=== PATIENT | male | born 1940 | race Caucasian/White ===

== ENCOUNTER 2020-05-04 14:40 | Outpatient (CLI) | payer MEDICARE, OTHER, SELFPAY ==
--- NOTE | ~2020-05-04 | US_ITS ---
EXAMINATION: US venous doppler [facility] DATE: 05/04/2020 15:26 INDICATION: Left lower limb pain. TECHNIQUE: Grayscale ultrasound images without and with compression and Doppler ultrasound images of the left lower extremity veins were obtained. COMPARISON: Ultrasound 08/11/2014 FINDINGS: The visualized portions of left common femoral vein, profunda (deep) femoral vein, femoral vein, popl iteal vein, peroneal veins, posterior tibial veins, and greater saphenous vein outflow are patent. Th ere is a moderate-sized Hickey's cyst. IMPRESSION: 1. No deep venous thrombosis. 2. Moderate-sized left Hickey's cyst. Reviewed, dictated and finalized at location A.
== END 2020-05-04 14:41 | disposition home or self-care (01) ==
PROVIDERS: PCP Family Medicine; Visit Provider Family Medicine
DX: M79.89 Other specified soft tissue disorders (principal); M71.22 Synovial cyst of popliteal space [Baker], left knee
CPT/HCPCS: 93971

== ENCOUNTER → 2020-05-10 10:50 | Outpatient (CLI) | payer MEDICARE, OTHER, SELFPAY ==
--- NOTE | ~2020-05-10 | XR_ITS ---
XR chest 2V 05/10/2020 11:23 Indication: Shortness of breath Procedure: 2 view chest Comparison: Comparison to multiple prior studies sequentially, with oldest reviewed study dated 12/10. Findings: There is left basilar airspace consolidation which has progressed since 11/02/2018. Right elmo ng clear. No pleural effusion, edema or pneumothorax. Status post median sternotomy. There are spinal fusion hardware overlying the lower thoracic spine incompletely visualized. Impression: 1: Progression of left basilar airspace consolidation which may represent atelectasis/scarring and/or developing pneumonia. Reviewed, dictated and finalized at location A. Impression: 1: Progression of left basilar airspace consolidation which may represent atele ctasis/scarring and/or developing pneumonia.
== END ==
PROVIDERS: PCP Family Medicine; Visit Provider Family Medicine
DX: R06.02 Shortness of breath (principal); R91.8 Other nonspecific abnormal finding of lung field
CPT/HCPCS: 71046

== ENCOUNTER → 2020-12-27 10:42 | Outpatient (CLI) | payer MEDICARE, OTHER, SELFPAY ==
--- NOTE | ~2020-12-27 | XR_ITS ---
EXAMINATION: XR chest 2V DATE: 12/27/2020 11:03 INDICATION: Shortness of breath. TECHNIQUE: Frontal and lateral views of the chest were obtained. COMPARISON: Chest 2 views 05/10/2020 FINDINGS: The lung volumes are normal. There is a diffuse interstitial pattern in the lungs with a lo wer lung predominance. No pleural effusion or pneumothorax. Cardiomegaly is noted. Median sternotomy wires are noted. There are changes of posterior fusion procedure in thoracic and lumbar spine. IMPRESSION: 1. Interstitial pattern in the lungs with a lower lung predominance, consistent with mild pulmonary e saqib versus chronic interstitial lung disease. 2. Cardiomegaly. Reviewed, dictated and finalized at location B. IMPRESSION: 1. Interstitial pattern in the lungs with a lower lung predominance, consistent with mild pulmonary edema versus chronic interstitial lung disease. 2. Cardiomegaly.
== END ==
PROVIDERS: Visit Provider Internal Medicine Cardiovascular Disease
DX: R06.00 Dyspnea, unspecified (principal); I25.708 Atherosclerosis of coronary artery bypass graft(s), unspecified, with other forms of angina pectoris; I51.7 Cardiomegaly; R91.8 Other nonspecific abnormal finding of lung field
CPT/HCPCS: 71046

== ENCOUNTER → 2021-01-04 10:25 | Outpatient (CLI) | payer MEDICARE, OTHER, SELFPAY ==
--- NOTE | ~2021-01-04 | XR_ITS ---
XR chest 2V DATE: 01/04/2021 10:36 INDICATION: Shortness of breath TECHNIQUE: PA and lateral views COMPARISON: 12/27/2020 2 view chest FINDINGS: Status post median sternotomy. Thoracolumbar spinal rods and pedicle screws. Cardiomegaly. Aortic calcification. There are diminished infiltrates and/atelectasis in the bilateral lung bases and diminished small rig ht pleural effusion since 12/27/2020. IMPRESSION: Mild improvement of infiltrates and/atelectasis at the lung bases, diminished small right pleural effusion since 12/27/2020 2 Reviewed, dictated and finalized at location B.
== END ==
PROVIDERS: PCP Physician Assistant; Visit Provider Internal Medicine Cardiovascular Disease
DX: R06.02 Shortness of breath (principal); R06.00 Dyspnea, unspecified; I25.10 Atherosclerotic heart disease of native coronary artery without angina pectoris; R91.8 Other nonspecific abnormal finding of lung field
CPT/HCPCS: 71046

== ENCOUNTER → 2024-09-03 13:39 | Outpatient (CLI) | payer MEDICARE, OTHER, SELFPAY ==
--- NOTE | ~2024-09-03 | XR_ITS ---
EXAMINATION: XR chest 2V Exam Date/Time: 09/03/2024 13:50 SODA WORKER HISTORY: Acute cough, SOB Comparison: 01/04/2021. RESULT: Lines, tubes, and devices: Intact sternotomy wires. Partially visualized thoracolumbar fusion hardwa re. An electronic device projects over the midline chest. Lungs and pleura: Diffuse patchy groundglass opacities, worse in the left mid and lower lung, overly ing diffuse coarse reticular opacities. Minimal bilateral costophrenic angle blunting. Low volume wit h crowding in the lateral view. Cardiomediastinal silhouette: Stable. Other: No acute osseous or upper abdominal finding. IMPRESSION: Left mid and lower lung airspace disease possibly representing pneumonia, overlying moderate chronic emphysematous/interstitial change. Reviewed, dictated and finalized at location K. WORKER IMPRESSION: Left mid and lower lung airspace disease possibly representing pneumonia, overl jarrod moderate chronic emphysematous/interstitial change.
== END ==
LOC: EXPCRAD 13:44
PROVIDERS: PCP Physician Assistant; Visit Provider Physician Assistant
DX: R05.1 Acute cough (principal); R06.02 Shortness of breath; R91.8 Other nonspecific abnormal finding of lung field
CPT/HCPCS: 71046

== ENCOUNTER 2024-09-27 00:15 | Emergency (ER) | payer MEDICARE, OTHER, SELFPAY ==
--- NOTE | 2024-09-27 00:47 | ED.CPR ---
HPI - CPR General Chief Complaint: Cardiac Arrest/CPR Stated Complaint: CARDIAC ARREST Time Seen by Provider: 09/27/24 00:47 Source: family and EMS Mode of arrival: EMS History of Present Illness HPI narrative: Patient presents in cardiac arrest with CPR in progress. Found down in bed at home with last known well 30 minutes prior. had stated he had been weak lately. Found on the floor. Pulseless for EMS and CPR immediately initiated. Patient found to have asystole and PEA. 18 minutes CPR performed after which ROSC achieved for 3-4 minutes and lost again, chest compressions re-initiated for 6-7 minutes. Glucose 306 for EMS. IO in right tibia and intubated with 7.5 ETT after which there has been return of bloody sputum requiring suction, approximately 150ml bright red secretions out. History CHF. Related Data Home Medications ?Medication ?Instructions ?Recorded ?Confirmed ?Last Taken ?Type amlodipine 5 mg tablet 5 mg PO DAILY 08/02/19 05/10/24 Unknown History finasteride 1 mg tablet 1 mg PO DAILY 08/02/19 05/10/24 Unknown History folic acid 400 mcg tablet 0.4 mg PO DAILY 08/02/19 05/10/24 Unknown History losartan 100 1 tablet PO DAILY 08/02/19 05/10/24 Unknown History mg-hydrochlorothiazide 12.5 mg tablet (Hyzaar) metoprolol tartrate 50 mg tablet 50 mg PO Q12H 08/02/19 05/10/24 Unknown History pantoprazole 40 mg tablet,delayed 40 mg PO QAM 08/02/19 05/10/24 Unknown History release atorvastatin 20 mg tablet 20 mg PO QPM 01/02/20 05/10/24 Unknown History isosorbide dinitrate 30 mg tablet 30 mg PO BID 01/15/23 05/10/24 Unknown History gpfvlnxx-rsk-mviai 120 mcg-lutein tablet PO 01/15/23 05/10/24 Unknown History 150 mcg-herb 50 mg chewable tablet (Alive Men's 50 Plus Multivitamin) furosemide 40 mg tablet 120 mg PO QAM 04/27/23 05/10/24 Unknown History Allergies Allergy/AdvReac Type Severity Reaction Status Date / Time No Known Allergies Allergy Verified 05/10/24 13:08 [facility] Past Medical History Medical History CHF (congestive heart failure) Vitamin D deficiency Type 2 diabetes mellitus with hyperglycemia, with long-term current use of insulin Hypertension Hyperlipidemia Surgical History Surgical History History of quadruple bypass History of open heart surgery 2 stents History of back surgery x2 Family History Family History Other Cerebrovascular accident Social History Social History Smoking packs per day: 1 Smoking cigarettes per day: 20.0 Years smoked: 16 Smoking pack-years: 16.00 Smoking status: Former smoker Tobacco type: cigarettes Alcohol intake: current Alcohol use details: very little Substance use: never Lack of Transportation: No Lack of Food: Never True Current Housing: I Have Housing Concerned About Future Housing: No Difficulty Paying Gas/Electric Bills: No Difficulty Paying for Meds: No Currently Unemployed: No Education: Master's Degree or Higher Difficulty w/ Childcare or Family Care: No Living arrangements: with family Additional living arrangements comments: Exam Narrative: Vitals: Patient does not have vital signs General: Patient is unresponsive and pale Head: Normocephalic, atraumatic. Eyes: Pupils are fixed and dilated. ENT: External ears WNL. Nares patent. ETT in place with jorge bloody secretions. Neck: Supple no masses. Trachea is midline. Lungs: No spontaneous respirations, coarse but bilateral breath sounds with BVM. Cardiovascular: Marcus device performing compressions which does result in palpable femoral pulses during compressions. Abdomen. Soft MSK: No deformity. Neurological: Patient does not display any spontaneous activity, is unresponsive, does not withdraw to pain. Skin: Cold and pale. MDM - Cardiac Arrest/CPR MDM Narrative Medical decision making narrative: This is a 84 year old male who presents to the emergency department as a resuscitation with EMS with chief complaint of cardiac arrest. EMS was called to the scene, and found the patient to be pulseless, and thus started resuscitative efforts. Last known well had been 30 minutes prior to calling 911. Asystole and PEA with Total down time on scene before obtaining ROSC 18 minutes. Other than the initiation of compressions, they have initiated epinephrine via IO and intubated patient with 7.5 ETT. had reported to them that patient had history CHF and had been weak recently. Patient briefly had pulse en route before becoming pulseless again and compressions resumed. 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 Immediately upon entering, resuscitation compressions are continued, the patient is disrobed, and placed on continuous cardiac monitoring with defibrillation pads. At first pulse check, no pulses are palpated but there is cardiac activity on ultrasound, poor squeeze but not fibrillatory. ACLS continued. See RN notes for log of timing of events and medications administered. Patient predominantly has PEA but there is an episode of ROSC after which patient quickly becomes bradycardic and then vtach on the monitor for which defibrillation performed. Went to family room and patient's notes they saw his channel rebuilder Dr Bagley today given he has gained 15 points since yesterday but no changes made to meds. brought to bedside where resuscitation efforts are being continued as per ACLS protocols. We discussed that on several pulse checks he does not have a pulse and at other times he does but then quickly loses it again. Given the patient's downtime and the efforts thus far, patient's does agree with terminating further efforts. After compressions held, he does have a palpable pulse (technically ROSC) with an organized rhythm briefly, likely secondary to some lingering effects of epinephrine but quickly becomes bradycardic and loses pulses. Patient is pronounced . Time of is 00:44. Family reports PCP is Neema Garay. Differential Diagnosis Differential diagnosis: Likely acute massive pulmonary embolism, acute respiratory failure, acute myocardial infarction, cardiac arrest and sudden cardiac Lab Data Attestation: I reviewed the patient's lab results. Labs: Lab Results 09/27/24 Range/Units 00:18 POC Capillary Glucose 177 H (65-105) mg/dl Discharge Plan Discharge Clinical Impression: Cardiopulmonary arrest Patient Disposition: Condition: Patient Language: Azeri Prescriptions: No Action metoprolol tartrate 50 mg tablet 50 mg PO Q12H losartan-hydrochlorothiazide [Hyzaar] 100-12.5 mg tablet 1 tablet PO DAILY pantoprazole 40 mg tablet,delayed release (DR/EC) 40 mg PO QAM folic acid 400 mcg tablet 0.4 mg PO DAILY amlodipine 5 mg tablet 5 mg PO DAILY finasteride 1 mg tablet 1 mg PO DAILY furosemide 40 mg tablet 120 mg PO QAM (DME) pen needle, diabetic [BD Ultra-Fine Mini Pen Needle] 31 gauge x 3/16 needle See Rx Instructions .ROUTE .MEDSUPPLY Qty: 100 1RF Rx Instructions: use once daily metformin 500 mg tablet extended release 24 hr 1,000 mg PO BID 90 Days Qty: 360 1RF docusate sodium [Colace] 100 mg capsule 100 mg PO DAILY Qty: 90 1RF atorvastatin 20 mg tablet 20 mg PO QPM isosorbide dinitrate 30 mg tablet 30 mg PO BID Rx Instructions: allow nitrate-free interval of 12-14 hrs per 24-hr period Alive Men's 50 Plus Multivit 120 mcg-150 mcg -50 mg tablet,chewable PO (DME) FreeStyle Precision Kevin Strips Strip See Rx Instructions .Route Qty: 50 0RF Rx Instructions: As directed (DME) FreeStyle Dutch 2 Sensor Kit See Rx Instructions .Route Qty: 6 2RF Rx Instructions: As directed, check 4 times daily Baqsimi 3 mg/actuation spray,non-aerosol 3 mg intranasal ONCE PRN (Reason: hypoglycemia) Qty: 1 0RF Rx Instructions: as a single dose glucose [Dex4 Glucose] 4 gram tablet,chewable 16 g PO Q15M PRN (Reason: hypoglycemia) Qty: 60 1RF Rx Instructions: until symptoms of low blood sugar are controlled (DME) FreeStyle Dutch 2 [place] Misc See Rx Instructions .Route Qty: 1 0RF Rx Instructions: As directed, check 4 times daily insulin glargine [Lantus Solostar U-100 Insulin] 100 unit/mL (3 mL) insulin pen 30 unit subcut DAILY 90 Days Qty: 27 1RF dulaglutide 4.5 mg/0.5 mL pen injector 4.5 mg subcut WEEKLY Qty: 6 1RF Follow-up/Referrals: Tanisha,DEIDRE Bethea [Primary Care Provider] - Time of Disposition: 00:44
--- NOTE | 2024-09-27 00:58 | PC.NURSE ---
0017: Patient arrives via EMS to room 7 in ED. 0019: A pulse check is performed, PEA. An Epi is given followed by a flush. CPR resumed. 0020: EDP Dr. Carvalho uses US at bedside; patient not in full arrest 0021: Calcium IVP is given. 0023: Pulse check; PEA. EDP Dr. Carvalho state no pulses in the femoral arteries. 0024: EDP Dr. Carvalho states that she feels patient has a carotid pulse. Sinus adalberto is the rhythm. 0025: Patient continues to have carotid pulses, but weak, patient still in Sinus adalberto (35bpm). 0026: Patient's rhythm changes to ventricular tachycardia. No pulse present. [place] charged and patient shocked at 200 Joules. 0027: Another round of Epi is given 0028: EMS Marcus device is switched out with the EDs Marcus device. 0030. A castellano catheter is placed. [place] urine flowed out. 0031: Pulse check. PEA. Epi pushed followed by a flush. 0033: An amp of Bicarb is given followed by a flush. 0035: Pulse check; PEA 0041: EDP Dr. Carvalho palpates a carotid artery and feels pulse. Per EDP Dr. Carvalho ROSC has been obtained, but she feels this is due to lingering effects of Epi. 0042: A blood pressure is obtained 37/27 0043: Pulse check; PEA. 0044: EDP Dr. Carvalho states TOD 0044.
--- NOTE | 2024-09-27 02:23 | PC.NURSE ---
Throughout whole cardiac arrest and efforts approximately 300mL of red/pink frothy fluid was suctioned out of the patient from both the ETT inline and an Yankauer.
--- OUTSIDE RECORDS SUMMARY | 2024-09-27 06:37 | XMS_ITS | Encounter Summary ---
Author Organization [facility] Address [address] [place] [address] Care Team Providers Care Shop Repairer Name Role Phone Unavailable Primary Care Provider Unavailabl e Encounter Details Date Type Department Care Team (Late st Contact Info) Description 09/06/2018 Lab Requisition [facility] Care DermPath Lab [address] [facility], [facility] [place] [address] Meenakshi Chan MD [address] [facility] [address] [place] [address] Social History Tobacco Use Types Packs/Day Years Used Date Smoking Tobacco: Never Assessed Sex and Gender Information Value Date Recorded Sex Assigned at Not on file Gender Identity Not on file Sexual Orientation Not on file documented as of this encounter Plan of Treatment Not on file documented as of this encounter Procedures Procedure Name Priority Date/Time Associated Diagnosis Comments DERMATOPATH TECHNICAL REPORT Routine 09/03/2018 12:00 AM MANAGER SPANISH documented in this encounter Results * DERMATOPATH TECHNICAL REPORT (09/03/2018 12:00 AM MANAGER SPANISH) Case Report Dermatopathology Report Case: [id number] Authorizing Provider: Meenakshi Chan MD Collected: 09/03/2018 12:00 AM Pathologist: Julienne Dawn MD Received: 09/06/2018 08:08 AM Specimen: Skin, left thigh 9 12:16 PM MANAGER SPANISH DERMATOPATHOLOGY LABORATORY Clinical History Bx proven BCC. Check margins. Previous Bx: [id number]. 9 12:16 PM MANAGER SP[facility]ISH DERMATOPATHOLOGY LABORAT[facility] Gross Description Specimen A: Received is one formalin filled container labeled with the patient's name and designated left thigh.The specimen consists of an ellipse measuring [id number] and is oriented with the notch at the 3 o'clock position labeled on the requisition as superior. The 12 to 6 o'clock margin is inked green. The 6 o'clock to 12 o'clock margin is inked black. The 12 o'clock tip is submitted in cassette 1. The 6 o'clock tip is submitted in cassette 2. The remainder of the ellipse is serially sectioned and submitted in cassettes 3-6. Jar 0. [facility] Dermat[facility] performed the technical component only. 9 12:16 PM [facility] DERMATOPATHOLOGY [facility]ORATORY Embedded Images 12:16 PM [facility] DERMATOPATHOLOGY [facility]ORAT[facility] DISCLAIMER An external and internal positive and negative controls are appropriate for the histochemical, immunohistochemical and immunofluorescence stain(s) in this case (if any), except where stated explicitly. The performance characteristics of the stain(s) cited in this report were developed and its performance characteristic determined by the Dermatopathology Laboratory at [facility], directed by Dr. Dede Ku. These tests need not be, and therefore are not, approved by the [place] Food and Drug Administration. The tests are used for clinical purposes. 9 12:16 PM [facility] DERMATOPATHOLOGY LABORATORY Pathology/Cytolog y TISSUE SPECIMEN FROM SKIN / Unknown 09/03/2018 09/06/2018 8:08 AM MANAGER SPANISH Meenakshi Chan MD LAB - PATHOLOGY/CYTO LOGY ORDERABLES DERMATOPATHOLOGY LABORATORY [facility] - Department of Dermatology [address] [place] [address] 5th [place] [address], [facility] [phone] documented in this encounter Visit Diagnoses Not on filedocumented in this encounter
--- OUTSIDE RECORDS SUMMARY | 2024-09-27 06:37 | XMS_ITS | Encounter Summary ---
Author Organization [facility] Address [address] [place] [address] Care Team Providers Care Piece Marker Small Arms Name Role Phone Unavailable Primary Care Provider Unavailabl e Encounter Details Date Type Department Care Team (Late st Contact Info) Description 07/07/2018 Lab Requisition [facility] Care DermPath Lab [address] [facility], [facility] [place] [address] Meenakshi Chna MD [address] [facility] [address] [place] [address] Social History Tobacco Use Types Packs/Day Years [...] Associated Diagnosis Comments DERMATOPATH TECHNICAL REPORT Routine 07/05/2018 12:00 AM MATERIALS ASSISTANT documented in this encounter Results * DERMATOPATH TECHNICAL REPORT (07/05/2018 12:00 AM MATERIALS ASSISTANT) Case Report Dermatopathology Report Case: [id number] Authorizing Provider: Meenakshi Chan MD Collected: 07/05/2018 12:00 AM Pathologist: Katie Aceevs MD Received: 07/07/2018 07:07 AM Specimen: Skin, left thigh 8 12:59 PM MATERIALS ASSISTANT DERMATOPATHOLOGY LABORATORY Clinical History R/O BCC, pink scaly plaque 8 12:59 PM MATERIALS ASSISTANT DERMATOPATHOLOGY LABORATORY Gross Description Specimen A: Received is one formalin filled container labeled with the patient's name and designated left thigh. The specimen consists of a shave biopsy measuring [id number] mm. Jar 0. [facility] Dermatopathology Laboratory performed the technical component only. 8 12:59 PM [facility] Embedded Images 8 12:59 PM [facility] DISCLAIMER An external and internal positive and negative controls are appropriate for the histochemical, immunohistochemical and immunofluorescence stain(s) in this case (if any), except where stated explicitly. The performance characteristics of the stain(s) cited in this report were developed and its performance characteristic determined by the Dermatopathology Laboratory at [facility]. These tests need not be, and therefore are not, approved by the [place] Food and Drug Administration. The tests are used for clinical purposes. 8 12:59 PM [facility] Pathology/Cytolog y TISSUE SPECIMEN FROM SKIN / Unknown 07/05/2018 07/07/2018 7:07 AM MATERIALS ASSISTANT Meenakshi Chan MD LAB - PATHOLOGY/CYTO LOGY ORDERABLES DERMATOPATHOLOGY LABORATORY [facility] - Department of Dermatology [address] [facility], 5th Floor Lab B [address] [phone] documented in this encounter Visit Diagnoses Not on filedocumented in this encounter
--- OUTSIDE RECORDS SUMMARY | 2024-09-27 06:37 | XMS_ITS | Encounter Summary ---
Author Organization [facility] Address [address] [place] [address] Care Team Providers Care Emr Analyst Name Role Phone Unavailable Primary Care Provider Unavailabl e Encounter Details Date Type Department Care Team (Late st Contact Info) Description 12/23/2019 Lab Requisition [facility] DermPath Lab [address] [facility], [facility] [place] [address] Meenakshi Chan MD [address] [facility] 3 [place] [address] Social History Tobacco Use Types Packs/Day Years [...] Associated Diagnosis Comments DERMATOPATH TECHNICAL REPORT Routine 12/22/2019 12:00 AM CDT documented in this encounter Results * DERMATOPATH TECHNICAL REPORT (12/22/2019 12:00 AM CDT) Case Report Dermatopathology Report Case: [id number] Authorizing Provider: Meenakshi Chan MD Collected: 12/22/2019 12:00 AM Ordering Location: [facility] DermPath Lab Received: 12/23/2019 11:20 AM Pathologist: Deena Ku MD Specimen: Skin, left inner lower leg 0 2:33 PM CDT DERMATOPATHOLOGY LABORATORY Clinical History R/O BCC, SCC; eroded pink papule. 0 2:33 PM CDT DERMATOPATHOLOGY LABORATORY Gross Description Specimen A: Received is one formalin filled container labeled with the patient's name and designated left inner lower leg. The specimen consists of a shave measuring [id number]. Jar 0. [facility] Dermatopathology Laboratory performed the technical component only. 0 2:33 PM CDT DERMATOPATHOLOGY LABORATORY Embedded Images 0 2:33 PM CDT DERMATOPATHOLOGY LABORATORY DISCLAIMER An external and internal positive and negative controls are appropriate for the histochemical, immunohistochemical and immunofluorescence stain(s) in this case (if any), except where stated explicitly. The performance characteristics of the stain(s) cited in this report were developed and its performance characteristic determined by the Dermatopathology Laboratory at [facility], directed by Dr. Dede Ku. These tests need not be, and therefore are not, approved by the [place] Food and Drug Administration. The tests are used for clinical purposes. 0 2:33 PM CDT DERMATOPATHOLOGY LABORATORY Pathology/Cytolog y TISSUE SPECIMEN FROM SKIN / Unknown 12/22/2019 12/23/2019 11:20 AM CDT Meenakshi Chan MD LAB - PATHOLOGY/CYTO LOGY ORDERABLES DERMATOPATHOLOGY LABORATORY [facility] - Department of Dermatology [address] [facility] 5th [place] [address], [facility] [phone] documented in this encounter Visit Diagnoses Not on filedocumented in this encounter
--- OUTSIDE RECORDS SUMMARY | 2024-09-27 06:38 | XMS_ITS | Encounter Summary ---
Author Organization [facility] Address [address] [place] [address] Care Team Providers Care Mental Telepathist Name Role Phone Unavailable Primary Care Provider Unavailabl e Encounter Details Date Type Department Care Team (Late st Contact Info) Description 06/05/2023 Lab Requisition [facility] - DermPath Lab [address] [place] [address] Bismark Daniel MD [address] [place] [address] Social History Tobacco Use Types Packs/Day Years Used Date Smoking Tobacco: Never Assessed Sex and Gender Information Value Date Recorded Sex Assigned at Not on file Gender Identity Not on file Sexual Orientation Not on file documented as of this encounter Plan of Treatment Not on file documented as of this encounter Procedures Procedure Name Priority Date/Time Associated Diagnosis Comments DERMATOPATHOLOGY Routine 06/04/2023 12:0 0 AM CDT documented in this encounter Results * DERMATOPATHOLOGY (06/04/2023 12:00 AM CDT) Case Report Dermatopathology Report Case: [id number] Authorizing Provider: Bismark Daniel MD Collected: 06/04/2023 12:00 AM Ordering Location: [facility] Received: 06/05/2023 09:10 AM Pathologist: Katie Aceves MD Specimen: Skin, right stricklnad 12:56 PM CDT DERMATOPATHOLOGY LABORATORY Final Diagnosis Specimen A. SKIN, right strickland: BASAL CELL CARCINOMA, SUPERFICIAL MULTIFOCAL (C44.712) STASIS CHANGES (L30.8) 12:56 PM CDT DERMATOPATHOLOGY LABORATORY Clinical History AK vs. BCC. Path# [id number] 12:56 PM T DERMATOPATHOLOGY LABORATORY Gross Description Specimen A: Received is one formalin filled container labeled with the patient's name and designated right strickland. The specimen consists of a shave biopsy measuring 7x5x1 mm. Jar 0. 12:56 PM T DERMATOPATHOLOGY LABORATORY Microscopic Description Specimen A. SKIN, right strickland: Attached to the undersurface of the epidermis, there are small aggregates of basaloid cells with a high nuclear to cytoplasmic ratio and peripheral palisading. The dermis shows a sparse, perivascular lymphocytic infiltrate surrounding dilated, thick-walled vessels, which are increased in number. 12:56 PM T DERMATOPATHOLOGY LABORATORY Disclaimer An external and internal positive and negative controls are appropriate for the histochemical, immunohistochemical and immunofluorescence stain(s) in this case (if any), except where stated explicitly. The performance characteristics of the stain(s) cited in this report were developed and its performance characteristic determined by the Dermatopathology Laboratory at [facility], directed by Dr. Dede Ku. These tests need not be, and therefore are not, approved by the [place] Food and Drug Administration. The tests are used for clinical purposes. Billing Codes Specimen Charges Stain Charges 86367 1 12:56 PM CDT DERMATOPATHOLOGY LABORATORY Embedded Images 12:56 PM CDT DERMATOPATHOLOGY LABORATORY Pathology/Cytolog y TISSUE SPECIMEN FROM SKIN / Unknown 06/04/2023 06/05/2023 9:10 AM CDT Bismark Daniel MD LAB - PATHOLOGY/CYTO LOGY ORDERABLES DERMATOPATHOLOGY LABORATORY [facility] - Department of Dermatology [address], [address] [phone] documented in this encounter Visit Diagnoses Not on filedocumented in this encounter
--- OUTSIDE RECORDS SUMMARY | 2024-09-27 06:38 | XMS_ITS | Encounter Summary ---
Author Organization [facility] Address [address] [place] [address] Phone Care Team Providers Care Bump Grader Operator Name Role Phone Neema Garay Primary Care Provider [phone] Malachi Braden MD Unavailable Ag Redding MD Unavailable Rosalinda Bingham MD Unavailable [phone] Yissel Lenoard MD Unavailable [phone] Kostas Martinez MD Unavailable [phone] Bradley Griffin MD Unavailable [phone] Encounter Details Date Type Department Care Team (Late st Contact Info) Description 09/27/2024 Telephone [facility] Scheduling [address] [place] [address] Chery Quijano Social History Tobacco Use Types Packs/Day Years Used Date Smoking Tobacco: Former Cigarettes 1.1 26.7 0 03/30/1966 - 03/30/1986 Smokeless Tobacco: Never Alcohol Use Standard Drinks/Week Comments Yes 1 (1 standard drink = 0.6 oz pur e alcohol) rare [facility] Utilities Answer Date Recorded In the past 12 months has th e electric, gas, oil, or water company threatened to shut off services in your home? No 04/04/2024 Social Connection and Isolat ion Panel [NHANES] Answer Date Recorded In a typical week, how many times do you talk on the phone with family, friends, or neighbors? More than three times a week 04/04/2024 How often do you get togethe r with friends or relatives? More than three times a week 04/04/2024 How often do you attend chur ch or sabianist services? Never 04/04/2024 Do you belong to any clubs o r organizations such as caodaism groups, unions, fraternal or athletic groups, or school groups? No 04/04/2024 How often do you attend meet ings of the clubs or organizations you belong to? Never 04/04/2024 Are you , , di vorced, , never , or living with a partner? 04/04/2024 AUDIT-C Answer Date Recorded Q1: How often do you have a drink containing alcohol? Never 08/29/2024 Q2: How many drinks containi ng alcohol do you have on a typical day when you are drinking? Patient does not drink Q3: How often do you have si x or more drinks on one occasion? Never 08/29/2024 Overall Financial Resource Strain (CARDIA) Answe r Date Recorded How hard is it for you to pa y for the very basics like food, housing, medical care, and heating? Not very hard 04/04/2024 PHQ-2 Answer Date Recorded PHQ-2 Total Score (If total score is 3 or more points, staff should administer the PHQ-9) 0 08/29/2024 Hunger Vital Sign Answer Date Recorded Within the past 12 months, y ou worried that your food would run out before you got the money to buy more. Never true 04/04/20 24 Within the past 12 months, t he food you bought just didn't last and you didn't have money to get more. Never true 04/04/2024 PRAPARE - Transportation Answer Date Re corded In the past 12 months, has l ack of transportation kept you from medical appointments or from getting medications? No 03/17 In the past 12 months, has l ack of transportation kept you from meetings, work, or from getting things needed for daily living? No 04/04/2024 Housing Stability Vital Sign Answer Sae e Recorded In the last 12 months, was t here a time when you were not able to pay the mortgage or rent on time? No 04/04/2024 In the past 12 months, how m any times have you moved where you were living? 0 04/04/2024 At any time in the past 12 m [facility], were you homeless or living in a nursing home (including now)? No 04/04/2024 Personal Safety Answer Date Recorded Have you ever been in or are you currently in a harmful physical or emotional relationship or is someone making you feel afraid or unsafe? Denies 06/08/2024 Sex and Gender Information Value Date Recorded Sex Assigned at Not on file Legal Sex Male 8:56 PM BARBER OR BEAUTY SHOP MANAGER Gender Identity Male 07/06/2024 6:10 PM BARBER OR BEAUTY SHOP MANAGER Sexual Orientation Not on file documented as of this encounter Miscellaneous Notes * Telephone Encounter - Meenakshi Maldonado - 09/27/2024 3:16 AM CST PT POC scanned into chart, no signature required. Received by [facility] dept in error. Thank you. ER OR BEAUTY SHOP MANAGER documented in this encounter Plan of Treatment Not on file documented as of this encounter Visit Diagnoses Not on filedocumented in this encounter Additional Health Concerns Infection Onset Date Last Indicated Resolved Time COVID: Recovered Comment:Added based on recent COVID infection. 09/08/2024 09/08/2024 documented as of this encounter Care Teams Bump Grader Operator Relationship Specialty Start Date End Date Neema Garay PA [address] [place] [address] PCP - General Internal Medicine 12/24/20 Malachi Braden MD [address] [place] [address] [address] [place] [address] Consulting Physician Cardiology 01/07/21 Ag Redding MD [address] [place] [address] [address] [place] [address] Consulting Physician Family Medicine 07/08/23 Rosalinda Bingham MD [address] [address] Consulting Physician Pulmonary Disease 04/08/24 Yissel Leonard MD [address] [facility] [address] [place] [address] Referring Physician Internal Medicine 04/26/24 Kostas Martinez MD [address] [facility] [address] [place] [address] Consulting Physician Cardiology 04/26/24 Bradley Griffin MD [address] [facility] [address] [place] [address] Consulting Physician Physical Medicine and Rehabilitation 08/29/24 documented as of this encounter
--- OUTSIDE RECORDS SUMMARY | 2024-09-27 06:38 | XMS_ITS | Encounter Summary ---
Author Organization [facility] Care Team Providers Care Treating Engineer Helper Name Role Phone Justice Ortega MD Primary Care Provider [phone] Neema Garay Primary Care Provider [phone] Malachi Braden MD Unavailable [phone] Ag Redding MD Unavailable [phone] Kadi De La Garza MA Unavailable Rosalinda Bingham MD Unavailable [phone] Yissel Leonard MD Unavailable [phone] Kostas Martinez MD Unavailable [phone] Trinity Maciel MA Unavailable Unavailable Bradley Griffin MD Unavailable [phone] Encounter Details Date Type Department Care Team (Latest Contact Info) Description 02/12/2016 Orders Only [facility] Provider, MD Ella [address] [place] [address] Social History Tobacco Use Types Packs/Day Years Used Date Smoking Tobacco: Never Assessed Sex and Gender Information Value Date Recorded Sex Assigned at Not on file Legal Sex Male 8:56 PM COMPOUNDING ASSISTANT Gender Identity Male 07/06/2024 6:10 PM COMPOUNDING ASSISTANT Sexual Orientation Not on file documented as of this encounter Plan of Treatment Not on file documented as of this encounter Procedures Procedure Name Priority Date/Time Associated Diagnosis Comments SCAN - LABS 02/13/2016 12:00 AM CDT documented in this encounter Results * SCAN - LABS (02/13/2016 12:00 AM CDT) Narrative 02/13/2016 12:00 AM CDT Ordered by an unspecified provider. us Historical Provider Final Res ult documented in this encounter Visit Diagnoses Not on filedocumented in this encounter Additional Health Concerns Infection Onset Date Last Indicated Resolved Time COVID19 09/21/2021 09/21/2021 10/01/2021 3:05 AM COMPOUNDING ASSISTANT COVID: Recovered Comment:Added based on recent COVID infection. 10/01/2021 10/01/2021 01/29/2022 3:05 AM C DT COVID: Suspected 08/29/2024 08/29/2024 08/29/2024 5:16 PM COMPOUNDING ASSISTANT COVID19 08/29/2024 08/29/2024 09/08/2024 3:05 AM COMPOUNDING ASSISTANT COVID: Recovered Comment:Added based on recent COVID infection. 09/08/2024 09/08/2024 documented as of this encounter Care Teams Treating Engineer Helper Relationship Specialty Start Date End Date Justice Ortega MD [address] [place] [address] PCP - General 02/05/17 12/23/20 Neema Garay PA [address] [facility] [address] [place] [address] PCP - General Internal Medicine 12/24/20 Malachi Braden MD [address] [facility] [address] [address] Consulting Physician Cardiology 01/07/21 Ag Redding MD [address] [facility] [address] [place] [address] Consulting Physician Family Medicine 07/08/23 Kadi De La Garza MA [address] [facility] [address] [place] [address] ACO Care Resaw Machine Operator 02/02/24 02/03/24 Rosalinda Bingham MD [address] [facility] [address] [place] [address] Consulting Physician Pulmonary Disease 04/08/24 Yissel Leonard MD [address] [facility] [address] [place] [address] Referring Physician Internal Medicine 04/26/24 Kostas Martinez MD [address] [facility] [address] [place] [address] Consulting Physician Cardiology 04/26/24 Trinity Maciel MA [address] [facility] [address] [place] [address] ACO Care Resaw Machine Operator 05/16/24 05/16/24 Bradley Griffin MD [address] [facility] [address] [place] [address] Consulting Physician Physical Medicine and Rehabilitation 08/29/24 documented as of this encounter
--- OUTSIDE RECORDS SUMMARY | 2024-09-27 06:38 | XMS_ITS | Encounter Summary ---
Author Organization [facility] Address [address] [facility] [place] [address] Care Team Providers Care Foam Fabricator Name Role Phone Unavailable Primary Care Provider Unavailabl e Encounter Details Date Type Department Care Team (Late st Contact Info) Description 01/18/2020 Lab Requisition [facility] DermPath Lab [address] [place] [address] Lucinda Lima MD [address] [place] [address] Social History Tobacco Use Types Packs/Day Years Used Date Smoking Tobacco: Never Assessed Sex and Gender Information Value Date Recorded Sex Assigned at Not on file Gender Identity Not on file Sexual Orientation Not on file documented as of this encounter Plan of Treatment Not on file documented as of this encounter Procedures Procedure Name Priority Date/Time Associated Diagnosis Comments DERMATOPATHOLOGY Routine 01/17/2020 12:0 0 AM CDT documented in this encounter Results * DERMATOPATHOLOGY (01/17/2020 12:00 AM CDT) Case Report Dermatopathology Report Case: [id number] Authorizing Provider: Lucinda Lima MD Collected: 01/17/2020 12:00 AM Ordering Location: [facility] DermPath Lab Received: 01/18/2020 07:36 AM Pathologist: Deena Ku MD Specimen: Skin, left cheek 0 5:10 PM CDT DERMATOPATHOLOGY LABORATORY Final Diagnosis Specimen A. 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 0 5:10 PM CDT DERMATOPATHOLOGY LABORATORY Gross Description Specimen A: Received is one formalin filled container labeled with the patient's name and designated left cheek. The specimen consists of a shave measuring 15o9g1to. Jar 0. 0 5:10 PM CDT DERMATOPATHOLOGY LABORATORY Microscopic Description Specimen A. SKIN, left cheek: The epidermis is acanthotic and shows full thickness disorderly maturation of keratinocytes, mitoses at different levels, and dyskeratotic cells. There is overlying parakeratosis and hyperkeratosis. 0 5:10 PM CDT DERMATOPATHOLOGY LABORATORY Disclaimer An external and internal positive and negative controls are appropriate for the histochemical, immunohistochemical and immunofluorescence stain(s) in this case (if any), except where stated explicitly. The performance characteristics of the stain(s) cited in this report were developed and its performance characteristic determined by the Dermatopathology Laboratory at [facility], directed by Dr. Dede Ku. These tests need not be, and therefore are not, approved by the [place] Food and Drug Administration. The tests are used for clinical purposes. Billing Codes Specimen Charges Stain Charges 45618 1 0 5:10 PM CDT DERMATOPATHOLOGY LABORATORY Embedded Images 0 5:10 PM CDT DERMATOPATHOLOGY LABORATORY Pathology/Cytolog y TISSUE SPECIMEN FROM SKIN / Unknown 01/17/2020 01/18/2020 7:36 AM CDT Lucinda Lima MD LAB - PATHOLOGY/CYTO LOGY ORDERABLES DERMATOPATHOLOGY LABORATORY [facility] - Department of Dermatology Communications [place] [address], [facility] [phone] documented in this encounter Visit Diagnoses Not on filedocumented in this encounter
--- OUTSIDE RECORDS SUMMARY | 2024-09-27 06:38 | XMS_ITS | Patient Health Summary ---
Author Organization [facility] Address [address] [place] [address] Care Team Providers Care Patient Access Coordinator Name Role Phone Unavailable Primary Care Provider Unavailabl e Note from [facility],non-owned Affiliates and Associated Physician Practices is amultiple site organization consisting of ambulatory clinics and hospital sitesin [place], [place], [place] and [place]. This disclosure is being madepursuant to the Care Everywhere program and may not contain all information available regarding this patient. Last updated 18.[facility] Social History Tobacco Use Types Packs/Day Years Used Date Smoking Tobacco: Never Assessed Sex and Gender Information Value Date Recorded Sex Assigned at Not on file Gender Identity Not on file Sexual Orientation Not on file Procedures * DERMATOPATHOLOGY(Performed 06/04/2023) * DERMATOPATHOLOGY(Performed 01/17/2020) * DERMATOPATH TECHNICAL REPORT(Performed 12/22/2019) * DERMATOPATH TECHNICAL REPORT(Performed 09/03/2018) * DERMATOPATH TECHNICAL REPORT(Performed 07/05/2018) Results * DERMATOPATHOLOGY (06/04/2023 12:00 AM CDT) Only the most recent of2 resultswithin the time period is included. Case Report Dermatopathology Report Case: [id number] Authorizing Provider: Bismark Daniel MD Collected: 06/04/2023 12:00 AM Ordering Location: [facility] DermPath Lab Received: 06/05/2023 09:10 AM Pathologist: Katie Aceves MD Specimen: Skin, right strickland 12:56 PM CDT DERMATOPATHOLOGY LABORATORY Final Diagnosis Specimen A. SKIN, right strickland: BASAL CELL CARCINOMA, SUPERFICIAL MULTIFOCAL (C44.712) STASIS CHANGES (L30.8) 12:56 PM CDT DERMATOPATHOLOGY LABORATORY Clinical History AK vs. BCC. Path# [id number] 12:56 PM CDT DERMATOPATHOLOGY LABORATORY Gross Description Specimen [...] which are increased in number. 12:56 PM CDT DERMATOPATHOLOGY LABORATORY Disclaimer An external and internal positive and negative controls are appropriate for the histochemical, immunohistochemical and immunofluorescence stain(s) in this case (if any), except where stated explicitly. The performance characteristics of the stain(s) cited in this report were developed and its performance characteristic determined by the Dermatopathology Laboratory at [facility], directed by Dr. Dede Ku. These tests need not be, and therefore are not, approved by the [place] Food and Drug Administration. The tests are used for clinical purposes. Billing Codes Specimen Charges Stain Charges 57052 1 12:56 PM CDT DERMATOPATHOLOGY LABORATORY Embedded Images 12:56 PM CDT DERMATOPATHOLOGY LABORATORY Pathology/Cytolog y TISSUE SPECIMEN FROM SKIN / Unknown 06/04/2023 06/05/2023 9:10 AM CDT Bismark Daniel MD LAB - PATHOLOGY/CYTO LOGY ORDERABLES DERMATOPATHOLOGY LABORATORY [facility] - Department of Dermatology [address], [address] [phone] * DERMATOPATH TECHNICAL REPORT (12/22/2019 12:00 AM CDT) Only the most recent of3 resultswithin the time period is included. Case Report Dermatopathology Report Case: [id number] Authorizing Provider: Meenakshi Chan MD Collected: 12/22/2019 12:00 AM Ordering Location: [facility] DermPath Lab Received: 12/23/2019 11:20 AM [...] The specimen consists of a shave measuring [id number]. Jar 0. [facility] Dermatopathology Laboratory performed the technical component [...] characteristic determined by the Dermatopathology Laboratory at [facility], directed by Dr. Dede Ku. These tests need not be, and therefore are not, approved by the [place] Food and Drug Administration. The tests are used for clinical purposes. 0 2:33 PM CDT DERMATOPATHOLOGY LABORATORY Pathology/Cytolog y TISSUE SPECIMEN FROM SKIN / Unknown 12/22/2019 12/23/2019 11:20 AM CDT Meenakshi Chan MD LAB - PATHOLOGY/CYTO LOGY ORDERABLES DERMATOPATHOLOGY LABORATORY [facility] - Department of Dermatology [address] [place] [address], [address]th [place] [address], [facility] [phone]
--- OUTSIDE RECORDS SUMMARY | 2024-09-27 06:38 | XMS_ITS | Encounter Summary ---
Author Organization [facility] Address [address] [place] [address] Care Team Providers Care Fashion Director Party Plan Sales Name Role Phone Neema Garay Primary Care Provider [phone] Malachi Braden MD Unavailable Ag Redding MD Unavailable [phone] Kadi De La Garza MA Unavailable Rosalinda Bingham MD Unavailable Yissel Leonard MD Unavailable [phone] Kostas Martinez MD Unavailable [phone] Trinity Maciel MA Unavailable Unavailable Bradley Griffin MD Unavailable [phone] Encounter Details Date Type Department Care Team (Late st Contact Info) Description 09/11/2023 Telephone [facility] [address], [address] [place] [address] Rosalinda Mendez Ud, MD [address] [place] [address] Social History Tobacco Use Types Packs/Day Years Used Date Smoking Tobacco: Former Cigarettes 1 20 0 03/30/1966 - 03/30/1986 Smokeless Tobacco: Never Alcohol Use Standard Drinks/Week Comments Yes 1 (1 standard drink = 0.6 oz pur e alcohol) rare AUDIT-C Answer Date Recorded Q1: How often do you have a drink containing alcohol? Never 03/24/2023 Q2: How many drinks containi ng alcohol do you have on a typical day when you are drinking? Patient does not drink Q3: How often do you have si x or more drinks on one occasion? Never 03/24/2023 PHQ-2 Answer Date Recorded PHQ-2 Total Score (If total score is 3 or more points, staff should administer the PHQ-9) 0 06/15/2023 Personal Safety Answer Date Recorded Getting School Help Needed Not on file 07/29 Sex and Gender Information Value Date Recorded Sex Assigned at Not on file Legal Sex Male 8:56 PM MENS LOCKER ROOM ATTENDANT Gender Identity Male 07/06/2024 6:10 PM MENS LOCKER ROOM ATTENDANT Sexual Orientation Not on file documented as of this encounter Plan of Treatment Not on file documented as of this encounter Visit Diagnoses Not on filedocumented in this encounter Additional Health Concerns Infection Onset Date Last Indicated Resolved Time COVID: Suspected 08/29/2024 08/29/2024 08/29/2024 5:16 PM MENS LOCKER ROOM ATTENDANT COVID19 08/29/2024 08/29/2024 09/08/2024 3:05 AM MENS LOCKER ROOM ATTENDANT COVID: Recovered Comment:Added based on recent COVID infection. 09/08/2024 09/08/2024 documented as of this encounter Care Teams Fashion Director Party Plan Sales Relationship Specialty Start Date End Date Neema Garay PA [address] [facility] [address] [place] [address] PCP - General Internal Medicine 12/24/20 Malachi Braden MD [address] [facility] [address] [address] Consulting Physician Cardiology 01/07/21 Ag Redding MD [address] [facility] [address] [place] [address] Consulting Physician Family Medicine 07/08/23 Kadi De La Garza MA [address] [facility] [address] [place] [address] ACO Care Fabrication Specialist 02/02/24 02/03/24 Rosalinda Bingham MD [address] [facility] [address] [place] [address] Consulting Physician Pulmonary Disease 04/08/24 Yissel Leonard MD [address] [place] [address] Referring Physician Internal Medicine 04/26/24 Kostas Martinez MD [address] [facility] [address] [address] Consulting Physician Cardiology 04/26/24 Trinity Maciel MA [address] [place] [address] [address] [place] [address] ACO Care Fabrication Specialist 05/16/24 05/16/24 Bradley Griffin MD [address] [facility] [address] [place] [address] Consulting Physician Physical Medicine and Rehabilitation 08/29/24 documented as of this encounter
--- OUTSIDE RECORDS SUMMARY | 2024-09-27 06:38 | XMS_ITS | Encounter Summary ---
Author Organization [facility] Facility Care Team Providers Care Director Of Supply Chain Name Role Phone Justice Ortega MD Primary Care Provider + [phone] Neema Garay Primary Care Provider +- [phone] Malachi Braden MD Unavailable [phone] Ag Redding MD Unavailable [phone] Kadi De La Garza MA Unavailable Rosalinda Bingham MD Unavailable Yissel Leonard MD Unavailable [phone] Kostas Martinez MD Unavailable [phone] Trinity Maciel MA Unavailable Unavailable Bradley Griffin MD Unavailable [phone] Encounter Details Date Type Department Care Team (Latest Contact Info) Description 05/28/2016 Orders Only [facility] Provider, MD Ella [address] [place] [id number] Social History Tobacco Use Types Packs/Day Years Used Date Smoking Tobacco: Never Assessed Sex and Gender Information Value Date Recorded Sex Assigned at Not on file Legal Sex Male 8:56 PM 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 us Historical Provider Final Res ult documented in this encounter Visit Diagnoses Not on filedocumented in this encounter Additional Health Concerns Infection Onset Date Last Indicated Resolved Time COVID19 09/21/2021 09/21/2021 10/01/2021 3:05 AM SLEEP TECHNICIAN COVID: Recovered Comment:Added based on recent COVID infection. 10/01/2021 10/01/2021 01/29/2022 3:05 AM C DT COVID: Suspected 08/29/2024 08/29/2024 08/29/2024 5:16 PM SLEEP TECHNICIAN COVID19 08/29/2024 08/29/2024 09/08/2024 3:05 AM SLEEP TECHNICIAN COVID: Recovered Comment:Added based on recent COVID infection. 09/08/2024 09/08/2024 documented as of this encounter Care Teams Director Of Supply Chain Relationship Specialty Start Date End Date Justice Ortega MD [address] [place] [id number] PCP - General 02/05/17 12/23/20 Neema Garay PA [address] [facility] [address] [place] [address] PCP - General Internal Medicine 12/24/20 Malachi Braden MD [address] [facility] [address] [address] Consulting Physician Cardiology 01/07/21 Ag Redding MD [address] [facility] [address] [place] [address] Consulting Physician Family Medicine 07/08/23 Kadi De La Garza MA [address] [facility] [address] [place] [address] ACO Care Supervisor [employer] 02/02/24 02/03/24 Rosalinda Bingham MD [address] [facility] [address] [place] [address] Consulting Physician Pulmonary Disease 04/08/24 Yissel Leonard MD [address] [place] [address] Referring Physician Internal Medicine 04/26/24 Kostas Martinez MD [address] [facility] [address] [place] [address] Consulting Physician Cardiology 04/26/24 Trinity Maciel MA [address] [facility] [address] [place] [address] ACO Care Supervisor [employer] 05/16/24 05/16/24 Bradley Griffin MD [address] [facility] [address] [place] [address] Consulting Physician Physical Medicine and Rehabilitation 08/29/24 documented as of this encounter
--- OUTSIDE RECORDS SUMMARY | 2024-09-27 06:38 | XMS_ITS | Clinical Summary ---
Author Organization [facility], formerly 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 Was told by prescribing MD not to take after reaction reported. Medications ckufyphp-[id number]-CX-l ycopen-lutein 0.4-300-250 mg-mcg-mcg tablet Rx: Multivitamin Adults 50+ - Tablet take 1 tab in AM Active Sure Comfort Pen Needle 31 gauge x 5/16 needle 02/27/20 22 Active FreeStyle Precision Kevin Strips strip as directed 12/30/19 23 Active FreeStyle [place] Lite kit 05/15/20 23 Active folic acid (FOLVITE) 400 mcg tablet Take 2.5 tablets (1 mg total) by mouth waterproofer before breakfast 90 tablet 1 11/04/19 24 Active polyethylene glycol (MIRALAX) 17 gram packet Take 1 packet (17 g total) by mouth daily 30 packet 1 11/04/19 24 Active psyllium husk, aspartame, 3.4 gram/5.8 gram powderIndications :Chronic idiopathic constipation Mix 6gm powder into at least 8 oz cool water. Mix well until dissolved. Drink daily. 660 g 1 01/26/20 24 Active metFORMIN XR (GLUCOPHAGE XR) 500 mg 24 hr tablet Take 1 tablet (500 mg total) by mouth 2 (two) times a day 04/07/20 24 Active flash glucose sensor (FREESTYLE ABHIJEET 14 [facility] [place] Active latanoprost (XALATAN) 0.005 % ophthalmic solution 05/13/20 24 Active isosorbide mononitrate ER (IMDUR) 30 mg 24 hr tabletIndications :prevention of anginal pain in coronary artery disease Take 1 tablet (30 mg total) by mouth waterproofer before breakfast 90 tablet 1 05/25/20 24 Active montelukast (SINGULAIR) 10 mg tablet Take 1 tablet (10 mg total) by mouth nightly 90 tablet 1 05/25/20 24 Active amLODIPine (NORVASC) 5 mg tablet Take 1 tablet (5 mg total) by mouth daily 90 tablet 1 05/25/20 24 Active finasteride (PROSCAR) 5 mg tablet Take 1 tablet (5 mg total) by mouth waterproofer before breakfast 90 tablet 1 05/25/20 24 Active insulin glargine 100 unit/mL (3 mL) pen for injectionIndicati ons:Type 2 diabetes mellitus with hyperlipidemia (HCC) Inject 28 Units under the skin daily 24 mL 1 06/01/20 24 Active acetaminophen (TYLENOL) 500 mg tablet Take 1 tablet (500 mg total) by mouth every 6 (six) hours as needed for pain Active pantoprazole DR (PROTONIX) 40 mg EC tablet Take 1 tablet (40 mg total) by mouth waterproofer before breakfast 90 tablet 1 08/08/20 24 Active losartan-hydrochl orothiazide (HYZAAR) 100-25 mg per tablet Take 1 tablet by mouth daily 90 tablet 1 08/08/20 24 Active atorvastatin (LIPITOR) 20 mg tablet Take 2 tablets (40 mg total) by mouth daily 180 tablet 3 08/08/20 24 Active apixaban (Eliquis) 5 mg tablet Take 1 tablet (5 mg total) by mouth 2 (two) times a day May resume post procedurally 48*72 hrs after if urine is clear 180 tablet 1 08/08/20 24 Active albuterol HFA (PROVENTIL HFA,VENTOLIN HFA,PROAIR HFA) 90 mcg/actuation inhalerIndication s:SOB (shortness of breath) Inhale 2 puffs every 6 (six) hours as needed for wheezing 1 each 09/01/19 25 Active benzonatate (TESSALON) 100 mg capsuleIndication s:Cough Take 1 capsule (100 mg total) by mouth 3 (three) times a day as needed for cough 42 capsule 09/01/19 25 Active furosemide (LASIX) 40 mg tabletIndications :Chronic congestive heart failure, unspecified heart failure type (HCC) Take 1 tablet (40 mg total) by mouth daily 90 tablet 09/05/19 25 Active Trulicity 4.5 mg/0.5 mL pen injector 09/14/19 25 Active pregabalin (LYRICA) 75 mg capsule Take 1 capsule (75 mg total) by mouth 2 (two) times a day 60 capsule 2 09/20/19 25 Active Additional Information Patient not taking.Reported on 09/26/2024 albuterol HFA (PROVENTIL HFA,VENTOLIN HFA,PROAIR HFA) 90 mcg/actuation inhaler Inhale 2 puffs every 6 (six) hours as needed for wheezing 1 each 11/04/19 24 025 Discontinu ed(Reorder ) Trulicity 1.5 mg/0.5 mL pen injector Inject 0.5 mL (1.5 mg total) under the skin once a week Thursday 6 mL 08/15/20 24 025 Discontinu ed(Patient Reported) furosemide (LASIX) 40 mg tablet Take 1 tablet (40 mg total) by mouth daily 90 tablet 08/15/20 24 025 Discontinu ed(Reorder ) amoxicillin-clavu lanate (AUGMENTIN) 875-125 mg per tabletIndications :Pneumonia due to infectious organism, unspecified laterality, unspecified part of lung Take 1 tablet by mouth 2 (two) times a day for 10 days 20 tablet 09/05/19 25 025 Active Problems Problem Noted Date Diagnosed Date Acute cough 08/30/2024 Assessment & Plan (08/30/2024 4:09 PM GLOBAL EXPANSION SALES DIRECTOR): Patient is COVID positive today COVID 08/30/2024 Assessment & Plan (08/30/2024 4:07 PM GLOBAL EXPANSION SALES DIRECTOR): Let pt know the newest CDC recommendations are as follows: COVID: Isolate until fever free for 24 hours without the use of fever-reducing medications. Once patient starts to feel better, use enhanced hygiene practices, wash hands and avoid being around people who are at high risk Discuss Paxlovid, but he is out of the to use as he is at least on day 7 of symptoms, including risks, benefits, alternatives, side effects and proper use. Treat sxs with Tylenol, Cough/cold medication otc and add VitD 5,000IU daily and Zinc 50mg daily. He has tessalon perles at home so declines a new rx. Monitor sxs and call or go to the ER if has any of the following: --trouble breathing --persistent pain or pressure in the chest --new confusion --inability to wake or stay awake -- bluish lips or face Bilateral leg edema 08/30/2024 Assessment & Plan (08/30/2024 4:09 PM GLOBAL EXPANSION SALES DIRECTOR): Patient has bilateral lower leg edema with known congestive heart failure history. It sounds like he is having more difficulty laying down. He has been working with his animal attendant who is already doubled his Lasix. Advised his shortness of breath may be more related to his CHF then COVID. Encouraged him to decrease his salt intake. Increase fluids and elevate legs and use compression stockings. He states he does not use compression stockings closer to uncomfortable. Will continue to monitor closely. Because he states he thinks he is feeling better than he did the day before will monitor. Encouraged daily weights in the morning without clothes and record on paper so that we can follow them. If he gains more than 3-5 lb in just a couple of days he is to call immediately. If he has increased shortness of breath or is O2 saturation decreases below 90 then he is also to go ahead and go to the ER for immediate evaluation. It is after 5:00 p.m. on a Thursday night so will be more difficult to get him outpatient labs and chest x-ray. Will check on him in the morning and if his symptoms persist would benefit from a chest x-ray and BNP and CMP patient and both agree on the plan. In regards to the leg pain it may be related to the increased edema but once he is feeling better encouraged him to follow up with Dr. Griffin as he may benefit from these injections as discussed in 2022 NSVT (nonsustained ventricular tachycardia) 06/17 Gross hematuria 07/01/2024 Atrial fibrillation with slo w ventricular response (CMS/HCC) 07/01/2024 Flu vaccine need 06/04/2024 Assessment & Plan (06/04/2024 10:04 PM CDT): Flu vaccine updated today in the office Malignant neoplasm of urinary bladder 05/16/2024 Assessment & Plan (06/04/2024 10:04 PM CDT): Recent diagnosis of bladder cancer. Continue per Dr. Armas at [facility] current use of anticoagulant Assessment & Plan (06/04/2024 10:04 PM CDT): Continue with Daniel for anticoagulation for his AFib BMI 27.0-27.9,adult 04/06/2024 Assessment & Plan (08/30/2024 4:09 PM GLOBAL EXPANSION SALES DIRECTOR): Weight/BMI is in healthy range. Continue healthy lifestyle to maintain. Assessment & Plan (06/04/2024 10:04 PM CDT): Weight/BMI is in healthy range. Continue healthy lifestyle to maintain. Assessment & Plan (04/17/2024 10:32 PM CDT): Weight/BMI is in healthy range. Continue healthy lifestyle to maintain. Medicare annual wellness visit, subsequent 06/28 Assessment & Plan (06/04/2024 10:04 PM CDT): Encouraged healthy lifestyle, good nutrition and exercise. Encouraged Calcium and Vitamin D and weight bearing exercise for bone health. Reviewed immunizations. Reviewed age appropirate screenings. Medicare Wellness Documentation is completed within the chart Assessment & Plan (01/11/2024 2:55 PM CDT): Encouraged healthy lifestyle, good nutrition and exercise. Encouraged Calcium and Vitamin D and weight bearing exercise for bone health. Reviewed immunizations. Reviewed age appropirate screenings. Medicare Wellness Documentation is completed within the chart Actinic keratosis 05/04/2023 Age-related hearing loss 05/04/2023 Pulmonary fibrosis (CMS/HCC) 02/26/2023 Assessment & Plan (06/28/2023 8:17 PM GLOBAL EXPANSION SALES DIRECTOR): Continue per pulmonology Dr. Allen Chronic bilateral low back pain with right-sided sciatica 09/13/2022 Assessment & Plan (09/13/2022 7:53 PM GLOBAL EXPANSION SALES DIRECTOR): Patient has chronic back pain with pain radiating into the legs. Status post lumbar back surgery with hardware in the past. Had ABIs that essentially were negative so did not support claudication arterially. Need to consider UTI verses lumbar hardware breakdown versus other etiology beyond just the radicular pain. Will start with a urine culture. Will start with x-rays of the spine to confirm hardware placement. Follow-up on these results. If he would lose control of bowel or bladder different than what he chronically experiences he needs to immediately go to the ER. He verbalizes understanding. Claudication 08/24/2022 Assessment & Plan (08/24/2022 9:30 PM GLOBAL EXPANSION SALES DIRECTOR): Patient is complaining about leg pain bilaterally. The pain increases when legs hit the floor and then limit his ability to walk distances. 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 Will check arterial vascular studies and follow-up pending those results. Order was provided to patient for him to schedule at his convenience. Congestive heart failure (CMS/HCC) 12/29/2021 Assessment & Plan (08/30/2024 4:09 PM GLOBAL EXPANSION SALES DIRECTOR): Patient has bilateral lower leg edema with known congestive heart failure history. It sounds like he is having more difficulty laying down. He has been working with his animal attendant who is already doubled his Lasix. Advised his shortness of breath may be more related to his CHF then COVID. Encouraged him to decrease his salt intake. Increase fluids and elevate legs and use compression stockings. He states he does not use compression stockings closer to uncomfortable. Will continue to monitor closely. Because he states he thinks he is feeling better than he did the day before will monitor. Encouraged daily weights in the morning without clothes and record on paper so that we can follow them. If he gains more than 3-5 lb in just a couple of days he is to call immediately. If he has increased shortness of breath or is O2 saturation decreases below 90 then he is also to go ahead and go to the ER for immediate evaluation. It is after 5:00 p.m. on a Thursday night so will be more difficult to get him outpatient labs and chest x-ray. Will check on him in the morning and if his symptoms persist would benefit from a chest x-ray and BNP and CMP patient and both agree on the plan. In regards to the leg pain it may be related to the increased edema but once he is feeling better encouraged him to follow up with Dr. Griffin as he may benefit from these injections as discussed in 2022 Assessment & Plan (01/11/2024 2:54 PM CDT): Patient appears compensated today. Continue per Cardiology. Continue to monitor for lower extremity edema, increased shortness of breath, difficulty laying down etc.. If this would occur he is to reach out to us or Cardiology immediately for assistance Assessment & Plan (06/28/2023 8:25 PM GLOBAL EXPANSION SALES DIRECTOR): Recent hospitalization for CHF. Strongly encouraged him to get in with Dr. Braden this sooner than later. He has follow-up in August but I still think he would benefit from seeing him sooner. He states he has all of the medications that were sent home with discharge any feels as though he is fairly well compensated currently. Assessment & Plan (12/28/2022 7:51 PM CDT): Continue per Cardiology. Appears compensated today. Continue with Lasix Assessment & Plan (08/24/2022 9:28 PM GLOBAL EXPANSION SALES DIRECTOR): Continue per Cardiology. Assessment & Plan (06/01/2022 8:52 PM CDT): Continue per Cardiology Assessment & Plan (12/29/2021 5:00 PM CDT): Patient requests refills of his Lasix. Will provide but encouraged to continue to follow with Cardiology as instructed Atrial fibrillation ([facility] 09/09/2021 Assessment & Plan (06/04/2024 10:04 PM CDT): Cardio - Sampson and Juan Patient is on Eliquis, losartan hydrochlorothiazide, isosorbide amlodipine Lasix and pantoprazole Assessment & Plan (04/17/2024 10:30 PM CDT): Continue per Cardiology and EP Dr. Martinez. Has an appointment on 04/26. Has the 72 hour monitor on currently. Was restarted on the Eliquis. His metoprolol is being held due to low pulse. Encouraged him to follow-up with Dr. Martinez if there are any problems between now and his appointment. Assessment & Plan (01/11/2024 2:53 PM CDT): Managed by Dr. Braden. Continue Eliquis for anticoagulation. Assessment & Plan (06/28/2023 8:15 PM GLOBAL EXPANSION SALES DIRECTOR): Continue per Dr. Braden Patient has CHF AFib CAD history hypertension hyperlipidemia and pulmonary hypertension. He is on Eliquis 5 mg b.i.d. for anticoagulation with his AFib. Tolerating his losartan hydrochlorothiazide 100/25, isosorbide ER 30 daily, metoprolol 25 b.i.d., amlodipine 5 and Lasix 40 Assessment & Plan (10/10/2021 9:46 PM GLOBAL EXPANSION SALES DIRECTOR): Continue per Cardio Assessment & Plan (09/18/2021 7:33 PM GLOBAL EXPANSION SALES DIRECTOR): Continue per Cardiology patient is on Eliquis Bilateral carotid artery stenosis 08/07/2021 Assessment & Plan (06/02/2023 3:09 PM CDT): Status post left CEA. Right ICA with stable moderate 50-69% stenosis. Continue risk factor modification with ASA, statin therapy in good blood pressure control. Follow-up in 6 months with repeat carotid duplex. Assessment & Plan (10/01/2022 4:35 PM GLOBAL EXPANSION SALES DIRECTOR): Impression: Patient has patent left internal carotid artery and mild right internal carotid artery stenosis. Patient remains asymptomatic. Plan: Continue ongoing risk factor modifications. Continue Eliquis. Follow-up in 6 months for re-evaluation with repeat carotid duplex. Assessment & Plan (04/15/2022 11:51 AM CDT): Widely patent left ICA status post endarterectomy 10/01/2021. Right ICA remains moderately stenosis 50-79%. There is no new symptoms of stroke such as slurred speech or amaurosis fugax. Patient is to return in 6 months for carotid duplex. Assessment & Plan (09/18/2021 7:38 PM GLOBAL EXPANSION SALES DIRECTOR): Left carotid endarterectomy is planned with Dr. dawkins. Assessment & Plan (08/12/2021 3:05 PM GLOBAL EXPANSION SALES DIRECTOR): Assessment: Symptomatic left high-grade stenosis. Plan: Based off his CT I have recommended carotid endarterectomy over TCAR. Risks benefits alternatives were discussed with the patient, risks included bleeding, infection, nerve injury, stroke and need for further surgery. He wished to proceed Assessment & Plan (08/07/2021 9:49 AM GLOBAL EXPANSION SALES DIRECTOR): Assessment/plan: I had a long discussion with the patient regarding indications for carotid intervention, in his case it would be symptomatic high-grade left internal carotid artery stenosis. He also has moderate to high-grade stenosis of his distal right internal carotid artery. Continue risk factor modification with ASA and statin therapy. I have ordered a CT a head and neck for further evaluation pending this he will likely need a left carotid endarterectomy vs TCAR. He will follow-up in the office early next week. Retinal artery occlusion 07/18/2021 Assessment & Plan (09/18/2021 7:58 PM GLOBAL EXPANSION SALES DIRECTOR): Discussed with patient the pathophys behind the retinal artery occlusion. Reviewed possible causes and need for additional workup. EKG in the office showed Aflutter. This was a new finding. Consider Carotid dopplers, MRA brain. ECHO last done 12/[address] Braden. Discussed with Dr. Braden and will start AC due to increased stroke risk. Patient has followup with Dr. Braden in a few weeks. bp well controlled. Will also check sed rate and CRP. Reviewed risks, benefit, alternatives, side effects and proper use. Will send Eliquis 5mg (he is over 80 but renal function is stable and he is over 60kg so will keep 5mg bid dosing) Discussed referral to Ophthamology at [facility] -- Will first work on Cardio evaluation due to timing. EKG done 07/18/2022 53 bpm A Flutter with variable AV block with premature aberrantly conducted complexes LBBB Neck pain 02/16/2021 Assessment & Plan (02/16/2021 10:49 PM CDT): EncouragedTylenol. Topical preparations like Lidocaine patches, Biofreeze, ICYHOT etc as needed. Heat, stretching Encouraged PT. Gait instability 02/16/2021 Assessment & Plan (06/04/2024 10:01 PM CDT): Patient continues to have gait instability and fall risk. Encouraged physical therapy which she declines at this point. 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 Patient is on Eliquis for AFib so not on an aspirin. He is on a statin Assessment & Plan (09/18/2021 7:33 PM GLOBAL EXPANSION SALES DIRECTOR): Continue per Cardiology. He is on a beta-peggy nitrate and aspirin Assessment & Plan (05/13/2021 11:09 PM CDT): Continue per cardio On ASA, statin, isosorbide and BB Assessment & Plan (01/10/2021 9:00 PM CDT): Continue per cardio. ON ASA, statin and BB and nitrate Self-catheterizes urinary bladder 10/31/2020 Assessment & Plan (01/10/2021 9:00 PM CDT): Continue per Urology. Has needed supplies Benign prostatic hyperplasia with incomplete bladder emptying 10/31/2020 Assessment & Plan (09/18/2021 7:33 PM GLOBAL EXPANSION SALES DIRECTOR): Continue per Urology. Continue Proscar Assessment & Plan (01/10/2021 9:02 PM CDT): Continue per Urology. On finasteride At risk for venous thromboembolism (VTE) 019 Overview (09/19/2019): Problem added by Discern Expert High risk medication use 05/02/2019 Assessment & Plan (05/02/2019 10:38 AM CDT): Monitoring insulins, which could cause serious hypoglycemia. Type 2 diabetes mellitus, wi th long-term current use of insulin 04/29/2019 Assessment & Plan (06/04/2024 10:00 PM CDT): Diabetes is managed by [facility] Dr. Ram Assessment & Plan (06/01/2022 8:50 PM CDT): Stressed importance of continued A1c control to minimize the termite inspector effects of diabetes. Bring accuchecks to office when instructed to do so. Check A1c about every 3-6 months. Take medication as prescribed. Get annual eye exam. Encouraged LATANYA/Statin if able to tolerate. Encouraged weight control and encouraged diabetic diet and exercise. Managed by endocrinology at [facility] Assessment & Plan (09/18/2021 7:32 PM GLOBAL EXPANSION SALES DIRECTOR): Stressed importance of continued A1c control to minimize the nursing home effects of diabetes. Bring accuchecks to office when instructed to do so. Check A1c about every 3-6 months. Take medication as prescribed. Get annual eye exam. Encouraged LATANYA/Statin if able to tolerate. Encouraged weight control and encouraged diabetic diet and exercise. Continue per Endocrinology at [facility] Assessment & Plan (05/13/2021 11:10 PM CDT): Stressed importance of continued A1c control to minimize the termite inspector effects of diabetes. Bring accuchecks to office when instructed to do so. Check A1c about every 3-6 months. Take medication as prescribed. Get annual eye exam. Encouraged LATANYA/Statin if able to tolerate. Encouraged weight control and encouraged diabetic diet and exercise. Continue per Endo. He may consider a change of provider as having difficulty getting supplies. Discussed Kathy Caceres NP in [place] as an option. He will consider. Assessment & Plan (01/10/2021 9:02 PM CDT): Stressed importance of continued A1c control to minimize the nursing home effects of diabetes. Bring accuchecks to office when instructed to do so. Check A1c about every 3-6 months. Take medication as prescribed. Get annual eye exam. Encouraged LATANYA/Statin if able to tolerate. Encouraged weight control and encouraged diabetic diet and exercise. Managed by Endo. Assessment & Plan (05/02/2019 10:38 AM CDT): Glucoses within a good margin of safety. Recommendations: - continue Lantus 30U QHS - continue Humalog 12U TIDmeals - MDSSI TIDACandHS - poc glucose checks TIDACandHS -If patient is eating snacks please add snacktime lispro PRN, 3 units Assessment & Plan (04/30/2019 5:21 PM CDT): Type 2 diabetes c/b neuropathy. A1C 6.8%. Home regimen is Janumet and Humalog 70/25 kwikpen - 55U QAM/50U QPM. He underwent elective T10-L3 revision fusion, T11/12 laminectomy and discectomy. Since surgery, BG have been in 180s-220s, then up to 330 this afternoon. However, he has only been receiving spot doses of regular insulin and lispro. He has not received any doses of long acting insulin. Home dose is TDD 105 which is 1U/kg daily dose. We will start basal bolus regimen at 0.5U/kg for TDD and continue to uptitrate as needed. He is eating his meals, reports good appetite. Recommendations: - Increase to Lantus 30U QHS - Increase to Humalog 10U TIDmeals - MDSSI TIDACandHS - poc glucose checks TIDACandHS -If patient is eating snacks please add snacktime lispro PRN, 3 units Assessment & Plan (04/29/2019 4:18 PM CDT): Type 2 diabetes c/b neuropathy. A1C 6.8%. Home regimen is Janumet and Humalog 70/25 kwikpen - 55U QAM/50U QPM. He underwent elective T10-L3 revision fusion, T11/12 laminectomy and discectomy. Since surgery, BG have been in 180s-220s, then up to 330 this afternoon. However, he has only been receiving spot doses of regular insulin and lispro. He has not received any doses of long acting insulin. Home dose is TDD 105 which is 1U/kg daily dose. We will start basal bolus regimen at 0.5U/kg for TDD and continue to uptitrate as needed. He is eating his meals, reports good appetite. Recommendations: - Lantus 25U QHS - Humalog 8U TIDmeals - MDSSI TIDACandHS - poc glucose checks TIDACandHS Herniated nucleus pulposus with myelopathy, thor acic 04/25/2019 Overview (04/25/2019): Added automatically from request for surgery [id number] HNP (herniated nucleus pulposus with myelopathy) , thoracic 02/11/2019 Overview (02/11/2019): Added automatically from request for surgery [id number] Abnormal stress test 03/05/2018 Overview (02/06/2019): Stress test done on 02/26/2018 showed an infarction involving the anteroapical lateral apical inferoapical extending into the Exit with johanne-infarct ischemia. Calculated ejection fraction is 65%. History of coronary artery stent placement 07/15 Overview (09/19/2019): Patient had a stent in the right coronary artery and also in the ramus intermedius. These stents were patent by cath in 2012 History of back surgery 07/08/2016 Assessment & Plan (04/12/2022 7:52 PM CDT): No change History of CVA (cerebrovascular accident) 2015 Overview (02/06/2019): Treated with thrombolytics and has no residual effects of CVA. In February 2017 had a TIA symptoms with the numbness in his left hand which resolved. Assessment & Plan (07/28/2021 10:18 AM GLOBAL EXPANSION SALES DIRECTOR): History of CVAs in the past. Has not been on thrombolytics as has been essentially symptom-free. 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 A flutter was confirmed in the office. Assessment & Plan (01/10/2021 9:00 PM CDT): On ASA and statin. Bp stable Type 2 diabetes mellitus with hyperlipidemia Assessment & Plan (06/04/2024 9:59 PM CDT): Stressed importance of continued A1c control to minimize the termite inspector effects of diabetes. Bring accuchecks to office when instructed to do so. Check A1c about every 3-6 months. Take medication as prescribed. Get annual eye exam. Encouraged LATANYA/Statin if able to tolerate. Encouraged weight control and encouraged diabetic diet and exercise. Encouraged patient to follow low fat/low chol diet like the Mediterranean diet. Increase good fats in the diet. Increase exercise. Monitor labs as needed. Continue atorvastatin 20 Diabetes is managed by [facility] Dr. Ram Assessment & Plan (04/17/2024 10:30 PM CDT): Stressed importance of continued A1c control to minimize the termite inspector effects of diabetes. Bring accuchecks to office when instructed to do so. Check A1c about every 3-6 months. Take medication as prescribed. Get annual eye exam. Encouraged LATANYA/Statin if able to tolerate. Encouraged weight control and encouraged diabetic diet and exercise. Encouraged patient to follow low fat/low chol diet like the Mediterranean diet. Increase good fats in the diet. Increase exercise. Monitor labs as needed. Continue Trulicity 1.5 mg and restart the metformin tomorrow. Continue atorvastatin 20 Assessment & Plan (01/11/2024 2:53 PM CDT): Encouraged patient to follow low fat/low chol diet like the Mediterranean diet. Increase good fats in the diet. Increase exercise. Monitor labs as needed. Continue atorvastatin 20 Assessment & Plan (12/04/2023 12:53 PM CDT): Impression: Chronic and stable. Plan: Atorvastatin. Assessment & Plan (06/28/2023 8:16 PM GLOBAL EXP[employer]ION SALES DIRECTOR): Encouraged patient to follow low fat/low chol diet like the Mediterranean diet. Increase good fats in the diet. Increase exercise. Monitor labs as needed. Continue atorvastatin 20 Assessment & Plan (06/02/2023 3:10 PM CDT): Stable continue Lipitor and metformin. Assessment & Plan (10/01/2022 4:37 PM GLOBAL EXP[employer]ION SALES DIRECTOR): Impression: Chronic diabetes mellitus with good glucose control. Plan: Continue insulin Assessment & Plan (06/01/2022 8:51 PM CDT): Stressed importance of continued A1c control to minimize the termite inspector effects of diabetes. Bring accuchecks to office when instructed to do so. Check A1c about every 3-6 months. Take medication as prescribed. Get annual eye exam. Encouraged LATANYA/Statin if able to tolerate. Encouraged weight control and encouraged diabetic diet and exercise. Managed by the endocrinology group [facility]. Encouraged patient to follow low fat/low chol diet like the Mediterranean diet. Increase good fats in the diet. Increase exercise. Monitor labs as needed. Continue atorvastatin Assessment & Plan (04/12/2022 7:55 PM CDT): Stressed importance of continued A1c control to minimize the nursing home effects of diabetes. Bring accuchecks to office when instructed to do so. Check A1c about every 3-6 months. Take medication as prescribed. Get annual eye exam. Encouraged LATANYA/Statin if able to tolerate. Encouraged weight control and encouraged diabetic diet and exercise. Encouraged patient to follow low fat/low chol diet like the Mediterranean diet. Increase good fats in the diet. Increase exercise. Monitor labs as needed. Patient have a difficulty cutting his atorvastatin half. Prefers to have a 20 mg tablet. This will be sent. Assessment & Plan (12/29/2021 4:59 PM CDT): Encouraged patient to follow low fat/low chol diet like the Mediterranean diet. Increase good fats in the diet. Increase exercise. Monitor labs as needed. Continue Lipitor Assessment & Plan (09/18/2021 7:31 PM GLOBAL EXP[employer]ION SALES DIRECTOR): Encouraged patient to follow fat/low chol diet like the Mediterranean diet. Increase good fats in the diet. Increase exercise. Monitor labs as needed. Continue statin Assessment & Plan (05/13/2021 11:10 PM CDT): Encouraged patient to follow fat/low chol diet like the Mediterranean diet. Increase good fats in the diet. Increase exercise. Monitor labs as needed. Continue statin Assessment & Plan (01/10/2021 9:02 PM CDT): Encouraged patient to follow fat/low chol diet like the Mediterranean diet. Increase good fats in the diet. Increase exercise. Monitor labs as needed. Continue statin Assessment & Plan (04/30/2019 5:19 PM CDT): On atorvastatin. Continue as per primary team Assessment & Plan (04/29/2019 4:19 PM CDT): On atorvastatin. Continue as per primary team. Hypertension associated with diabetes 07/08/2016 Assessment & Plan (06/04/2024 10:00 PM CDT): Bp is stable/in acceptable range for any co-morbidities. Encouraged to limit sodium intake and exercise for weight control. Continue per Dr. Braden and Dr. Martinez Assessment & Plan (01/11/2024 2:53 PM CDT): Bp is stable/in acceptable range for any co-morbidities. Encouraged to limit sodium intake and exercise for weight control. Stressed importance of continued A1c control to minimize the termite inspector effects of diabetes. Bring accuchecks to office when instructed to do so. Check A1c about every 3-6 months. Take medication as prescribed. Get annual eye exam. Encouraged LATANYA/Statin if able to tolerate. Encouraged weight control and encouraged diabetic diet and exercise. Endocrinology and [place] manages his diabetes. Continue losartan hydrochlorothiazide 100/25, isosorbide XR 30, amlodipine 5 and Lasix 20 Assessment & Plan (12/04/2023 12:54 PM CDT): Impression: Chronic and stable. Plan: Continue amlodipin, Hyzaar, isosorbide Assessment & Plan (06/28/2023 8:16 PM GLOBAL EXPANSION SALES DIRECTOR): Bp is stable/in acceptable range for any co-morbidities. Encouraged to limit sodium intake and exercise for weight control. Stressed importance of continued A1c control to minimize the nursing home effects of diabetes. Bring accuchecks to office when instructed to do so. Check A1c about every 3-6 months. Take medication as prescribed. Get annual eye exam. Encouraged LATANYA/Statin if able to tolerate. Encouraged weight control and encouraged diabetic diet and exercise. Dr. Braden manages HTN Endo at [place] manages his DM Assessment & Plan (06/02/2023 3:11 PM CDT): Stable continue amlodipine 5 mg. Assessment & Plan (12/28/2022 7:50 PM CDT): Bp is stable/in acceptable range for any co-morbidities. Encouraged to limit sodium intake and exercise for weight control. Continue losartan hydrochlorothiazide, metoprolol and amlodipine Assessment & Plan (10/01/2022 4:36 PM GLOBAL EXP[employer]ION SALES DIRECTOR): Impression: Chronic hypertension. Plan: Continue Norvasc, Imdur, metoprolol, Hyzaar Assessment & Plan (08/24/2022 9:27 PM GLOBAL EXPANSION SALES DIRECTOR): Bp is stable/in acceptable range for any co-morbidities. Encouraged to limit sodium intake and exercise for weight control. Stressed importance of continued A1c control to minimize the termite inspector effects of diabetes. Bring accuchecks to office when instructed to do so. Check A1c about every 3-6 months. Take medication as prescribed. Get annual eye exam. Encouraged LATANYA/Statin if able to tolerate. Encouraged weight control and encouraged diabetic diet and exercise. Continue per Endocrinology and per Cardiology with current medication regimens Assessment & Plan (12/29/2021 5:00 PM CDT): Bp is stable/in acceptable range for any co-morbidities. Encouraged to limit sodium intake and exercise for weight control. Continue losartan hydrochlorothiazide, metoprolol amlodipine, Lasix, Imdur Continue per Cardiology as instructed Assessment & Plan (09/18/2021 7:31 PM GLOBAL EXPANSION SALES DIRECTOR): Bp is stable/in acceptable range for any co-morbidities. Encouraged to limit sodium intake and exercise for weight control. Continue current regimen per Cardiology Assessment & Plan (05/13/2021 11:09 PM CDT): Bp is stable/in acceptable range for any co-morbidities. Encouraged to limit sodium intake and exercise for weight control. Continue current regimen per cardio Assessment & Plan (01/10/2021 9:01 PM CDT): Bp is stable/in acceptable range for any co-morbidities. Encouraged to limit sodium intake and exercise for weight control. Continue amlodipine, lasix, isosorbide, losartan/HCTZ and metoprolol Assessment & Plan (04/30/2019 5:20 PM CDT): On metoprolol. Continue as per primary team Assessment & Plan (04/29/2019 4:20 PM CDT): On metoprolol. Continue as per primary team. S/P CABG x 4 07/08/2016 Overview (02/06/2019): Patient had bypass surgery in 2001. Last cath done in 2012 showed a severe three-vessel coronary artery disease. Left intramammary artery to the left anterior descending is patent Vein graft to the marginal is patent Vein graft to the right coronary leni Abnormal EKG 07/08/2016 Fracture of lumbar vertebra 07/24/2015 Paresis of single lower extremity (CMS/HCC) 08/18 Obstructive sleep apnea syndrome 09/07/2014 Osteoarthritis of lumbar spine 08/15/2014 Assessment & Plan (04/12/2022 7:53 PM CDT): Patient has known osteoarthritis of the spine along with history of surgery. Will go ahead and start some physical therapy. Encouraged topicals to the back as he is on anticoagulation and unable to use an anti-inflammatory. May also use lidocaine patches and/or Tylenol as needed. Will await vascular workup for possible claudication and if this does not see reveal cause may need to further evaluate his lumbar spine. Spinal stenosis of lumbar region 08/15/2014 Assessment & Plan (06/28/2023 8:27 PM GLOBAL EXP[employer]ION SALES DIRECTOR): Patient with MRI showing multiple changes. Spinal stenosis after history of 2 surgeries. There is a fluid collection. In February recommended he see neurosurgery. Was referred but he was unable to keep this appointment. He prefers now a referral to neurosurgery at [facility]. Appointment placed will await recommendations. Will go ahead and make a referral for pain management so he is in the waiting process as may end up needing neurosurgery and pain management simultaneously. Assessment & Plan (12/28/2022 7:49 PM CDT): History of spinal stenosis. Increased symptoms in the legs and pain with walking. Recommend checking MRI lumbar spine. Have ruled out vascular claudication and symptoms have been persistent Ankle swelling 08/15/2014 Difficulty in urination 08/15/2014 Heartburn 08/15/2014 Urinary catheter present 08/15/2014 Deep vein thrombosis (DVT) (CMS/HCC) 08/07/2014 Gastric reflux Assessment & Plan (09/18/2021 7:33 PM GLOBAL EXPANSION SALES DIRECTOR): Continue omeprazole Resolved Problems Problem Noted Date Diagnosed Date Resolved Date Bladder tumor 04/05/2024 06/04/2024 Assessment & Plan (04/17/2024 10:31 PM CDT): Patient with a new diagnosis of bladder tumor. Following with Dr. Armas. He will probably need a resection in the next few weeks. Will await recommendations Gross hematuria 04/03/2024 06/04/2024 Burn from the sun 02/14/2024 06/04/2024 Assessment & Plan (02/14/2024 10:01 PM CDT): His rash appears to be sun exposure. The straight line would be accounted for by his shorts and it looks as though he had a sunburn but no blistering. Encouraged to apply aloe or other moisturizing agent to the area may apply cool ice packs as desired. If symptoms worsen he is to follow up immediately. Reminded him of the importance of sunscreen Dysuria 01/11/2024 06/04/2024 Assessment & Plan (02/14/2024 10:01 PM CDT): Patient notes blood when catheterizing. Will send urine for culture and sensitivity. Continue to push fluids Assessment & Plan (01/11/2024 2:55 PM CDT): Patient notes increased dysuria. He also noticed a little blood although he does catheterization. Dip did seem consistent with urine infection so will start Bactrim DS. Send urine for culture await sensitivity BMI 25.0-25.9,adult 06/28/2023 08/21/20 24 Assessment & Plan (02/14/2024 10:01 PM CDT): Weight/BMI is in healthy range. Continue healthy lifestyle to maintain. Assessment & Plan (01/11/2024 2:54 PM CDT): Weight/BMI is in healthy range. Continue healthy lifestyle to maintain. Assessment & Plan (06/28/2023 8:18 PM GLOBAL EXPANSION SALES DIRECTOR): Weight/BMI is in healthy range. Continue healthy lifestyle to maintain. Fracture of phalanx of toe 05/04/2023 0 01/11/2024 Pain in joint involving ankle and foot 05/04/2023 01/11/2024 Sensation of chest tightness 05/04/2023 01/11/2024 Overview (12/02/2023): O2 provided and patient already with ASA on board. Would consider inpatient vs outpatient ETT myoview. Called cardiology office but waiting for return call. Patient now symptom free and will review with his PCM, Dr. Rivas. BMI 26.0-26.9,adult 03/24/2023 06/28/20 23 Assessment & Plan (03/24/2023 11:28 AM CDT): Weight/BMI is in healthy range. Continue healthy lifestyle to maintain. Cellulitis of lower extremity 03/18/2023 01/11/2024 Assessment & Plan (04/05/2023 9:59 PM CDT): Has been on Keflex and triamcinolone for 1 day for his cellulitis and edema of the lower extremity. It appears as though he is responding and seen significant improvement. Recommend complete the Keflex. Use triamcinolone as needed. He is to keep the legs elevated and as this heals over and he stops draining strongly recommend he use support stockings on a regular basis. Reviewed how to measure his calf to get the correct size. Showed [employer] as how to order. If his symptoms worsen or return he is to follow up immediately. Lower extremity edema 03/18/20232023 Assessment & Plan (04/05/2023 9:59 PM CDT): Has been on Keflex and triamcinolone for 1 day for his cellulitis and edema of the lower extremity. It appears as though he is responding and seen significant improvement. Recommend complete the Keflex. Use triamcinolone as needed. He is to keep the legs elevated and as this heals over and he stops draining strongly recommend he use support stockings on a regular basis. Reviewed how to measure his calf to get the correct size. Showed [employer] website as how to order. If his symptoms worsen or return he is to follow up immediately. Leg swelling 02/11/2023 01/11/2024 Assessment & Plan (02/11/2023 7:55 PM CDT): Patient being treated with Lasix 40 mg daily Leg swelling improved today Advised to contact PCP and/or pulmonology for recommendations regarding Lasix prescription Go to ER if you develop severe leg swelling, shortness of breath or chest pain Chronic cough 02/11/2023 01/11/2024 Assessment & Plan (02/11/2023 7:57 PM CDT): Patient currently being seen by pulmonology, recently had CT and PFTs Patient has a appointment scheduled in 2 weeks, recommended following up with pulmonology at that time regarding chronic cough Continue Xyzal and medications as prescribed by pulmonology Go to ER if you develop severe leg swelling, shortness of breath or chest pain Shortness of breath 01/27/2023 01/11/20 24 Fatigue 12/28/2022 01/11/2024 Assessment & Plan (12/28/2022 7:51 PM CDT): Probably multifactorial. Check labs and followup to re-evaluate Abnormal x-ray 12/28/2022 01/11/2024 Assessment & Plan (12/28/2022 7:51 PM CDT): X-ray on October of 2022 showed a little pacer in the left base. It was uncertain if this could be due to infection or other etiology. Recommended follow-up. Recheck x-ray and follow-up pending those results. Patient is little anxious as his was just diagnosed with the lung cancer. BMI 27.0-27.9,adult 12/15/2022 03/24/20 23 Assessment & Plan (12/15/2022 2:30 PM CDT): Weight/BMI is in healthy range. Continue healthy lifestyle to maintain. Other thrombophilia 12/15/2022 12/16/19 23 Frequency of urination 09/13/202201/10 Assessment & Plan (09/13/2022 7:53 PM GLOBAL EXPANSION SALES DIRECTOR): octavio has chronic back pain with pain radiating into the legs. Status post lumbar back surgery with hardware in the past. Had ABIs that essentially were negative so did not support claudication arterially. Need to consider UTI verses lumbar hardware breakdown versus other etiology beyond just the radicular pain. Will start with a urine culture. Will start with x-rays of the spine to confirm hardware placement. Follow-up on these results. If he would lose control of bowel or bladder different than what he chronically experiences he needs to immediately go to the ER. He verbalizes understanding. BMI 26.0-26.9,adult 09/13/2022 03/24/20 23 Assessment & Plan (09/13/2022 7:53 PM GLOBAL EXPANSION SALES DIRECTOR): Weight/BMI is in healthy range. Continue healthy lifestyle to maintain. Flu vaccine need 06/01/2022 01/11/2024 Assessment & Plan (06/01/2022 8:52 PM CDT): Flu vaccine updated in the office today Medicare annual wellness visit, subsequent 06/01/2022 08/24/2022 Assessment & Plan (06/01/2022 8:53 PM CDT): Encouraged healthy lifestyle, good nutrition and exercise. Encouraged Calcium and Vitamin D and weight bearing exercise for bone health. Reviewed immunizations. Reviewed age appropirate screenings. Medicare Wellness Documentation is completed within the chart Mixed hyperlipidemia 05/12/2022 022 Essential hypertension, benign 05/12/2022 06/01/2022 BMI 28.0-28.9,adult 04/12/2022 06/01/20 22 Assessment & Plan (04/12/2022 7:53 PM CDT): Weight/BMI is in healthy range. Continue healthy lifestyle to maintain. Leg pain, bilateral 04/12/2022 01/11/20 24 Assessment & Plan (10/01/2022 4:38 PM GLOBAL EXPANSION SALES DIRECTOR): Impression: Patient has a history of spinal stenosis requiring surgical interventions to include rods in 2014 and 2018. He is complaining of left lower extremity shooting pain. Bilateral ABIs reveals triphasic waveforms with normal ABIs. Plan: No surgical interventions required at this time. Recommend patient to follow-up with neurosurgeon for re-evaluation of his back. Assessment & Plan (06/01/2022 8:52 PM CDT): Patient has noted increased leg pain. States he just does not feel quite as strong. He has been working with physical therapy and feels as though he is seen improvement. He would like to continue. If we do not see significant change completion of physical therapy may benefit from the vascular studies. Assessment & Plan (04/12/2022 7:52 PM CDT): Patient is complaining of leg pain. This could be multifactorial as he has chronic back pain with history of back surgery. So there could be spinal component verses claudication versus radicular symptoms versus other etiology. I have concerned though because it does have symptoms consistent with claudication he has had a CABG as well as carotid endarterectomy so recommend he discuss with Dr. Wolfe at his vascular appointment the next week to see if further evaluation is needed. Recommend starting physical therapy. Order given. Will continue to monitor closely pending Dr. Dela Cruz recommendation. Need for vaccination with 13 -polyvalent pneumococcal conjugate vaccine 12/29/2021 Assessment & Plan (12/29/2021 5:00 PM CDT): Updated in office today Carotid stenosis, symptomati c w/o infarct, left 10/01/2021 01/11/2024 Assessment & Plan (10/14/2021 1:48 PM GLOBAL EXPANSION SALES DIRECTOR): Assessment/a: Left lower extremity symptomatic carotid stenosis s/p carotid endarterectomy. Continue risk factor modification with ASA, Eliquis and statin therapy. He has moderate 50-69% stenosis of the right internal carotid artery. He will need lifelong surveillance. Follow-up in 6 months with repeat carotid duplex. Carotid artery stenosis 09/18/202112/16 Assessment & Plan (12/04/2023 12:55 PM CDT): Impression: Patent left internal carotid artery seen on carotid duplex and moderate stenosis to the right internal carotid artery. Patient remains asymptomatic. Plan: Continue ongoing risk factor modifications. -patient to follow-up in 6 months for re-evaluation with repeat carotid duplex. Assessment & Plan (10/10/2021 9:47 PM GLOBAL EXPANSION SALES DIRECTOR): Status post carotid endarterectomy. Patient tolerated procedure well. No s/s infection during the post-op period. . Keep followup with Dr Wolfe BMI 27.0-27.9,adult 09/16/2021 12/16/19 23 Assessment & Plan (08/24/2022 9:28 PM GLOBAL EXPANSION SALES DIRECTOR): Weight/BMI is in healthy range. Continue healthy lifestyle to maintain. Assessment & Plan (06/01/2022 8:51 PM CDT): Weight/BMI is in healthy range. Continue healthy lifestyle to maintain. Assessment & Plan (12/17/2021 2:01 PM CDT): Weight/BMI is in healthy range. Continue healthy lifestyle to maintain. Assessment & Plan (09/18/2021 7:50 PM GLOBAL EXPANSION SALES DIRECTOR): Weight/BMI is in healthy range. Continue healthy lifestyle to maintain. Assessment & Plan (09/16/2021 3:08 PM GLOBAL EXPANSION SALES DIRECTOR): Weight/BMI is in healthy range. Continue healthy lifestyle to maintain. Preoperative clearance 09/09/202108/24 Essential hypertension, benign 09/09/2021 12/29/2021 Atypical atrial flutter (CMS/HCC) 07/29/2021 06/04/2024 Assessment & Plan (08/07/2021 9:49 AM GLOBAL EXPANSION SALES DIRECTOR): Assessment/plan: Continue Eliquis. He is scheduled to undergo a cardioversion tomorrow. Mixed hyperlipidemia 07/29/2021 022 Assessment & Plan (08/12/2021 3:05 PM GLOBAL EXPANSION SALES DIRECTOR): Assessment/plan: Continue statin. Essential hypertension 07/29/202109/09 Assessment & Plan (08/12/2021 3:05 PM GLOBAL EXPANSION SALES DIRECTOR): Assessment/plan: Continue amlodipine Assessment & Plan (08/07/2021 9:49 AM GLOBAL EXPANSION SALES DIRECTOR): Assessment/plan: Continue amlodipine. BMI 27.0-27.9,adult 07/18/2021 09/16/19 Assessment & Plan (07/18/2021 1:27 PM GLOBAL EXPANSION SALES DIRECTOR): Weight/BMI is in healthy range. Continue healthy lifestyle to maintain. Atrial flutter by electrocardiogram (CMS/HCC) 07/18/20 21 09/18/2021 Assessment & Plan (07/28/2021 10:19 AM GLOBAL EXPANSION SALES DIRECTOR): A flutter noted on EKG in the office today. See retinal artery occlusion as this was discussed with Dr. Braden Medicare annual wellness visit, subsequent 05/13/2021 07/28/2021 Assessment & Plan (05/13/2021 11:11 PM CDT): Encouraged healthy lifestyle, good nutrition and exercise. Encouraged Calcium and Vitamin D and weight bearing exercise for bone health. Reviewed immunizations. Reviewed age appropirate screenings. Medicare Wellness Documentation is completed within the chart Respiratory infection 03/12/20212020 Assessment & Plan (03/12/2021 9:06 PM CDT): Advised increased fluids, rest Advised dayquil per otc directions F/u in 72h if not improving, sooner if worsening BMI 28.0-28.9,adult 01/31/2021 07/18/20 21 Assessment & Plan (05/13/2021 11:08 PM CDT): Weight/BMI is in healthy range. Continue healthy lifestyle to maintain. Assessment & Plan (03/12/2021 3:26 PM CDT): Weight/BMI is in healthy range. Continue healthy lifestyle to maintain. Assessment & Plan (01/31/2021 2:51 PM CDT): Weight/BMI is in healthy range. Continue healthy lifestyle to maintain. Essential hypertension 01/21/202105/13 Dyslipidemia 01/21/2021 05/13/2021 Generalized weakness 01/10/2021 023 Assessment & Plan (08/24/2022 9:28 PM GLOBAL EXPANSION SALES DIRECTOR): Patient has had generalized weakness over the last months to year. Has been doing physical therapy. Will continue to encourage as well as workup this leg weakness specifically. Await recommendations after completing imaging. Assessment & Plan (04/12/2022 7:53 PM CDT): Patient has been noticing decline in strength. Strongly recommend general physical therapy for gait training fall reduction as well as back pain and leg pain. Order given today. Assessment & Plan (05/13/2021 11:11 PM CDT): Continue PT to improve strength and decrease fall risk. Assessment & Plan (02/16/2021 10:50 PM CDT): Would benefit from PT Assessment & Plan (01/10/2021 9:03 PM CDT): Start PT. Order provided BMI 29.0-29.9,adult 12/31/2020 02/01/20 21 Assessment & Plan (12/31/2020 10:34 AM CDT): Weight/BMI is in healthy range. Continue healthy lifestyle to maintain. 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 Spinal stenosis after history of 2 surgeries. There is a fluid collection. In February recommended he see neurosurgery. Was referred but he was unable to keep this appointment. He prefers now a referral to neurosurgery at [facility]. Appointment placed will await recommendations. Will go ahead and make a referral for pain management so he is in the waiting process as may end up needing neurosurgery and pain management simultaneously. 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 (CMS/HCC) (HCC); Essential hypertension, benign; Mixed hyperlipidemia 09/20/2024 10:30 AM GLOBAL EXPANSION SALES DIRECTOR Office Visit [facility] Orthopaedic Surgery [address] [facility] 1st Floor [address] [place] [address] Bradley Griffin MD Spinal stenosis, lumbar region, with neurogenic claudication (Primary Dx); Lumbar radiculopathy 09/20/2024 Orders Only [facility] Medical [facility] Cardiology [address] [place] [phone] Ella Bunch MD 09/16/2024 Orders Only [facility] [address] [place] [address] Malachi Braden MD 09/09/2024 1:30 PM GLOBAL EXPANSION SALES DIRECTOR [facility] Cancer [place] [facility] [address] [place] [address] Malignant neoplasm of urinary bladder, unspecified site (HCC) (Primary Dx) 09/09/[address] [facility] Surgery [address] [place] [address] Mckayla Thompson 09/08/2024 Telephone [facility] Surgery [address] [place] [address] Domenica Arenas EMT 09/06/[address] [facility] Surgery [address] [place] [address] Mckayla Thompson 09/06/[address] [facility] Surgery [address] [place] [address] Mckayla Thompson 09/05/2024 Telephone [facility] [address] [facility] [address] [place] [address] Malachi Braden MD Test Results (BNP) 09/05/2024 Telephone [facility] [address] [place] [address] Neema Garay PA 09/05/2024 Telephone [facility] [address] [place] [address] Neema Garya PA Medication Request 09/05/2024 Orders Only [facility] [address] [place] [address] ProviderElla MD 09/02/2024 Telephone [facility] [address] [place] [address] Neema Garay PA 09/02/2024 Telephone [facility] [address] [facility] [address] [address] Malachi Braden MD media management 09/01/2024 Telephone [facility] [address] [place] [address] Neema Garay PA 09/01/2024 Telephone [facility] [address] [facility] [address] [address] Marquise Joseph MD 09/01/2024 Orders Only [facility] Medicine [address] [place] [address] Neema Garay PA Chronic congestive heart failure, unspecified heart failure type (HCC) (Primary Dx); Acute cough 08/31/2024 Orders Only [facility] [address] [address] ProviderElla MD 08/31/2024 Telephone [facility] Medicine [address] [place] [address] Neema Garay PA 08/30/2024 Telephone [facility] [address] [place] [address] Neema Garay PA 08/30/2024 Telephone [facility] Medicine [address] [place] [address] Neema Garay PA 08/30/2024 Orders Only [facility] Medicine [address] [place] [address] Swinigan, Neema R., PA Acute cough (Primary Dx); SOB (shortness of breath) 08/30/2024 Orders Only [facility] [address] [place] [address] ProviderElla MD 08/29/2024 5:00 PM GLOBAL EXPANSION SALES DIRECTOR Office Visit [facility] Medicine [address] [place] [phone] Neema Garay PA Acute cough (Primary Dx); COVID; Bilateral leg edema; Chronic congestive heart failure, unspecified heart failure type (HCC); BMI 27.0-27.9,adult 08/28/2024 Nurse Triage [facility] [address] [place] [address] Road [address] [place] [address] Neema Garay PA 08/24/2024 Telephone [facility] ([facility] Urology [address] [place] [address] [facility] 11th [place] [address] [place] [address] Misael Riggs 08/24/2024 Telephone [facility] [address] [facility] [address] [place] [address] Marquise Joseph MD report EKG 08/19/2024 11:00 AM GLOBAL EXPANSION SALES DIRECTOR Infusion [facility] at [address] [place] [address] Malignant neoplasm of urinary bladder, unspecified site (HCC) (Primary Dx) 08/15/2024 Telephone [facility] Medicine [address] [place] [address] Road [address] [place] [address] Neema aGray PA 08/12/2024 11:00 AM GLOBAL EXPANSION SALES DIRECTOR Infusion [facility] at [address] [place] [address] Malignant neoplasm of urinary bladder, unspecified site (HCC) (Primary Dx) 08/08/2024 Telephone [facility] [address] [place] [address] Marquise Joseph MD 08/05/2024 11:00 AM GLOBAL EXPANSION SALES DIRECTOR Infusion [facility] Cancer [place] at [address] [place] [address] Malignant neoplasm of urinary bladder, unspecified site (HCC) (Primary Dx) 08/04/2024 11:30 AM GLOBAL EXPANSION SALES DIRECTOR Ancillary Procedure [facility] [address] [place] [address] Acute on chronic diastolic heart failure (CMS/HCC) (HCC) 08/04/2024 11:00 AM GLOBAL EXPANSION SALES DIRECTOR Office Visit [facility] [address] [facility] [address] [place] [address] Marquise Joseph MD Acute on chronic diastolic heart failure (CMS/HCC) (HCC) (Primary Dx) 08/02/2024 Telephone [facility] Urology [address] [place] [address] 11th [place] [address] Misael Riggs 07/29/2024 11:00 AM GLOBAL EXPANSION SALES DIRECTOR Infusion [facility] Cancer [place] at [address] [place] [address] Malignant neoplasm of urinary bladder, unspecified site (HCC) (Primary Dx) 07/22/2024 1:00 PM GLOBAL EXPANSION SALES DIRECTOR Infusion [facility] Cancer [place] at [address] [place] [address] Malignant neoplasm of urinary bladder, unspecified site (HCC) (Primary Dx) 07/06/2024 Telephone [facility] [place] [address] Chayito Knight CMA 07/06/2024 Telephone [facility] [address] [place] [address] Malachi Braden MD staff message 07/04/2024 Telephone [facility] [address] [address] Malachi Braden MD staff message 07/01/2024 2:00 PM GLOBAL EXPANSION SALES DIRECTOR Office Visit [facility] Medical Group Cardiology [address] [place] [address] Kostas Martinez MD Permanent atrial fibrillation (CMS/HCC) (HCC) (Primary Dx); NSVT (nonsustained ventricular tachycardia) (HCC); Gross hematuria; Atrial fibrillation with slow ventricular response (CMS/HCC) (HCC) from Last 3 Months Immunizations Name Administration Dates Next Due Influenza, Quadrivalent, Hig h Dose, Preservative Free, Intrr 05/16/2022,04/06/2021 Influenza, Split 07/23/2006,08/06/2005 Influenza, Trivalent, High D ose, Split, Preservative Free, Intramuscular 05/25/2024,06/15/2012 Influenza, Trivalent, Preser vative Free, Intramuscular 05/03/2020,05/17/2016,06/17/2015,05/17 Influenza, Unspecified 06/10/2023,2021(Deferred: Patient Refused),08/17/2020(Deferred: Patient Refused),05/19/2018 Influenza, Whole 05/30/2003,06/17/2002 Pfizer SARS-CoV-2 Monovalent Vaccination (12+ Yrs) PURPLE 06/03/2023 Pneumococcal Conjugate PCV 13 12/17/2021 Pneumococcal Polysaccharide PPV23 05/30/2003 RSV Vaccine, Pref, Recombina nt, Subunit, Adjuvanted, PF, IM (Arexvy) 06/03/2023 Td, adsorbed 01/29/2022,12/15/2000 Tdap 01/25/2017,02/04/2012 ZOSTER LIVE 06/09/2011 ZOSTER Recombinant 11/11/2021,08/30/2021 Surgical History Surgery Date Site/Laterality Comments SC PRQ TRLUML CORONARY STENT W/ANGIO ONE ART/BRNCH 08/17/2012 - 08/16/2013 Cath Placement Of Stent 1 - (Added by TW Conv) SC PRQ TRLUML CORONARY STENT W/ANGIO ADDL ART/BRNCH 08/17/2014 - 08/16/2015 Cath Placement Of Stent 2 - (Added by TW Conv) SC CORONARY ARTERY BYPASS 1 CORONARY VENOUS GRAFT 08/17/2001 - 08/16/2002 CABG - (Added by TW Conv) 4 VESSEL SC CHOLECYSTECTOMY Cholecystectomy - (Added by TW Conv) BACK SURGERY Back Surgery - L4-5 hemilaminectomy in '60s (Added by TW Conv) SC APPENDECTOMY Appendectomy - (Added by TW Conv) BACK SURGERY Back Surgery - 09/29/14 & 2018 disc removal and rods placed. (Added by TW Conv)LUMbar BASAL CELL CARCINOMA EXCISION LEFT LEG SPINE SURGERY 08/17/2018 - 08/16/2019 LUMBAR SURGERY HARDWARE SURGERY CAROTID ENARTERECTOMYY 10/01/2021 Left CORONARY ARTERY BYPASS GRAFT CYSTOSCOPY 05/11/2024 Medical History Medical History Date Comments Personal history of other ve nous thrombosis and embolism H/O blood clots - (Added by TW Conv) PATIENT DENIES DVT IN PAST Personal history of other sp ecified conditions History of shortness of vik th - (Added by TW Conv) Personal history of other sp ecified conditions History of heartburn - (Adde d by TW Conv) Intervertebral disc disorder with radiculopathy of lumbar region Lumbar disc prolapse wi th compression radiculopathy - (Added by TW Conv) Cerebral infarction due to u nspecified occlusion or stenosis of unspecified cerebral artery ([facility]) 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 - 07/2014, reported L weakness and language disturbance (Added by TW Conv) Coronary artery disease Type 2 diabetes mellitus ([facility]) Gastric reflux Hypertension Hyperlipidemia Basal cell carcinoma SKIN CANCER REMOVED LEFT LEG IN OFFICE [place] (myocardial infarction) ([facility]) 2001 CABG GERD (gastroesophageal reflux disease) Enlarged prostate 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 Atrial flutter ([facility]) ([facility]) 07/2021 Sleep apnea patient not ever offered a machine a machine,over 10 years ago Stroke ([facility]) 2014 NO RESIDUAL STAT ES PATIENT Stroke ([facility]) 08/2021 tara Cuello noted t o have left eye stroke, echo/carotids checked, aflutter also JENA (hard of hearing) bilateral hearing aids Wears glasses Presence of tooth-root and m andibular implants one tooth implant Ambulates with cane short distan ce uses cane, long distance uses walker Stented coronary artery 2004 x 2 Carotid artery stenosis, uni lateral, left hx eye stroke this month not ed Aug 2021 History of cardioversion recent EKG, showed return to a flutter patient stated 09/11/21 Neurogenic bladder cannot releas e urine since spinal surgeries/patient self caths H/O diabetic neuropathy Fibrillation, atrial (CMS/HCC) (HCC) Uses self-applied continuous glucose monitoring device Family History Medical History Relation Name Comments Heart disease Father Nas Heart disease Sister 1 Michelle Heart disease Sister 2 Doreen Heart disease Sister 3 Anesthesia problems Neg Hx Relation Name Status Comments Father Nas Mother Sister 1 Doll Sister 2 Doreen Sister 3 Social History Tobacco Use Types Packs/Day Years Used Date Smoking Tobacco: Former Cigarettes 1.1 26.7 0 03/30/1966 - 03/30/1986 Smokeless Tobacco: Never Tobacco Cessation:Counseling Given: Not Answered Alcohol Use Standard Drinks/Week Comments Yes 1 (1 standard drink = 0.6 oz pur e alcohol) rare [facility] Utilities Answer Date Recorded In the past 12 months has e electric, gas, oil, or water company [...] often do you attend chur ch or nondenominational services? Never 04/04/2024 Do you belong to any clubs o r organizations such as confucianist groups, unions, fraternal or athletic groups, or [...] any time in the past 12 m [facility], were you homeless or living in a detention (including now)? No 04/04/2024 Personal Safety Answer Date Recorded Have you ever been in or are you currently in a harmful physical or emotional relationship or is someone making you feel afraid or unsafe? Denies 06/08/2024 Sex and Gender Information Value Date Recorded Sex Assigned at Not on file Legal Sex Male 8:56 PM GLOBAL EXPANSION SALES DIRECTOR Gender Identity Male 07/06/2024 6:10 PM GLOBAL EXPANSION SALES DIRECTOR Sexual Orientation Not on file Obstetrics History Last Filed Vital Signs Vital Sign Reading Time Taken Comments Blood Pressure 110/58 09/26/2024 2:14 PM GLOBAL EXPANSION SALES DIRECTOR Pulse 50 09/26/2024 2:14 PM GLOBAL EXPANSION SALES DIRECTOR Temperature 36.7 C (98 F) 09/09/2024 1:26 PM GLOBAL EXPANSION SALES DIRECTOR Respiratory Rate 16 09/09/2024 1:26 PM GLOBAL EXPANSION SALES DIRECTOR Oxygen Saturation 96% 09/26/2024 2:14 PM GLOBAL EXPANSION SALES DIRECTOR Inhaled Oxygen Concentration - - Weight 89.5 kg (197 lb 6.4 oz) 09/26/2024 2:14 P M GLOBAL EXPANSION SALES DIRECTOR Height 175.9 cm (5' 9.25 ) 08/19/2024 1 1:10 AM GLOBAL EXPANSION SALES DIRECTOR w/o shoes Body Mass Index 28.94 08/19/2024 11:10 AM GLOBAL EXPANSION SALES DIRECTOR Plan of Treatment Health Maintenance Due Date Last Done Comments Foot Exam 1940 Hepatitis B Screening 1958 Pneumococcal vaccine 65+ (3 of 3 - PPSV23 or PCV20) 12/17/2022 12/17/2021, 05/30/2003 Albumin Creatinine Ratio, Urine 12/17/2023 Covid-19 Vaccine ( - 2023-2 5 season) 2024 06/03/2023, 05/20/2021, 10/17/2020, Additional history exists Hemoglobin A1C 10/05/2024 04/04/2024, 09/2022, 03/30/2019, Additional history exists Well Visit 65+ 05/25/2025 05/25/2024, 05/19, 05/16/2022, Additional history exists Dilated Eye Exam 05/30/2025 05/30/2024, , 10/13/2022, Additional history exists Fall Risk Assessment 06/08/2025 06/08/2024, 05/25/2024, 12/14/2023, Additional history exists Depression Screening 08/29/2025 08/29/2024, 05/25/2024, 04/06/2024, Additional history exists Lipid Panel 09/16/2025 09/16/2024, 04/17, 10/20/2023, Additional history exists eGFR 09/16/2025 09/16/2024, 08/17, 04/29/2024, Additional history exists DTaP/Tdap/Td Vaccine (4 - Td or Tdap) 01/30/2032 01/29/2022, 01/25/2017, 02/04/2012, Additional history exists Zoster Vaccine Completed 11/11/2021, 08/17, 06/09/2011 Influenza Vaccine Completed 05/25/2024, , 05/16/2022, Additional history exists Medical Devices Implanted Type Area Radiopharmacist Device Identifier Shelf Expiration Date Model / Serial / Lot Wire Wire N/A: Chest Spinal Graft Tech [id number] Magnifuse 10x1cm Graft Bone Demineralized Bone Matrix - [id number] - [id number] Implanted:Qty: 1 on 04/27/2019 by Tariq Kirk MD at [facility] N/A: Spine Lumbar Spinal Graft Tech 10/13/2020 [id number] / [id number] / [facility] [id number] Actifuse Abx Resorbable; Scaffold; Osteostimulative ; Granule 1-2 - [id number] Implanted:Qty: 1 on 04/27/2019 by Tariq Kirk MD at [facility] N/A: Spine Lumbar [facility] 01/14/2021 [id number] / / [id number] [facility] [employer] [id number] - [id number] - [id number] Implanted:Qty: 1 on 04/27/2019 by Tariq Kirk MD at [facility] N/A: Spine Lumbar [employer] 03/10/2024 [id number] / [employer] [id number] Macey 3 Mccoy Od6.5 Mm L55 Mm Polyaxial Spine Screw Bone Nonsterile - [id number] Implanted:Qty: 1 on 04/27/2019 by Tariq Kirk MD at [facility] N/A: Spine Lumbar Brenna [employer] [id number] / / [employer] [id number] Macey 3 Mccoy 6.5mm 50mm Polyaxial Spine Screw Bone Nonsterile - [id number] Implanted:Qty: 1 on 04/27/2019 by Tariq Kirk MD at [facility] N/A: Spine Lumbar [employer]na [employer] [id number] / / Brenna Spine [id number] Macey 3 Mccoy Od5.5 Mm L45 Mm Polyaxial Spine Screw Bone Nonsterile - [id number] Implanted:Qty: 3 on 04/27/2019 by Tariq Kirk MD at [facility] N/A: Spine Lumbar [employer]na [employer] [id number] / / [employer] [id number] Macey 3 Spine Peggy Spinal Titanium - [id number] Implanted:Qty: 11 on 04/27/2019 by Tariq Kirk MD at [facility] N/A: Spine Lumbar [employer]ine [id number] / / [employer] [id number] Radius 6.5mm 600mm Pedicle Matt Spinal Vitallium - [id number] Implanted:Qty: 1 on 04/27/2019 by Tariq Kirk MD at [facility] N/A: Spine Lumbar [employer] [id number] / / [employer] [id number] Macey 3 Mccoy Od5.5 Mm L55 Mm Polyaxial Cannulated Spine Screw Bone Nonsterile - [id number] Implanted:Qty: 2 on 04/27/2019 by Tariq Kirk MD at [facility] N/A: Spine Lumbar Brenna [employer]ine [id number] / / [facility] [id number] Vascu-Guard 8x.8cm Peripheral Patch Vascular Bovine Pericardium - [id number] Implanted:Qty: 1 on 10/01/2021 by Nash Wolfe MD at [facility] Left: Neck [employer] [id number] 05/23/2026 [id number] / / [id number] Procedures Procedure Name Priority Date/Time Associated Diagnosis Comments CARDIOLOGY DOCUMENT SCAN Routine 09/20/2024 3:02 PM GLOBAL EXPANSION SALES DIRECTOR COMPREHENSIVE METABOLIC PANEL Routine 09/16/2024 11:13 AM GLOBAL EXPANSION SALES DIRECTOR LIPID PANEL Routine 09/16/2024 11:13 AM GLOBAL EXPANSION SALES DIRECTOR CBC WITH AUTO DIFFERENTIAL Routine 09/16/2024 11:13 AM GLOBAL EXPANSION SALES DIRECTOR XR CHEST PA LATERAL 2 VIEWS Schedule Routine, Read Routine (OP Routine) 09/05/2024 9:21 AM GLOBAL EXPANSION SALES DIRECTOR COMPREHENSIVE METABOLIC PANEL STAT 09/02/2024 1:53 PM GLOBAL EXPANSION SALES DIRECTOR Chronic congestive heart failure, unspecified heart failure type (HCC) PRO B-TYPE NATRIURETIC PEPTIDE STAT 09/02/2024 1:51 PM GLOBAL EXPANSION SALES DIRECTOR Chronic congestive heart failure, unspecified heart failure type (HCC) CARDIOLOGY DOCUMENT SCAN Routine 08/31/2024 2:52 PM GLOBAL EXPANSION SALES DIRECTOR CARDIOLOGY DOCUMENT SCAN Routine 08/30/2024 2:15 PM GLOBAL EXPANSION SALES DIRECTOR CARDIOLOGY DOCUMENT SCAN Routine 08/30/2024 1:29 PM GLOBAL EXPANSION SALES DIRECTOR POC INFLUENZA A/B, COVID-19 ANTIGEN Routine 08/29/2024 5:16 PM GLOBAL EXPANSION SALES DIRECTOR Acute cough ECG 12-LEAD Routine 07/01/2024 2:03 PM GLOBAL EXPANSION SALES DIRECTOR Permanent atrial fibrillation (CMS/HCC) (HCC) NSVT (nonsustained ventricular tachycardia) (HCC) Gross hematuria Atrial fibrillation with slow ventricular response (CMS/HCC) (HCC) HM DIABETES EYE EXAM Routine 05/30/2024 12:01 PM CDT HEMOGLOBIN A1C Routine 04/04/2024 4:15 AM CDT ALBUMIN CREATININE RATIO, URINE Routine 12/16/2022 10:56 AM CDT Hypertension associated with diabetes (HCC) from Last 3 Months or Most Recently Relevant to Health Maintenance Results * Cardiology Document Scan (09/20/2024 3:02 PM GLOBAL EXPANSION SALES DIRECTOR) Anatomical Region Laterality Modality Other us Historical Provider [facility] DEBORAH THAO Final Result * (ABNORMAL) CBC with auto differential (09/16/2024 11:13 AM GLOBAL EXPANSION SALES DIRECTOR) WBC 8.5 3.8 - 10.8 Thousand/u L [facility] RBC, POC 3.85(L) 4.20 - 5.80 Million/uL [facility] Hgb 8.4(L) 13.2 - 17.1 g/dL [facility] Hct 29.8(L) 38.5 - 50.0 % [facility] MCV 77.4(L) 80.0 - 100.0 fL [facility] MCH 21.8(L) 27.0 - 33.0 pg [facility] MCHC 28.2(L) 32.0 - 36.0 g/dL [facility] Comment: For adults, a slight decrease in the calculated MCHC value (in the range of 30 to 32 g/dL) is most likely not clinically significant; however, it should be interpreted with caution in correlation with other red cell parameters and the patient's clinical condition. Rdw 17.0(H) 11.0 - 15.0 % [facility] Platelets 339 140 - 400 Thousand/u L [facility] MPV 9.6 7.5 - 12.5 fL [facility] Neutrophils, abs 5,746 1,500 - 7,800 cells/uL [facility] Lymphocytes, abs 1,454 850 - 3,900 cells/uL [facility] Monocyte abs 1,080(H) 200 - 950 cells/uL [facility] Eosinophils, abs 162 15 - 500 cells/uL [facility] Basophils, abs 60 0 - 200 cells/uL [facility] Neutrophils 67.6 % [facility] Lymphocyte pct 17.1 % [facility] Monocytes 12.7 % [facility] Eosinophils 1.9 % [facility] Basophils 0.7 % [facility] 09/16/2024 11:1 3 AM GLOBAL EXPANSION SALES DIRECTOR 09/16/2024 11:14 AM GLOBAL EXPANSION SALES DIRECTOR Narrative [facility] - 09/16/2024 5:29 PM GLOBAL EXPANSION SALES DIRECTOR FASTING:YES FASTING: YES us Malachi Braden MD LAB BLOOD ORDERABLES Final Result KIRK [facility] [address] [place] [address] * Lipid panel (09/16/2024 11:13 AM GLOBAL EXPANSION SALES DIRECTOR) Cholesterol 93 <200 mg/dL [facility] HDL 45 > OR = 40 mg/dL [facility] Triglycerides 93 <150 mg/dL [facility] LDL 30 mg/dL (calc) [facility] Comment: Reference range: <100 Desirable range <100 mg/dL for primary prevention; <70 mg/dL for patients with CHD or diabetic patients with > or = 2 CHD risk factors. LDL-C is now calculated using the Chao-Griffith calculation, which is a validated novel method providing better accuracy than the Friedewald equation in the estimation of LDL-C. Chao SS et al. ELISEO. 2013;310(19): 3246-0685 (http://education.[employer]/faq/WSQ146) Chol/HDL ratio 2.1 <5.0 (calc) [facility] Non-HDL, (LDL+VLDL) 48 <130 mg/dL (calc) [facility] Comment: For patients with diabetes plus 1 major ASCVD risk factor, treating to a non-HDL-C goal of <100 mg/dL (LDL-C of <70 mg/dL) is considered a therapeutic option. 09/16/2024 11:1 3 AM GLOBAL EXPANSION SALES DIRECTOR 09/16/2024 11:14 AM GLOBAL EXPANSION SALES DIRECTOR Narrative [facility] - 09/16/2024 5:29 PM GLOBAL EXPANSION SALES DIRECTOR FASTING:YES FASTING: YES us Malachi Braden MD LAB BLOOD ORDERABLES Final Result [facility] [address] [place] [address] * (ABNORMAL) Comprehensive metabolic panel (09/16/2024 11:13 AM GLOBAL EXPANSION SALES DIRECTOR) Pathologist [facility] Glucose 104(H) 65 - 99 mg/dL [facility] Comment: Fasting reference interval For someone without known diabetes, a glucose value between 100 and 125 mg/dL is consistent with prediabetes and should be confirmed with a follow-up test. BUN 33(H) 7 - 25 mg/dL [facility] Creatinine 1.12 0.70 - 1.22 mg/dL [facility] eGFR 64 > OR = 60 mL/min/1.7 3m2 [facility] BUN/creat ratio 29(H) 6 - 22 (calc) [facility] Sodium 138 135 - 146 mmol/L [facility] Potassium, pl 3.9 3.5 - 5.3 mmol/L [facility] Chloride 99 98 - 110 mmol/L [facility] CO2 27 20 - 32 mmol/L [facility] Calcium 9.1 8.6 - 10.3 mg/dL [facility] Protein, sr 7.3 6.1 - 8.1 g/dL [facility] Albumin 4.1 3.6 - 5.1 g/dL [facility] GLOBULIN 3.2 1.9 - 3.7 g/dL (calc) [facility] Alb/glob ratio 1.3 1.0 - 2.5 (calc) [facility] Bilirubin, total 1.0 0.2 - 1.2 mg/dL [facility] Alk phos 64 35 - 144 U/L [facility] AST 16 10 - 35 U/L [facility] ALT (SGPT) 9 9 - 46 U/L [facility] 09/16/2024 11:1 3 AM GLOBAL EXPANSION SALES DIRECTOR 09/16/2024 11:14 AM GLOBAL EXPANSION SALES DIRECTOR Narrative [facility] - 09/16/2024 5:29 PM GLOBAL EXPANSION SALES DIRECTOR FASTING:YES FASTING: YES Malachi Braden MD LAB BLOOD ORDERABLES Final Result Performing Organization Address City/State/[facility] Co de Phone Number [facility] [address] [place] [address] * XR Chest Pa Lateral 2 Views (09/05/2024 9:21 AM GLOBAL EXPANSION SALES DIRECTOR) Anatomical Region Laterality Modality Body, Chest N/A Radiographic Minerva ging Historical Provider IMG XR PROCEDURES Edited Result - Final * (ABNORMAL) Comprehensive metabolic panel (09/02/2024 1:53 PM GLOBAL EXPANSION SALES DIRECTOR) Glucose 247(H) 65 - 99 mg/dL [facility] Comment: Fasting reference interval For someone without known diabetes, a glucose value >125 mg/dL indicates that they may have diabetes and this should be confirmed with a follow-up test. BUN 39(H) 7 - 25 mg/dL [facility] Creatinine 1.30(H) 0.70 - 1.22 mg/dL [facility] eGFR 54(L) > OR = 60 mL/min/1.7 3m2 [facility] BUN/creat ratio 30(H) 6 - 22 (calc) [facility] Sodium 133(L) 135 - 146 mmol/L [facility] Potassium, pl 3.8 3.5 - 5.3 mmol/L [facility] Chloride 94(L) 98 - 110 mmol/L [facility] CO2 25 20 - 32 mmol/L [facility] Calcium 9.0 8.6 - 10.3 mg/dL [facility] Protein, sr 7.1 6.1 - 8.1 g/dL [facility] Albumin 3.9 3.6 - 5.1 g/dL [facility] GLOBULIN 3.2 1.9 - 3.7 g/dL (calc) [facility] Alb/glob ratio 1.2 1.0 - 2.5 (calc) [facility] Bilirubin, total 1.1 0.2 - 1.2 mg/dL [facility] Alk phos 71 35 - 144 U/L [facility] AST 22 10 - 35 U/L [facility] ALT (SGPT) 14 9 - 46 U/L [facility] Blood 09/02/2024 1:53 PM GLOBAL EXPANSION SALES DIRECTOR 09/02/2024 4:29 PM GLOBAL EXPANSION SALES DIRECTOR Result [facility] Neema JIANG LAB BLOOD ORDERABLES Final Result [facility] [address] [place] [address] * (ABNORMAL) Pro B-type natriuretic peptide (09/02/2024 1:51 PM GLOBAL EXPANSION SALES DIRECTOR) NT PROBNP 4,270(H) <450 pg/mL [facility] Blood 09/02/2024 1:51 PM GLOBAL EXPANSION SALES DIRECTOR 09/02/2024 5:06 PM GLOBAL EXPANSION SALES DIRECTOR Result [facility] Neema JIANG LAB BLOOD ORDERABLES Final Result [facility] [address] [address] * Cardiology Document Scan (08/31/2024 2:52 PM GLOBAL EXPANSION SALES DIRECTOR) Anatomical Region Laterality Modality Other Historical Provider CV CARDIAC SERVICES PROCE DURES Final Result * Cardiology Document Scan (08/30/2024 2:15 PM GLOBAL EXPANSION SALES DIRECTOR) Anatomical Region Laterality Modality Other Result [facility] Historical Provider CV CARDIAC SERVICES PROCE DURES Final Result * Cardiology Document Scan (08/30/2024 1:29 PM GLOBAL EXPANSION SALES DIRECTOR) Anatomical Region Laterality Modality Other Historical Provider CV CARDIAC SERVICES PROCE DURES Final Result * (ABNORMAL) POC Influenza A/B, COVID-19 antigen (08/29/2024 5:16 PM GLOBAL EXPANSION SALES DIRECTOR) Influenza A Ag, POC Negative Negative [facility] Influenza B Ag, POC Negative Negative [facility] COVID-19 Ag POC Positive(A) Presumptive Negative, Invalid [facility] Nasal 08/29/2024 5:16 PM GLOBAL EXPANSION SALES DIRECTOR Neema JIANG POINT OF CARE TEST ORDERAB LES Final Result [id number] [address] [place] [address] * ECG 12-LEAD (07/01/2024 2:03 PM GLOBAL EXPANSION SALES DIRECTOR) Narrative Kostas Martinez MD - 07/01/2024 2:03 PM GLOBAL EXPANSION SALES DIRECTOR Kostas Martinez MD 07/01/2024 2:03 PM ECG 12 lead Date/Time: 07/01/2024 2:03 PM Performed by: Kostas Martinez MD Authorized by: Kostas Martinez MD Comments: Atrial fibrillation, PVC,IVCD, QRSd 124ms, QTc 432ms. Kostas Martinez MD ECG ORDERABLES Edited Re sult - Final * DIABETES EYE EXAM (05/30/2024 12:01 PM CDT) SCRIBED HM DIABETIC DILATED EYE EXAM Normal Historical Provider HEALTH MAINTENANCE Edited Result - Final * (ABNORMAL) Hemoglobin A1c (04/04/2024 4:15 AM CDT) Hgb A1C 7.2(H) 4.0 - 5.6 % Comment:Testing performed by : [facility], [address] [place] [address]., [id number] Estimated Average Glucose 160 mg/dL [facility] Comment: The ADA recommends reporting an estimated Average Glucose (eAG) with all Hemoglobin A1c results using the equation derived from a study of 507 normal and diabetic adults. Minority populations were underrepresented and children were not included. (Diabetes Care 31:0480-5531, 2008). The eAG is not equivalent to a fasting glucose. Testing performed by: [address] [address] Blood 04/04/2024 4:15 AM CDT 04/04/2024 5:07 AM CDT Thalia Apple MD LAB BLOOD ORDER MARTÍNEZ Final Result [facility] [address] [facility] [place] [address] * Albumin Creatinine Ratio, Urine (12/16/2022 10:56 AM CDT) Pathologist [facility] Creatinine ur 85.5 Not Estab. mg/dL [facility] - 01 Microalbumin, ur 23.7 Not Estab. ug/mL [facility] - 01 Microalbumin/cre at ratio 28 0 - 29 mg/g creat [facility] - 01 Comment: Normal: 0 - 29 Moderately increased: 30 - 300 Severely increased: >300 Urine 12/16/2022 10:5 6 AM CDT 12/16/2022 Narrative [facility] - 12/17/2022 4:11 PM CDT Performed at: [address] [place] [id number] Furniture Finisher: Tne Yang PhD, Phone: [phone] Neema JIANG LAB URINE ORDERABLES Final Result [facility] - 01 from Last 3 Months or Most Recently Relevant to Health Maintenance Additional Health Concerns Infection Onset Date Last Indicated COVID: Recovered Comment:Added based on recent COVID infection. 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 * Full Code (Latest Code Status on File) Date Activated Date Inactivated Comments 04/03/2024 10:37 PM 04/05/2024 9:34 PM * Full Code Date Activated Date Inactivated Comments 10/01/2021 1:17 PM 10/02/2021 7:50 PM * Full Code Date Activated Date Inactivated Comments 08/08/2021 10:47 AM 08/08/2021 3:37 PM * Full Code Date Activated Date Inactivated Comments 04/27/2019 4:36 PM 05/02/2019 8:17 PM 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 Relationship Specialty Start Date End Date Neema Garay PA [address] [address] PCP - General Internal Medicine 12/24/20 Malachi Braden MD [address] [address] [address] Consulting Physician Cardiology 01/07/21 Ag Redding MD [address] [address] [place] [address] Consulting Physician Family Medicine 07/08/23 Rosalinda Bingham MD [address] [address] Consulting Physician Pulmonary Disease 04/08/24 Yissel Leonard MD [address] [address] [facility] [address] [place] [address] Referring Physician Internal Medicine 04/26/24 Kostas Martinez MD [address] [facility] [address] [address] [place] [address] Consulting Physician Cardiology 04/26/24 Bradley Griffin MD [address] [facility] [address] [place] [address] Consulting Physician Physical Medicine and Rehabilitation 08/29/24
--- OUTSIDE RECORDS SUMMARY | 2024-09-27 06:38 | XMS_ITS | Clinical Summary ---
Author Organization [facility] Address [address] [place] [address] Care Team Providers Care Patient Portal Representative Name Role Phone Unavailable Primary Care Provider Unavailabl e Source Comments [facility],non-owned Affiliates and Associated Physician Practices is amultiple site organization consisting of ambulatory clinics and hospital sitesin [place], [place], [place] and [place]. This disclosure is being madepursuant to the Care Everywhere program and may not contain all information available regarding this patient. Last updated 18.[facility] [place] Social History Tobacco Use Types Packs/Day Years Used Date Smoking Tobacco: Never Assessed Sex and Gender Information Value Date Recorded Sex Assigned at Not on file Gender Identity Not on file Sexual Orientation Not on file Plan of Treatment Health Maintenance Due Date Last Done Comments MEDICARE AWV 12 MONTHS 1938 DTAP/TDAP/TD VACCINES (1 - Tdap) 1957 PNEUMOCOCCAL VACCINE 50+ (1 of 1 - PCV) 1988 ZOSTER VACCINE (1 of 2) 1988 Respiratory Syncytial Virus (RSV) Vaccine Pt: or over 60 yrs (1 - 1-dose 75+ series) 2013 COVID-19 VACCINE ( - 2023- season) 2024 INFLUENZA VACCINE (#1) 2024 8, 05/17/2016, 06/17/2015, Additional history exists DEPRESSION SCREENING 08/17/2024 HEPATITIS B VACCINE Aged Out No longe r eligible based on patient's age to complete this topic HIB VACCINE Aged Out No longer eligi ble based on patient's age to complete this topic HPV VACCINE Aged Out No longer eligi ble based on patient's age to complete this topic MENINGOCOCCAL (Group B) VACCINE Aged Out No longer eligible based on patient's age to complete this topic MENINGOCOCCAL VACCINE Aged Out No danay jam eligible based on patient's age to complete this topic
--- OUTSIDE RECORDS SUMMARY | 2024-09-27 06:38 | XMS_ITS | Continuity of Care Document ---
Author Name [facility] Organization [facility] Care Team Providers Care Evp Operations Name Role Phone [facility] Unavailable Unavailable Problems Combined list of problems from Department of Defense and Veterans Affairs facilities. It does not include entries that were removed or entered in error. Problem Status Onset Date Problem Type Date of Resolution Comments Source Age-related hearing loss Active Condition [facility] diabetes mellitus Active Condition [facility] hyperlipidemia Active Condition [facility]D essential hypertension Active Condition DoD coronary artery disease Active Condition [facility] visit for: issue repeat prescription for medication Inactive Condition DoD fracture phalanges of foot Active Condition [facility] Coronary Artery Surgery CABG Active Condition [facility] compression arthralgia - ankle / foot Active Condition [facility] routine history and physical Inactive Condition [facility] visit for: administrative purpose Inactive Condition DoD actinic keratosis Active Condition DoD chest tightness or heavy pressure Active Condition O2 provided and patient already with ASA on board. Would consider inpatient vs outpatient ETT myoview. Called cardiology office but waiting for return call. Patient now symptom free and will review with his PCM, Dr. Rivas. [facility] Medications Combined list of outpatient medications from Department of Defense and Veterans Affairs facilities.Medications provided include 1) outpatient medications from the last 15 months, and 2) patient-reported medications. Medication Details Route Status Patient Instructions Prescription Expires Prescription Number Last Dispense Date Ordering Provider Order Date Order Qty Source albuterol 90 mcg inhaler [8.5g] See Instruct ions, # 8.5 g, 0 total refill(s ), Hard Stop Ordered 11/03/2024 8.5 Ambul at ory Pharmac y amLODIPine (U/D) 5 MG ORAL TAB Be careful if taking OTCs.Niall e or use exactly as directed . Active 11/03/2024 [id number] 4 2023 90 [employer] Tima PHELPS ([facility]) amLODIPine 5 mg oral tablet TAKE ONE TABLET DAILY, # 90 EA, 1 total refill(s ), Acute Discont inued 01/21/2023 90.0 Ambulat ory Pharmac y amLODIPine 5 mg tablet 5 mg, Oral, Daily, # 90 EA, 1 total refill(s ), Hard Stop Oral (given by mouth) Ordered 05/25/2025 90.0 Ambul at ory Pharmac y amLODIPine 5 mg tablet 5 mg, Oral, Daily, # 90 EA, 0 total refill(s ), Hard Stop Oral (given by mouth) Discont inued 05/31/2024 90.0 Ambulat ory Pharmac y amoxicillin -clavulanat e 875 mg-125 mg oral tablet TAKE ONE TABLET TWICE DAILY FOR 5 DAYS, # 10 EA, 0 total refill(s ), Acute Complet ed 09/07/2023 10.0 Ambulat ory Pharmac y APIXABAN 5 MG ORAL TAB Take or use exactly as directed .Obtain advice for OTCs.Nanette ck with your doctor before becoming . Active 11/03/2024 [id number] 4 [address] [place] [address] Tima PHELPS ([facility]) apixaban 5 mg oral tablet TAKE ONE TABLET TWICE DAILY, # 180 EA, 1 total refill(s ), Acute Discont inued 01/21/2023 180.0 Ambulat ory Pharmac y atorvastati n 20 mg oral tablet TAKE ONE TABLET DAILY, # 90 EA, 1 total refill(s ), Acute Complet ed 08/19/2023 90.0 Ambulat ory Pharmac y atorvastati n 20 mg tablet 20 mg, Oral, Daily, # 90 EA, 1 total refill(s ), Hard Stop Oral (given by mouth) Ordered 05/25/2025 90.0 Ambul at ory Pharmac y atorvastati n 20 mg tablet See Instruct ions, # 90 EA, 1 total refill(s ), Hard Stop Discont inued 11/06/2023 90.0 Ambulat ory Pharmac y Baqsimi 3 mg nasal powder [1EA] See Instruct ions, # 1 EA, 0 total refill(s ), Hard Stop Complet ed 07/29/2024 1.0 Ambulat ory Pharmac y diphenhydrA MINE (U/D) 25 MG ORAL CAP May cause drowsine ss.Obtai n advice for OTCs. Active 11/03/2024 [id number] 4 [address] [place] [address]) diphenhydrA MINE 25 mg capsule See Instruct ions, # 30 EA, 0 total refill(s ), Hard Stop Discont inued 03/23/2024 30.0 Ambulat ory Pharmac y dulaglutide 0.75 mg/0.5 mL subcutaneou s solution INJECT 0.75MG SUB-CUTA NEOUSLY EVERY WEEK DIRECTED , # 6 mL, 3 total refill(s ), Acute Complet ed 05/25/2023 6.0 Ambulat ory Pharmac y dulaglutide 0.75 mg/0.5 mL subcutaneou s solution INJECT 0.75MG SUB-CUTA NEOUSLY EVERY WEEK DIRECTED , # 2 mL, 11 total refill(s ), Acute Discont inued 07/02/2023 2.0 Ambulat ory Pharmac y Dulaglutide 3 mg/mL, Injection, 0.5mL Autoinjecto r refriger ateCheck with your doctor before becoming .Store in original package. 07/01/2024 [id number] 3 [address] [place] [address]) Dulaglutide 6 mg/mL, Injection, 0.5mL Autoinjecto r refriger ate 07/29/2024 [id number] 3 [address] [place] [address]) Eliquis 5 mg tablet 5 mg, Oral, BID, # 180 EA, 2 total refill(s ), Hard Stop Oral (given by mouth) Discont inued 08/18/2024 180.0 Ambulat ory Pharmac y Eliquis 5 mg tablet 5 mg, Oral, # 180 EA, 1 total refill(s ), Hard Stop Oral (given by mouth) Ordered 08/08/2025 180.0 Ambul at ory Pharmac y FINASTERIDE 5 MG ORAL TAB Do not take if . Active 11/03/2024 [id number] 4 [address] [place] [address]) finasteride 5 mg oral tablet TAKE ONE TABLET BY MOUTH EARLY EVERY MORNING BEFORE BREAKFAS T, # 90 EA, 1 total refill(s ), Acute Discont inued 01/21/2023 90.0 Ambulat ory Pharmac y finasteride 5 mg tablet See Instruct ions, Oral, # 90 EA, 1 total refill(s ), Hard Stop Oral (given by mouth) Ordered 05/25/2025 90.0 Ambul at ory Pharmac y finasteride 5 mg tablet See Instruct ions, # 90 EA, 1 total refill(s ), Hard Stop Discont inued 05/31/2024 90.0 Ambulat ory Pharmac y FLONASE-OTC (BRAND) 50 MCG MARK ANTHONY SPSN [9.9] Take or use exactly as directed .For the nose. Active 11/03/2024 [id number] 4 2023 16 [facility] Tima PHELPS ([facility]) fluticasone 50 mcg/inh nasal spray [16g] See Instruct ions, # 16 g, 11 total refill(s ), Hard Stop Discont inued 03/23/2024 16.0 Ambulat ory Pharmac y FLUTICASONE PROPIONATE (FLUTICASON E PROPIONATE) , 50MCG, SPRAY SUSP, NASAL, APOTEX SINAI, 16 g AER W/ADAP Cancele d [id number] : 2023 0 Pharmac y Data Transac tion Service Facilit y Freestyle Lite Monitor Rx USE DIRECTED , # 1 EA, 0 total refill(s ), Acute Complet ed 12/28/2023 1.0 Ambulat ory Pharmac y furosemide 20 mg tablet See Instruct ions, # 30 EA, 1 total refill(s ), Hard Stop Ordered 06/01/2025 30.0 Ambul at ory Pharmac y furosemide 20 mg tablet 20 mg, Oral, Daily, # 90 EA, 1 total refill(s ), Hard Stop Oral (given by mouth) Discont inued 06/02/2024 90.0 Ambulat ory Pharmac y furosemide 40 mg oral tablet TAKE ONE TABLET DAILY, # 90 EA, 1 total refill(s ), Acute Discont inued 01/21/2023 90.0 Ambulat ory Pharmac y furosemide 40 mg tablet See Instruct ions, # 90 EA, 2 total refill(s ), Acute Discont inued 11/06/2023 90.0 Ambulat ory Pharmac y glucagon 1 mg/0.2 mL subcutaneou s solution INJECT 1MG SUB-CUTA NEOUSLY ONCE-MAY REPEAT ONCE AFTER 15 MINUTES IF NO RESPONSE , # 0.4 mL, 4 total refill(s ), Acute Complet ed 09/09/2023 0.4 Ambulat ory Pharmac y Glucagon 3 mg Powder, Nasal Take or use exactly as directed .Obtain advice for OTCs.For the nose. 07/29/2024 [id number] 3 [address] [place] [address] Tima PHELPS ([facility]) HumaLOG Mix KwikPen 75/25 [3mL] See Instruct ions, # 45 mL, 3 total refill(s ), Hard Stop Discont inued 04/20/2024 45.0 Ambulat ory Pharmac y hydrochloro thiazide-lo sartan 25 mg-100 mg oral tablet TAKE 1 TABLET BY MOUTH DAILY, # 90 EA, 1 total refill(s ), Acute Discont inued 01/21/2023 90.0 Ambulat ory Pharmac y hydrochloro thiazide-lo sartan 25 mg-100 mg tablet = 1 tab(s), Oral, Daily, # 90 EA, 1 total refill(s ), Hard Stop Oral (given by mouth) Discont inued 08/18/2024 90.0 Ambulat ory Pharmac y hydrochloro thiazide-lo sartan 25 mg-100 mg tablet See Instruct ions, # 90 EA, 2 total refill(s ), Hard Stop Ordered 11/03/2024 90.0 Ambul at ory Pharmac y Insulin degludec FlexTouch 100 units/mL [3mL] See Instruct ions, # 15 mL, 2 total refill(s ), Hard Stop Discont inued 04/21/2024 15.0 Ambulat ory Pharmac y Insulin Lispro 25U/mL + Insulin Lispro Protamine 75 Units/mL, Injection, Pen Injector Do not drink alcohol. Take or use exactly as directed .refrige rate 07/29/2024 [id number] 3 [address] [place] [address] Tima PHELPS [facility] insulin lispro-insu saqib lispro protamine 25 units-75 units/mL subcutaneou s suspension INJECT 40 UNITS SUB-CUTA NEOUSLY WITH BREAKFAS T AND DINNER DIRECTED , # 75 mL, 3 total refill(s ), Acute Complet ed 05/25/2023 75.0 Ambulat ory Pharmac y isosorbide mononit ER (UD) 30 MG PO TB24 Do not drink alcohol. Take or use exactly as directed .Swallow whole. Active 11/03/2024 [id number] 4 2023 90 [facility] Tima PHELPS ([facility]) isosorbide mononitrate 30 mg oral tablet, extended release TAKE ONE TABLET BY MOUTH EARLY EVERY MORNING BEFORE BREAKFAS T, # 90 EA, 1 total refill(s ), Acute Complet ed 08/19/2023 90.0 Ambulat ory Pharmac y isosorbide mononitrate ER 30 mg/24 hour tablet See Instruct ions, Oral, # 90 EA, 1 total refill(s ), Hard Stop Oral (given by mouth) Ordered 05/25/2025 90.0 Ambul at ory Pharmac y isosorbide mononitrate ER 30 mg/24 hour tablet See dose instruct ions in comments , # 90 EA, 1 total refill(s ), Acute Discont inued 11/06/2023 90.0 Ambulat ory Pharmac y Lantus SoloStar glargine 100 units/mL [3mL] See Instruct ions, # 15 mL, 2 total refill(s ), Hard Stop, JAMESON Discont inued 06/02/2024 15.0 Ambulat ory Pharmac y Lantus SoloStar glargine 100 units/mL [3mL] See Instruct ions, # 15 mL, 2 total refill(s ), Hard Stop Ordered 06/01/2025 15.0 Ambul at ory Pharmac y LEVOCETIRIZ INE DIHYDROCHLO RIDE (LEVOCETIRI ZINE DIHYDROCHLO RIDE), 5 MG, TABLET, ORAL, [address] [place],, 90 ea. BOTTLE Active [id number] 4 2023 90 Pharmac y Data Transac tion Service Facilit y LEVOCETIRIZ INE DIHYDROCHLO RIDE (LEVOCETIRI ZINE DIHYDROCHLO RIDE), 5 MG, TABLET, ORAL, [address],, 90 ea. BOTTLE Cancele d [id number] : 2023 0 Pharmac y Data Transac tion Service Facilit y LEVOCETIRIZ INE DIHYDROCHLO RIDE (LEVOCETIRI ZINE DIHYDROCHLO RIDE), 5 MG, TABLET, ORAL, [employer] [facility],, 90 ea. BOTTLE Cancele d [id number] : 2022 0 Pharmac y Data Transac tion Service Facilit y LOSARTAN/HC TZ 100 MG-25 MG ORAL TAB Be careful if taking OTCs.Russel id exposure to sun.Take or use exactly as directed .Do not take if . Active 11/03/2024 [id number] 4 [address] [place] [address] Tima PHELPS ([facility] [place]) metFORMIN XR 500 mg/24 hour tablet See Instruct ions, # 360 EA, 1 total refill(s ), Acute Complet ed 05/27/2023 360.0 Ambulat ory Pharmac y metFORMIN XR 500 mg/24 hour tablet 500 mg, Oral, BID, # 180 EA, 0 total refill(s ), Hard Stop Oral (given by mouth) Discont inued 04/19/2024 180.0 Ambulat ory Pharmac y metFORMIN XR 500 mg/24 hour tablet 1000 mg, Oral, BID, # 360 EA, 1 total refill(s ), Hard Stop Oral (given by mouth) Ordered 04/14/2025 360.0 Ambul at ory Pharmac y metoprolol tartrate 25 mg oral tablet TAKE ONE TABLET TWICE DAILY, # 180 EA, 2 total refill(s ), Acute Complet ed 05/15/2023 180.0 Ambulat ory Pharmac y metoprolol tartrate 25 mg tablet See dose instruct ions in comments , # 180 EA, 1 total refill(s ), Acute Complet ed 08/19/2023 180.0 Ambulat ory Pharmac y MONTELUKAST (U/D) 10 MG ORAL TAB Take or use exactly as directed . Active 11/03/2024 [id number] 4 [address] [place] [address] Tima PHELPS ([facility]) MONTELUKAST (U/D) 10 MG ORAL TAB Take or use exactly as directed . Active 09/29/2024 [id number] 4 2023 90 [employer] Tima PHELPS ([facility] [place]) montelukast 10 mg tablet See Instruct ions, Oral, # 90 EA, 1 total refill(s ), Hard Stop Oral (given by mouth) Ordered 05/25/2025 90.0 Ambul at ory Pharmac y montelukast 10 mg tablet See Instruct ions, # 90 EA, 1 total refill(s ), Hard Stop Discont inued 04/12/2024 90.0 Ambulat ory Pharmac y MONTELUKAST SODIUM (MONTELUKAS T SODIUM), 10 MG, TABLET, ORAL, [employer], 1000 ea. BOTTLE Cancele d [id number] : 2023 0 Pharmac y Data Transac tion Service Facilit y needle pen 31g 8mm USE WITH INSULIN (HUMALOG 75/25) INJECTIO NS TWICE DAILY, # 200 EA, 1 total refill(s ), Acute Complet ed 02/25/2023 200.0 Ambulat ory Pharmac y needle pen 31g 8mm [100EA] See Instruct ions, # 100 EA, 1 total refill(s ), Hard Stop Ordered 04/14/2025 100.0 Ambul at ory Pharmac y needle pen 31g 8mm [100EA] See Instruct ions, # 200 EA, 3 total refill(s ), Acute Complet ed 09/10/2023 200.0 Ambulat ory Pharmac y pantoprazol e 40 mg oral delayed release tablet TAKE ONE TABLET BY MOUTH EARLY EVERY MORNING BEFORE BREAKFAS T, # 90 EA, 1 total refill(s ), Acute Discont inued 01/21/2023 90.0 Ambulat ory Pharmac y pantoprazol e EC 40 mg tablet See Instruct ions, Oral, # 90 EA, 1 total refill(s ), Hard Stop Oral (given by mouth) Discont inued 08/18/2024 90.0 Ambulat ory Pharmac y pantoprazol e EC 40 mg tablet See Instruct ions, # 90 EA, 1 total refill(s ), Hard Stop Ordered 08/08/2025 90.0 Ambul at ory Pharmac y Polyethylen e Glycol 3350 17g Powder for solution, Oral Take or use exactly as directed .Dilute before taking. Active 11/03/2024 [id number] 4 [address] [place] [address] Tima PHELPS ([facility]) polyethylen e glycol 3350 suspension [510g] See Instruct ions, 0, # 510 g, 1 total refill(s ), Hard Stop Ordered 11/03/2024 510.0 Ambul at ory Pharmac y PROAIR (BRAND) 90 MCG INH HFAA [8.5 GM] Take or use exactly as directed .Obtain advice for OTCs.Andrea juan.For inhalati on. Active 11/03/2024 [id number] 4 [address] [place] [address] Tima PHELPS ([facility] [place]) SULFAMETHOX AZOLE-TRIME THOPRIM (SULFAMETHO XAZOLE/TRIM ETHOPRIM), 800-160MG, TABLET, ORAL, AUROBINDO PHARM, 500 ea. BOTTLE Active [id number] 4 2023 10 Pharmac y Data Transac tion Service Facilit y SULFAMETHOX AZOLE-TRIME THOPRIM (SULFAMETHO XAZOLE/TRIM ETHOPRIM), 800-160MG, TABLET, ORAL, AUROBINDO PHARM, 500 ea. BOTTLE Active [id number] 4 2023 10 Pharmac y Data Transac tion Service Facilit y SULFAMETHOX AZOLE-TRIME THOPRIM (SULFAMETHO XAZOLE/TRIM ETHOPRIM), 800-160MG, TABLET, ORAL, AUROBINDO PHARM, 500 ea. BOTTLE Active [id number] 4 2023 14 Pharmac y Data Transac tion Service Facilit y triamcinolo ne 0.1% cream [15g] See Instruct ions, # 30 g, 1 total refill(s ), Hard Stop Discont inued 03/23/2024 30.0 Ambulat ory Pharmac y Triamcinolo ne Acetonide (Triamcinol one Acetonide Eq.) Cream .1% Topical For external use. Active 11/03/2024 [id number] 4 2023 30 [facility] Tima PHELPS ([facility] [place]) Trulicity Pen 0.75 mg/0.5 mL [4EA=2mL] See dose instruct ions in comments , # 2 mL, 10 total refill(s ), Acute Discont inued 07/02/2023 2.0 Ambulat ory Pharmac y Trulicity Pen 1.5 mg/0.5 mL [4EA=2mL] See Instruct ions, # 6 mL, 3 total refill(s ), Hard Stop Notes: refriger ate Complet ed 07/01/2024 6.0 Ambulat ory Pharmac y Trulicity Pen 1.5 mg/0.5 mL [4EA=2mL] See Instruct ions, # 2 mL, 2 total refill(s ), Hard Stop, JAMESON Notes: refriger ate Ordered 08/15/2025 2.0 Ambul at ory Pharmac y Trulicity Pen 3 mg/0.5 mL [4EA=2mL] See Instruct ions, # 2 mL, 11 total refill(s ), Hard Stop Notes: refriger ate Complet ed 07/29/2024 2.0 Ambulat ory Pharmac y Trulicity Pen 4.5 mg/0.5 mL [4EA=2mL] See Instruct ions, # 2 mL, 5 total refill(s ), Hard Stop Notes: refriger ate Ordered 09/12/2025 2.0 Ambul at ory Pharmac y U-300 (conc) Toujeo Max glargine 300 units/mL [3mL] 30 unit(s), SubCutan eous, Daily, # 9 mL, 1 total refill(s ), Hard Stop SubCut aneous (under the skin) Discont inued 04/22/2024 9.0 Ambulat ory Pharmac y Allergies, Adverse Reactions, Alerts Combined list of allergies from Department of Defense and Veterans Affairs facilities. It does not include entries that were removed or entered in error. Substance Category Reaction Severity Reaction type Status Date Reported Comments Source No Known Allergies Drug allergy (disorder) active 05/13/2006 [facility] Tima PHELPS ([facility]) Immunizations Combined list of available immunizations from the Department of Defense and Veterans Affairs facilities. Immunization Series Date Given Administered By Site Reaction Lot Number CVX Code Drug Car Lot Attendant Status Comments Source tetanus-dipht h toxoids (Td) adult/adol 2021 zzRig ht Arm [id number] sanofi pasteur complet ed tetanus-d iphth toxoids (Td) adult/ado l 01/29/22 Given Ambulat ory Pharmac y tetanus and diphtheria toxoids, adsorbed, preservative free, for adult use (2 Lf of tetanus toxoid and 2 Lf of diphtheria toxoid) 1 2021 Unknown, Provider [id number] 09 Sanofi Pasteur ([facility]) complet ed tetanus and diphtheri a toxoids, adsorbed, preservat mary jane free, for adult use (2 Lf of tetanus toxoid and 2 Lf of diphtheri a toxoid) DoD COVID-19, mRNA, LNP-S, PF, 30 mcg/0.3 mL dose, alka-sucrose 2021 LIZBETH, [email or web address] [place] (PFR) Not Given COVID-19, mRNA, LNP-S, PF, 30 mcg/0.3 mL dose, alka-sucr ose DoD zoster vaccine, inactivated 2021 Andres Arm [id number] GlaxoSmithKli ne complet ed zoster vaccine, inactivat ed 11/11/21 Given Ambulat ory Pharmac y zoster vaccine recombinant 1 2021 Unknown, Provider [id number] [facility] ([facility]) complet ed zoster vaccine recombina nt DoD zoster vaccine, inactivated 2021 zThanh ht Arm [id number] 187 GlaxoSmithKli ne complet ed zoster vaccine, inactivat ed 08/30/21 Given Ambulat ory Pharmac y zoster vaccine recombinant 1 2021 Unknown, Provider [id number] [employer] (SK) complet ed zoster vaccine recombina nt DoD tetanus, diphtheria, acellular pertu is 2011 Harjeet Arm [id number] 115 GlaxoSmithKli ne complet ed tetanus, diphtheri a, acellular pertussis 02/04/12 Given Ambulat ory Pharmac y tetanus toxoid, reduced diphtheria toxoid, and acellular pertu is vaccine, adsorbed 3 2011 Unknown, Provider [id number] 115 Smithine (SKB) complet ed tetanus toxoid, reduced diphtheri a toxoid, and acellular pertussis vaccine, adsorbed DoD zoster vaccine live 2010 TRANSCR IBED 121 Merck & Company Inc complet ed zoster vaccine live 06/09/11 Given Ambulat ory Pharmac y influenza virus vaccine,split 2005 zzLef t Arm [id number] 15 GlaxoSmithKli ne complet ed influenza virus vaccine,s plit 07/23/06 Given Ambulat ory Pharmac y influenza virus vaccine, split virus (incl. purified surface antigen)-reti red CODE 1 2005 Unknown, Provider [id number] 15 SmithKline (SKB) complet ed influenza virus vaccine, split virus (incl. purified surface antigen)- retired CODE DoD influenza virus vaccine,split 2004 zzLef t Arm [id number] 15 sanofi pasteur complet ed influenza virus vaccine,s plit 08/06/05 Given Ambulat ory Pharmac y influenza virus vaccine, split virus (incl. purified surface antigen)-reti red CODE 1 2004 Unknown, Provider [id number] 15 Sanofi Pasteur ([facility]) complet ed influenza virus vaccine, split virus (incl. purified surface antigen)- retired CODE DoD influenza virus vaccine, whole virus 2002 zzLef t Arm [id number] 16 sanofi pasteur complet ed influenza virus vaccine, whole virus 05/30/03 Given Ambulat ory Pharmac y influenza virus vaccine,split 2002 [id number] 15 sanofi pasteur complet ed influenza virus vaccine,s plit 05/30/03 Given Ambulat ory Pharmac y pneumococcal polysaccharid e, 23 valent 2002 zzLef t Arm [id number] 33 Merck & Company Inc complet ed pneumococ jose antonio polysacch aride, 23 valent 05/30/03 Given Ambulat ory Pharmac y influenza virus vaccine, whole virus 1 2002 Unknown, Provider [id number] 16 Sanofi Pasteur ([facility]) complet ed influenza virus vaccine, whole virus DoD pneumococcal polysaccharid e vaccine, 23 valent 1 2002 Unknown, Provider [id number] 33 Merck (MSD) complet ed pneumococ jose antonio polysacch aride vaccine, 23 valent DoD influenza virus vaccine,split 2001 [id number] 15 sanofi pasteur complet ed influenza virus vaccine,s plit 06/17/02 Given Ambulat ory Pharmac y influenza virus vaccine, whole virus 2001 zzLef t Arm [id number] 16 sanofi pasteur complet ed influenza virus vaccine, whole virus 06/17/02 Given Ambulat ory Pharmac y influenza virus vaccine, whole virus 1 2001 Unknown, Provider [id number] 16 Sanofi Pasteur ([facility]) complet ed influenza virus vaccine, whole virus DoD tetanus-dipht h toxoids (Td) adult/adol 2000 Harjeet abernathy Arm [id number] complet ed tetanus-d iphth toxoids (Td) adult/ado l 12/15/00 Given Ambulat ory Pharmac y tetanus and diphtheria toxoids, adsorbed, preservative free, for adult use (2 Lf of tetanus toxoid and 2 Lf of diphtheria toxoid) 1 2000 Unknown, Provider [id number] () complet ed tetanus and diphtheri a toxoids, adsorbed, preservat mary jane free, for adult use (2 Lf of tetanus toxoid and 2 Lf of diphtheri a toxoid) [facility] Encounters Combined list of: 1) Encounters from Department of Veterans Affairs facilities going backup to the last 18 months, not all VA inpatient encounters are included; 2) Encounters from the Department of Defense facilities going backup to 280 months. Location Location Details Encounter Type Encounter Number Reason For Visit Attending Provider ADM Date DC Date Status Disposition Source [address] [place] [address] Tima PHELPS [facility]Sco tt [facility] Fam Res Tm Green) OUTPATIENT [id number] ekg [address] 10/25 Released w/o Limitations [address] [place] [address] Tima PHELPS [facility])(S [facility] Fam Res Tm Green) [address] [place] [address] Tima PHELPS [facility])(Sdo tt [facility] FAMRES Tm Blue) TELE CONSULT [id number] MARIO VILLARREAL 02/[address] [place] [address] Tima PHELPS [facility]S [facility] FAMRES Tm Blue) [address] [place] [address] Tima PHELPS [facility])(Sco tt [facility] FAMRES Tm Blue) TELE CONSULT [id number] Rx Request MARIO CARRERO 02/[address] [place] [address] Tima PHELPS [facility])(S [facility] FAMRES Tm Blue) [address] [place] [address] Tima PHELPS [facility])(Sco tt Internal Medicine Tm) TELE CONSULT [id number] labwork DIMA HARO 05/[address] [place] [address] Tima PHELPS [facility])(S cott Interna l Medicin e Tm) [address] [place] [address] Tima PHELPS [facility])(Sco tt Internal Medicine Tm) TELE CONSULT [id number] lab request DIMA HARO P 05/[address] [place] [address] Group Tima PHELPS [facility])(S cott Interna l Medicin e Tm) [address] [place] [address] Tima Ethan [facility])([facility] Internal Medicine ) OUTPATIENT [id number] med refill JOSSE, ASSY 05/16 Released w/o Limitations [address] [place] [address] Tima PHELPS [facility])(S cott Interna l Medicin e Tm) [facility] Tima Ethan [facility])([facility] Internal Medicine ) TELE CONSULT [id number] elevate d a1c JOSSE, ASSY 05/[address] [place] [address] Tima PHELPS [facility]S cott Interna l Medicin e Tm) [address] [place] [address] Tima Ethan [facility])([facility] ) TELE CONSULT [id number] results DIMA HARO P 06/[address] [place] [address] Tima Ethan [facility]S cott Interna l Medicin e Tm) [facility])([facility] ) TELE CONSULT [id number] med refill DIMA HARO P 06/[address] [place] [address] Group Tima PHELPS [facility]S cott Interna l Medicin e Tm) [facility] Tima PHELPS [facility])([facility] ) TELE CONSULT [id number] med refill DIMA HARO P 07/[address] [place] [address] Tima PHELPS [facility])(S cott Interna l Medicin e Tm) [facility] Tima Ethan [facility])([facility] ) TELE CONSULT [id number] Medicat ion DIMA HARO P 07/03 [facility])(S cott Interna l Medicin e Tm) [facility])([facility] ) TELE CONSULT [id number] TSH JOSSE, ASSY 12/[address] [place] [address] [facility])(S cott Interna l Medicin e Tm) [facility])([facility] ) TELE CONSULT [id number] Rx refill NADIA GALAN 12/[address] [place] [address] [facility])([facility] cott Interna l Medicin e Tm) [address] [place] [address] [facility])([facility] ) OUTPATIENT [id number] med renewal - f/uEMILY SONI 02/05 Released w/o Limitations [address] [place] [address] [facility])([facility] cott Interna l Medicin e Tm) [address] [place] [address] [facility])([facility] ) TELE CONSULT [id number] EMILY Otoole 02/[address] [place] [address] [facility])([facility] cott Interna l Medicin e Tm) [address] [place] [address] [facility])([facility] ) TELE CONSULT [id number] med NADIA Nelson 05/[address] [place] [address] [facility])([facility] cott Interna l Medicin e Tm) [address] [place] [address])([facility] ) OUTPATIENT [id number] follow- up diabete s, HTN, HLP, CAD BARCUS, ALICIA L 05/27 Released w/o Limitations [address] [place] [address])([facility] cott Interna l Medicin e Tm) [address] [address])([facility] ) TELE CONSULT [id number] SHANICE Qureshi 03/[address] [place] [address] [facility])([facility] cott Interna l Medicin e Tm) [address] [place] [address])([facility] Managemen t) TELE CONSULT [id number] Notes Entered by: NIKITA FRITZ 22 Mar 2013 1531 ------- ------- ------- ------- -- Pt is a 72 y/o M with hx of diab showing due for labs. NIKITA FRITZ 03/[address] [place] [address] [facility])(S cott Disease Managem ent) Procedures Combined list of: 1) Procedures from Department of Veterans Affairs facilities [facility], not all [facility] non-surgical procedures are included; 2) All procedures from the Department of Defense facilities. Procedure Procedure Type Code Date Perfomer Comments Sourc e TELE ASSESS & MGT SRV PROV QUAL NONPHYS HLTH CARE PRO TO EST PAT,PARENT,GUARD NOT ORIG REL ASSESS & MGT SRV PROV W/IN PREV 7 DAYS NOR LEAD ASSESS & MGT SRV/PX W/IN NXT 24H/SOON APT; 11-20 MIN MED DIS 2012 [facility] ELECTROCARDIOGRAM, ROUTINE ECG WITH AT LEAST 12 LEADS; WITH INTERPRETATION AND REPORT 2004 [facility] OPHTHALMOLOGICAL SERVICES: MEDICAL EXAMINATION AND EVALUATION, WITH INITIATION OR CONTINUATION OF DIAGNOSTIC AND TREATMENT PROGRAM; INTERMEDIATE, ESTABLISHED PATIENT 2003 [facility] DETERMINATION OF REFRACTIVE STATE 2003 [facility] OPHTHALMOLOGICAL SERVICES: MEDICAL EXAMINATION AND EVALUATION WITH INITIATION OF DIAGNOSTIC AND TREATMENT PROGRAM; INTERMEDIATE, NEW PATIENT 2003 [facility] CARDIOVASCULAR STRESS TEST USING MAXIMAL OR SUBMAXIMAL TREADMILL OR BICYCLE EXERCISE,CONTINUOUS ELECTROCARDIOGRAPHIC MONITORING,AND/OR PHARMACOLOGICAL STRESS;W SUPERVISION,INTERPRETAT ION AND REPORT 2002 [facility] CARDIOVASCULAR STRESS TEST USING MAXIMAL OR SUBMAXIMAL TREADMILL OR BICYCLE EXERCISE,CONTINUOUS ELECTROCARDIOGRAPHIC MONITORING,AND/OR PHARMACOLOGICAL STRESS;W SUPERVISION,INTERPRETAT ION AND REPORT 2002 [facility] FUNDUS PHOTOGRAPHY WITH INTERPRETATION AND REPORT 2002 [facility] OPHTHALMOLOGICAL SERVICES: MEDICAL EXAMINATION AND EVALUATION, WITH INITIATION OR CONTINUATION OF DIAGNOSTIC AND TREATMENT PROGRAM; COMPREHENSIVE, ESTABLISHED PATIENT, 1 OR MORE VISITS 2002 [facility] OPHTHALMOLOGICAL SERVICES: MEDICAL EXAMINATION AND EVALUATION, WITH INITIATION OR CONTINUATION OF DIAGNOSTIC AND TREATMENT PROGRAM; INTERMEDIATE, ESTABLISHED PATIENT 2002 [facility] LAPAROSCOPIC CHOLECYSTECTOMY 1993 [facility] Non-Physician Phone Call To Pt/Provider Intermed (11-20 min) Non-Physician Phone Call To Pt/Provider Intermed (11-20 min) [phone] NIKITA FRITZ [facility] Electrocardiogram Electrocardiogram [id number] 10/[address] [facility] No data available for this section Ambulatory Pharmacy Social History Combined list of available smoking, tobacco, and other social history from Department of Defense and Veterans Affairs facilities. Social History Type Response Date Comment Sour e Tobacco smoking status NHIS LIFETIME NON-USER OF TOBACCO 04/09/2017 [facility] This section is an empty social history section. [facility] Assessment and Plan Combined list of future care activities from Department of Defense and Veterans Affairs facilities (e.g., assessment and plan notes, appointments, orders, and referrals). Additional future care activities may be listed in the Plan of Care section. Result Assessment and Plan Date Source Assessment and Plan No data available for this section 09/27/2024 [facility]ulatory [facility] Functional Status Combined list of recent functional and cognitive assessments recorded at Department of Defense and [facility] ([facility] Functional [place] Measurement (FIM) Scale: 1 = Total Assistance (Subject = 0% +), 2 = Maximal Assistance (Subject = 25% +), 3 = Moderate Assistance (Subject = 50% +), 4 = Minimal Assistance (Subject = 75% +), 5 = Supervision, 6 = Modified Flathead (Device), 7 = Complete Flathead (Timely, Safely). Assessment Date/Time Source Assessment Type Assessment Skill Assessment Score Assessment Details No data available for this section
--- OUTSIDE RECORDS SUMMARY | 2024-09-27 06:38 | XMS_ITS | Referral Summary ---
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 Cardiology [address] [place] [address] ProviderElla MD 09/20/2024 10:30 AM COUNTER STITCHER Office Visit [facility] Orthopaedic Surgery [address] [facility] 1st Floor [address] [place] [address] Bradley Griffin MD Spinal stenosis, lumbar region, with neurogenic claudication (Primary Dx); Lumbar radiculopathy 09/16/2024 Orders Only [facility] Cardiology [address] [facility] [address] [place] [address] Malachi Braden MD 09/09/2024 Telephone [facility] Surgery [address] [place] [address] Mckayla Thompson 09/09/2024 1:30 PM COUNTER STITCHER Infusion [facility] Cancer Center at [facility] [address] [place] [phone] Malignant neoplasm of urinary bladder, unspecified site (HCC) (Primary Dx) 09/08/2024 Telephone [facility] Surgery [address] [place] [address] Domenica Arenas EMT 09/06/2024 Documentation [facility] Surgery [address] [place] [address] Mckayla Thompson 09/06/2024 Documentation [facility] Surgery [address] [place] [address] Mckayla Thompson 09/05/2024 Telephone [facility] Cardiology [address] [facility] [address] [place] [address] Malachi Braden MD Test Results (BNP) 09/05/2024 Telephone [facility] Family Medicine [address] [facility] [address] [place] [address] Neema Garay PA 09/05/2024 Telephone [facility] Medicine [address] [place] [address] Neema Garay PA Medication Request 09/05/2024 Orders Only [facility] [address] [place] [address] ProviderElla MD 09/02/2024 Telephone [facility] Medicine [address] [place] [address] Neema Garay PA 09/02/2024 Telephone [facility] Cardiology [address] [facility] [address] [address] Malachi Braden MD media management 09/01/2024 Telephone [facility] [address] [place] [address] Neema Garay PA 09/01/2024 Telephone [facility] Cardiology [address] [facility] [address] [address] Marquise Joseph MD 09/01/2024 Orders Only [facility] Medicine [address] [place] [address] Neema Garay PA Chronic congestive heart failure, unspecified heart failure type (HCC) (Primary Dx); Acute cough 08/31/2024 Orders Only [facility] Cardiology [address] [facility] [address] [place] [address] Provider, MD Ella 08/31/2024 Telephone [facility] Medicine [address] [place] [address] Neema Garay PA 08/30/2024 Telephone [facility] Medicine [address] [place] [address] Neema Garay PA 08/30/2024 Telephone [facility] Medicine [address] [place] [address] Neema Garay PA 08/30/2024 Orders Only [facility] Medicine [address] [place] [address] Neema Garay PA Acute cough (Primary Dx); SOB (shortness of breath) 08/30/2024 Orders Only [facility] Cardiology [address] [facility] [address] [address] ProviderElla MD 08/29/2024 5:00 PM COUNTER STITCHER Office Visit [facility] [address] [place] [address] Road [address] [place] [address] Neema Garay PA Acute cough (Primary Dx); COVID; Bilateral leg edema; Chronic congestive heart failure, unspecified heart failure type (HCC); BMI 27.0-27.9,adult 08/28/2024 Nurse Triage [address] [place] [address] Neema Garay PA 08/24/2024 Telephone [facility] Advanced [facility] ([facility] Urology [address] [place] [address] Advanced [facility] 11th [place] [address] [place] [address] Misael Riggs 08/24/2024 Telephone [facility] Cardiology [address] [facility] [address] [address] Marquise Joseph MD report EKG 08/19/2024 11:00 AM COUNTER STITCHER Infusion [address] [place] [address] Malignant neoplasm of urinary bladder, unspecified site (HCC) (Primary Dx) 08/15/2024 Telephone [facility] Medicine [address] [place] [address] Neema Garay PA 08/12/2024 11:00 AM COUNTER STITCHER Infusion [facility] Cancer Center at [address] [place] [address] Malignant neoplasm of urinary bladder, unspecified site (HCC) (Primary Dx) 08/08/2024 Telephone [facility] Cardiology [address] [place] [address] [address] Marquise Joseph MD 08/05/2024 11:00 AM COUNTER STITCHER Infusion [facility] at [address] [place] [address] Malignant neoplasm of urinary bladder, unspecified site (HCC) (Primary Dx) 08/04/2024 11:30 AM COUNTER STITCHER Ancillary Procedure [facility] Cardiology [address] [place] [address] [address] Acute on chronic diastolic heart failure (CMS/HCC) (HCC) 08/04/2024 11:00 AM COUNTER STITCHER Office Visit [facility] Cardiology [address] [place] [address] [address] Marquise Joseph MD Acute on chronic diastolic heart failure (CMS/HCC) (HCC) (Primary Dx) 08/02/2024 Telephone [facility] Advanced Medicine ([facility]) [facility]rology [address] [place] [address] 11th [place] [address] [place] [address] Misael Riggs 07/29/2024 11:00 AM COUNTER STITCHER Infusion [facility] Cancer [place] at [address] [place] [address] Malignant neoplasm of urinary bladder, unspecified site (HCC) (Primary Dx) 07/22/2024 1:00 PM COUNTER STITCHER Infusion [facility] at [address] [place] [address] Malignant neoplasm of urinary bladder, unspecified site (HCC) (Primary Dx) 07/06/2024 Telephone [facility] Surgery [address] [place] [address] Chayito Knight CMA 07/06/2024 Telephone [facility] Cardiology [facility] [address] [place] [address] Malachi Braden MD staff message 07/04/2024 Telephone [facility] Cardiology [facility] [address] [place] [address] Malachi Braden MD staff message 07/01/2024 2:00 PM COUNTER STITCHER Office Visit [facility] Cardiology [facility] [address] [place] [address] Kostas Martinez MD Permanent atrial fibrillation (CMS/HCC) (HCC) (Primary Dx); NSVT (nonsustained ventricular tachycardia) (HCC); Gross hematuria; Atrial fibrillation with slow ventricular response (CMS/HCC) (HCC) from Last 3 Months Allergies Active Allergy Reactions Criticality Noted Date Comments Gabapentin Other (See comments) Low 04/02/2023 Unable to recall reaction. Was told by prescribing MD not to take after reaction reported. Medications pybdpmid-yas-PR-l ycopen-lutein 0.4-300-250 mg-mcg-mcg tablet Rx: Multivitamin Adults 50+ - Tablet take 1 tab in AM Active Sure Comfort Pen Needle 31 gauge x 5/16 needle 02/27/20 22 Active FreeStyle Precision Kevin Strips strip as directed 12/30/19 23 Active FreeStyle [place] Lite kit 12/30/19 23 Active folic acid (FOLVITE) 400 mcg tablet Take 2.5 tablets (1 mg total) by mouth water and gas helper before breakfast 90 tablet 1 11/04/19 24 [...] glucose sensor (FREESTYLE ABHIJEET 14 DAY SENSOR MISC) Active latanoprost (XALATAN) 0.005 % ophthalmic solution 05/13/20 24 Active isosorbide mononitrate ER (IMDUR) 30 mg 24 hr tabletIndications :prevention of anginal pain in coronary artery disease Take 1 tablet (30 mg total) by mouth water and gas helper before breakfast 90 tablet 1 05/25/20 24 Active montelukast (SINGULAIR) 10 mg tablet Take 1 tablet (10 mg total) by mouth nightly 90 tablet 1 05/25/20 24 Active amLODIPine (NORVASC) 5 mg tablet Take 1 tablet (5 mg total) by mouth daily 90 tablet 1 05/25/20 24 Active finasteride (PROSCAR) 5 mg tablet Take 1 tablet (5 mg total) by mouth water and gas helper before breakfast 90 tablet 1 05/25/20 24 [...] 1 tablet (40 mg total) by mouth water and gas helper before breakfast 90 tablet 1 08/08/20 24 [...] as needed for wheezing 1 each 09/01/19 Active benzonatate (TESSALON) 100 mg capsuleIndication s:Cough [...] a day 60 capsule 2 09/20/19 25 025 Active Additional Information Patient not taking.Reported on [...] 08/30/2024 Assessment & Plan (08/30/2024 4:09 PM COUNTER STITCHER): Patient is COVID positive today COVID 08/30/2024 Assessment & Plan (08/30/2024 4:07 PM COUNTER STITCHER): Let pt know the newest CDC recommendations [...] 08/30/2024 Assessment & Plan (08/30/2024 4:09 PM COUNTER STITCHER): Patient has bilateral lower leg edema with known congestive heart failure history. It sounds like he is having more difficulty laying down. 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 Advised [...] bladder cancer. Continue per Dr. Armas at [facility] skilled nursing current use of anticoagulant Assessment & Plan (06/04/2024 10:04 PM CDT): Continue with [facility] for anticoagulation for his AFib BMI 27.0-27.9,adult 04/06/2024 Assessment & Plan (08/30/2024 4:09 PM COUNTER STITCHER): Weight/BMI is in healthy range. Continue healthy [...] 05/04/2023 Age-related hearing loss 05/04/2023 Pulmonary fibrosis ([facility]) 02/26/2023 Assessment & Plan (06/28/2023 8:17 PM COUNTER STITCHER): Continue per pulmonology Dr. Allen Chronic bilateral low back pain with right-sided sciatica 09/13/2022 Assessment & Plan (09/13/2022 7:53 PM COUNTER STITCHER): Patient has chronic back pain with pain [...] 08/24/2022 Assessment & Plan (08/24/2022 9:30 PM COUNTER STITCHER): Patient is complaining about leg pain bilaterally. The pain increases when legs hit the floor and then limit his ability to walk distances. 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 Will check arterial vascular studies and follow-up pending those results. Order was provided to patient for him to schedule at his convenience. Congestive heart failure ([facility]) 12/29/2021 Assessment & Plan (08/30/2024 4:09 PM COUNTER STITCHER): Patient has bilateral lower leg edema with known congestive heart failure history. It sounds like he is having more difficulty laying down. 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 Advised [...] assistance Assessment & Plan (06/28/2023 8:25 PM COUNTER STITCHER): Recent hospitalization for CHF. Strongly encouraged him [...] Lasix Assessment & Plan (08/24/2022 9:28 PM COUNTER STITCHER): Continue per Cardiology. Assessment & Plan (06/01/2022 8:52 PM CDT): Continue per Cardiology Assessment & Plan (12/29/2021 5:00 PM CDT): Patient requests refills of his Lasix. Will provide but encouraged to continue to follow with Cardiology as instructed Atrial fibrillation ([facility]) 09/09/2021 Assessment & Plan (06/04/2024 10:04 PM CDT): Cardio - Yemi Patient is on Eliquis, losartan hydrochlorothiazide, isosorbide [...] anticoagulation. Assessment & Plan (06/28/2023 8:15 PM COUNTER STITCHER): Continue per Dr. Braden Patient has CHF AFib CAD history hypertension hyperlipidemia and pulmonary hypertension. He is on Eliquis 5 mg b.i.d. for anticoagulation with his AFib. Tolerating his losartan hydrochlorothiazide 100/25, isosorbide ER 30 daily, metoprolol 25 b.i.d., amlodipine 5 and Lasix 40 Assessment & Plan (10/10/2021 9:46 PM COUNTER STITCHER): Continue per Cardio Assessment & Plan (09/18/2021 7:33 PM COUNTER STITCHER): Continue per Cardiology patient is on Eliquis Bilateral carotid artery stenosis 08/07/2021 Assessment & Plan (06/02/2023 3:09 PM CDT): Status post left CEA. Right ICA with stable moderate 50-69% stenosis. Continue risk factor modification with ASA, statin therapy in good blood pressure control. Follow-up in 6 months with repeat carotid duplex. Assessment & Plan (10/01/2022 4:35 PM COUNTER STITCHER): Impression: Patient has patent left internal carotid [...] duplex. Assessment & Plan (09/18/2021 7:38 PM COUNTER STITCHER): Left carotid endarterectomy is planned with Dr. dawkins. Assessment & Plan (08/12/2021 3:05 PM COUNTER STITCHER): Assessment: Symptomatic left high-grade stenosis. Plan: Based off his CT I have recommended carotid endarterectomy over TCAR. Risks benefits alternatives were discussed with the patient, risks included bleeding, infection, nerve injury, stroke and need for further surgery. He wished to proceed Assessment & Plan (08/07/2021 9:49 AM COUNTER STITCHER): Assessment/plan: I had a long discussion with [...] 07/18/2021 Assessment & Plan (09/18/2021 7:58 PM COUNTER STITCHER): Discussed with patient the pathophys behind the [...] bid dosing) Discussed referral to Ophthamology at [facility] -- Will first work on [...] artery disease of b ypass graft of table mountain heart with stable angina pectoris ([facility]) 10/31/2020 Assessment & Plan (06/04/2024 10:01 PM CDT): Continue per Cardiology. Patient is on Eliquis for AFib so not on an aspirin. He is on a statin Assessment & Plan (09/18/2021 7:33 PM COUNTER STITCHER): Continue per Cardiology. He is on a [...] 10/31/2020 Assessment & Plan (09/18/2021 7:33 PM COUNTER STITCHER): Continue per Urology. Continue Proscar Assessment & [...] 10:00 PM CDT): Diabetes is managed by [facility] Dr. Ram Assessment & Plan (06/01/2022 8:50 PM CDT): Stressed importance of continued A1c control to minimize the intermission coordinator effects of diabetes. Bring accuchecks to office when instructed to do so. Check A1c about every 3-6 months. Take medication as prescribed. Get annual eye exam. Encouraged LATANYA/Statin if able to tolerate. Encouraged weight control and encouraged diabetic diet and exercise. Managed by endocrinology at [facility] Assessment & Plan (09/18/2021 7:32 PM COUNTER STITCHER): Stressed importance of continued A1c control to minimize the intermission coordinator effects of diabetes. Bring accuchecks to office when instructed to do so. Check A1c about every 3-6 months. Take medication as prescribed. Get annual eye exam. Encouraged LATANYA/Statin if able to tolerate. Encouraged weight control and encouraged diabetic diet and exercise. Continue per Endocrinology at [facility] Assessment & Plan (05/13/2021 11:10 PM CDT): Stressed importance of continued A1c control to minimize the intermission coordinator effects of diabetes. Bring accuchecks to office when instructed to do so. Check A1c about every 3-6 months. Take medication as prescribed. Get annual eye exam. Encouraged LATANYA/Statin if able to tolerate. Encouraged weight control and encouraged diabetic diet and exercise. Continue per Endo. He may consider a change of provider as having difficulty getting supplies. Discussed Kathy Caceres NP in [place] as an option. He will consider. Assessment & Plan (01/10/2021 9:02 PM CDT): Stressed importance of continued A1c control to minimize the senior living effects of diabetes. Bring accuchecks to office [...] (04/25/2019): Added automatically from request for surgery [id number] HNP (herniated nucleus pulposus with myelopathy) , thoracic 02/11/2019 Overview (02/11/2019): Added automatically from request for surgery [id number] Abnormal stress test 03/05/2018 Overview (02/06/2019): Stress [...] resolved. Assessment & Plan (07/28/2021 10:18 AM COUNTER STITCHER): History of CVAs in the past. Has [...] of continued A1c control to minimize the senior living effects of diabetes. Bring accuchecks to office [...] Continue atorvastatin 20 Diabetes is managed by [facility] group Dr. Ram Assessment & Plan (04/17/2024 10:30 PM CDT): Stressed importance of continued A1c control to minimize the senior living effects of diabetes. Bring accuchecks to office [...] Atorvastatin. Assessment & Plan (06/28/2023 8:16 PM COUNTER STITCHER): Encouraged patient to follow low fat/low chol diet like the Mediterranean diet. Increase good fats in the diet. Increase exercise. Monitor labs as needed. Continue atorvastatin 20 Assessment & Plan (06/02/2023 3:10 PM CDT): Stable continue Lipitor and metformin. Assessment & Plan (10/01/2022 4:37 PM COUNTER STITCHER): Impression: Chronic diabetes mellitus with good glucose control. Plan: Continue insulin Assessment & Plan (06/01/2022 8:51 PM CDT): Stressed importance of continued A1c control to minimize the senior living effects of diabetes. Bring accuchecks to office when instructed to do so. Check A1c about every 3-6 months. Take medication as prescribed. Get annual eye exam. Encouraged LATANYA/Statin if able to tolerate. Encouraged weight control and encouraged diabetic diet and exercise. Managed by the endocrinology group [facility]. Encouraged patient to follow low fat/low chol diet like the Mediterranean diet. Increase good fats in the diet. Increase exercise. Monitor labs as needed. Continue atorvastatin Assessment & Plan (04/12/2022 7:55 PM CDT): Stressed importance of continued A1c control to minimize the intermission coordinator effects of diabetes. Bring accuchecks to office [...] Lipitor Assessment & Plan (09/18/2021 7:31 PM COUNTER STITCHER): Encouraged patient to follow fat/low chol diet [...] of continued A1c control to minimize the senior living effects of diabetes. Bring accuchecks to office when instructed to do so. Check A1c about every 3-6 months. Take medication as prescribed. Get annual eye exam. Encouraged LATANYA/Statin if able to tolerate. Encouraged weight control and encouraged diabetic diet and exercise. Endocrinology and [facility] manages his diabetes. Continue losartan hydrochlorothiazide 100/25, isosorbide XR 30, amlodipine 5 and Lasix 20 Assessment & Plan (12/04/2023 12:54 PM CDT): Impression: Chronic and stable. Plan: Continue amlodipin, Hyzaar, isosorbide Assessment & Plan (06/28/2023 8:16 PM COUNTER STITCHER): Bp is stable/in acceptable range for any co-morbidities. Encouraged to limit sodium intake and exercise for weight control. Stressed importance of continued A1c control to minimize the senior living effects of diabetes. Bring accuchecks to office when instructed to do so. Check A1c about every 3-6 months. Take medication as prescribed. Get annual eye exam. Encouraged LATANYA/Statin if able to tolerate. Encouraged weight control and encouraged diabetic diet and exercise. Dr. Braden manages HTN Endo at [facility] manages his DM Assessment & Plan (06/02/2023 3:11 PM CDT): Stable continue amlodipine 5 mg. Assessment & Plan (12/28/2022 7:50 PM CDT): Bp is stable/in acceptable range for any co-morbidities. Encouraged to limit sodium intake and exercise for weight control. Continue losartan hydrochlorothiazide, metoprolol and amlodipine Assessment & Plan (10/01/2022 4:36 PM COUNTER STITCHER): Impression: Chronic hypertension. Plan: Continue Norvasc, Imdur, metoprolol, Hyzaar Assessment & Plan (08/24/2022 9:27 PM COUNTER STITCHER): Bp is stable/in acceptable range for any co-morbidities. Encouraged to limit sodium intake and exercise for weight control. Stressed importance of continued A1c control to minimize the senior living effects of diabetes. 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 Spinal stenosis after history of 2 surgeries. There is a fluid collection. In February recommended he see neurosurgery. Was referred but he was unable to keep this appointment. He prefers now a referral to neurosurgery at [facility]. Appointment placed will await recommendations. Will go [...] catheter present 08/15/2014 Deep vein thrombosis (DVT) ([facility]) 08/07/2014 Gastric reflux Assessment & Plan (09/18/2021 7:33 PM COUNTER STITCHER): Continue omeprazole Resolved Problems Problem Noted Date [...] for culture await sensitivity BMI 25.0-25.9,adult 06/28/2023 04/06/20 Assessment & Plan (02/14/2024 10:01 PM CDT): Weight/BMI is in healthy range. Continue healthy lifestyle to maintain. Assessment & Plan (01/11/2024 2:54 PM CDT): Weight/BMI is in healthy range. Continue healthy lifestyle to maintain. Assessment & Plan (06/28/2023 8:18 PM COUNTER STITCHER): Weight/BMI is in healthy range. Continue healthy [...] PCM, Dr. Rivas. BMI 26.0-26.9,adult 03/24/2023 06/28/20 Assessment & Plan (03/24/2023 11:28 AM CDT): [...] calf to get the correct size. Showed [employer] as how to order. If his [...] calf to get the correct size. Showed [employer] as how to order. If his [...] 09/13/202201/10 Assessment & Plan (09/13/2022 7:53 PM COUNTER STITCHER): atlida has chronic back pain with pain radiating [...] 23 Assessment & Plan (09/13/2022 7:53 PM COUNTER STITCHER): Weight/BMI is in healthy range. Continue healthy [...] 24 Assessment & Plan (10/01/2022 4:38 PM COUNTER STITCHER): Impression: Patient has a history of spinal [...] 01/11/2024 Assessment & Plan (10/14/2021 1:48 PM COUNTER STITCHER): Assessment/a: Left lower extremity symptomatic carotid stenosis [...] duplex. Assessment & Plan (10/10/2021 9:47 PM COUNTER STITCHER): Status post carotid endarterectomy. Patient tolerated procedure well. No s/s infection during the post-op period. . Keep followup with Dr Wolfe BMI 27.0-27.9,adult 09/16/2021 12/16/19 23 Assessment & Plan (08/24/2022 9:28 PM COUNTER STITCHER): Weight/BMI is in healthy range. Continue healthy lifestyle to maintain. Assessment & Plan (06/01/2022 8:51 PM CDT): Weight/BMI is in healthy range. Continue healthy lifestyle to maintain. Assessment & Plan (12/17/2021 2:01 PM CDT): Weight/BMI is in healthy range. Continue healthy lifestyle to maintain. Assessment & Plan (09/18/2021 7:50 PM COUNTER STITCHER): Weight/BMI is in healthy range. Continue healthy lifestyle to maintain. Assessment & Plan (09/16/2021 3:08 PM COUNTER STITCHER): Weight/BMI is in healthy range. Continue healthy lifestyle to maintain. Preoperative clearance 09/09/202108/24 Essential hypertension, benign 09/09/2021 12/29/2021 Atypical atrial flutter (CMS/HCC) 07/29/2021 06/04/2024 Assessment & Plan (08/07/2021 9:49 AM COUNTER STITCHER): Assessment/plan: Continue Eliquis. He is scheduled to undergo a cardioversion tomorrow. Mixed hyperlipidemia 07/29/2021 022 Assessment & Plan (08/12/2021 3:05 PM COUNTER STITCHER): Assessment/plan: Continue statin. Essential hypertension 07/29/202109/09 Assessment & Plan (08/12/2021 3:05 PM COUNTER STITCHER): Assessment/plan: Continue amlodipine Assessment & Plan (08/07/2021 9:49 AM COUNTER STITCHER): Assessment/plan: Continue amlodipine. BMI 27.0-27.9,adult 07/18/2021 09/16/19 Assessment & Plan (07/18/2021 1:27 PM COUNTER STITCHER): Weight/BMI is in healthy range. Continue healthy lifestyle to maintain. 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 Spinal stenosis after history of 2 surgeries. There is a fluid collection. In February recommended he see neurosurgery. Was referred but he was unable to keep this appointment. He prefers now a referral to neurosurgery at [facility]. Appointment placed will await recommendations. Will go ahead and make a referral for pain management so he is in the waiting process as may end up needing neurosurgery and pain management simultaneously. Diabetes mellitus 08/15/2014 01/10/2021 Immunizations Name Administration Dates Next Due Influenza, [...] 01/25/2017,02/04/2012 ZOSTER LIVE 06/09/2011 ZOSTER Recombinant 11/11/2021,08/30/2021 Social History Tobacco Use Types Packs/Day Years Used Date Smoking Tobacco: Former Cigarettes 1.1 26.7 0 03/30/1966 - 03/30/1986 Smokeless Tobacco: Never Tobacco Cessation:Counseling Given: Not Answered Alcohol Use Standard Drinks/Week Comments Yes 1 (1 standard drink = 0.6 oz pur e alcohol) rare [facility] Utilities Answer Date Recorded In the past 12 months has [employer], gas, oil, or water [employer] threatened to shut off services in your [...] often do you attend chur ch or zoroastrianism services? Never 04/04/2024 Do you belong to any clubs o r organizations such as judaism groups, unions, fraternal or athletic groups, or [...] any time in the past 12 m [facility], were you homeless or living in a custodial (including now)? No 04/04/2024 Personal Safety Answer Date Recorded Have you ever been in or are you currently in a harmful physical or emotional relationship or is someone making you feel afraid or unsafe? Denies 06/08/2024 Sex and Gender Information Value Date Recorded Sex Assigned at Not on file Legal Sex Male 8:56 PM COUNTER STITCHER Gender Identity Male 07/06/2024 6:10 PM COUNTER STITCHER Sexual Orientation Not on file Last Filed Vital Signs Vital Sign Reading Time Taken Comments Blood Pressure 110/58 09/26/2024 2:14 PM COUNTER STITCHER Pulse 50 09/26/2024 2:14 PM COUNTER STITCHER Temperature 36.7 C (98 F) 09/09/2024 1:26 PM COUNTER STITCHER Respiratory Rate 16 09/09/2024 1:26 PM COUNTER STITCHER Oxygen Saturation 96% 09/26/2024 2:14 PM COUNTER STITCHER Inhaled Oxygen Concentration - - Weight 89.5 kg (197 lb 6.4 oz) 09/26/2024 2:14 P M COUNTER STITCHER Height 175.9 cm (5' 9.25 ) 08/19/2024 1 1:10 AM COUNTER STITCHER w/o shoes Body Mass Index 28.94 08/19/2024 11:10 AM COUNTER STITCHER Plan of Treatment Not on file Medical Devices Implanted Type Area Curator Device Identifier Shelf Expiration Date Model / Serial / Lot Wire Wire N/A: Chest Spinal Graft Tech [id number] Magnifuse 10x1cm Graft Bone Demineralized Bone Matrix - [id number] - [id number] Implanted:Qty: 1 on 04/27/2019 by Tariq Kirk MD at [facility] N/A: Spine Lumbar Spinal Graft Tech 10/13/2020 [id number] / [id number] / Almanzar [facility] [id number] Actifuse Abx Resorbable; Scaffold; Osteostimulative ; Granule 1-2 - [id number] Implanted:Qty: 1 on 04/27/2019 by Tariq Kirk MD at [facility] N/A: Spine Lumbar [employer] 01/14/2021 [id number] / / [id number] [employer] [id number] - [id number] - [id number] Implanted:Qty: 1 on 04/27/2019 by Tariq Kirk MD at [facility] N/A: Spine Lumbar [employer] 03/10/2024 [id number] / [id number] / [place] Spine [id number] Macey 3 Mccoy Od6.5 Mm L55 Mm Polyaxial Spine Screw Bone Nonsterile - [id number] Implanted:Qty: 1 on 04/27/2019 by Tariq Kirk MD at [facility] N/A: Spine Lumbar Brenna Spine [id number] / / [place] Spine [id number] Macey 3 Mccoy 6.5mm 50mm Polyaxial Spine Screw Bone Nonsterile - [id number] Implanted:Qty: 1 on 04/27/2019 by Tariq Kirk MD at [facility] N/A: Spine Lumbar [employer]ine [id number] / / Brenna Spine [id number] Macey 3 Mccoy Od5.5 Mm L45 Mm Polyaxial Spine Screw Bone Nonsterile - [id number] Implanted:Qty: 3 on 04/27/2019 by Tariq Kirk MD at [facility] N/A: Spine Lumbar [employer]ine [id number] / / [employer] Spine [id number] Macey 3 Spine Peggy Spinal Titanium - [id number] Implanted:Qty: 11 on 04/27/2019 by Tariq Kirk MD at [facility] N/A: Spine Lumbar Brenna Spine [id number] / / [place] Spine [id number] Radius 6.5mm 600mm Pedicle Matt Spinal Vitallium - [id number] Implanted:Qty: 1 on 04/27/2019 by Tariq Kirk MD at [facility] N/A: Spine Lumbar [employer] [id number] / / [employer] Spine [id number] Macey 3 Mccoy Od5.5 Mm L55 Mm Polyaxial Cannulated Spine Screw Bone Nonsterile - [id number] Implanted:Qty: 2 on 04/27/2019 by Tariq Kirk MD at [facility] N/A: Spine Lumbar Brenna Spine [id number] / / Zannel Denys [id number] Vascu-Guard 8x.8cm Peripheral Patch Vascular Bovine Pericardium - [id number] Implanted:Qty: 1 on 10/01/2021 by Nash Wolfe MD at [facility] Left: Neck [employer] [id number] 05/23/2026 [id number] / / [id number] Procedures Procedure Name Priority Date/Time Associated Diagnosis Comments CARDIOLOGY DOCUMENT SCAN Routine 09/20/2024 3:02 PM COUNTER STITCHER COMPREHENSIVE METABOLIC PANEL Routine 09/16/2024 11:13 AM COUNTER STITCHER LIPID PANEL Routine 09/16/2024 11:13 AM COUNTER STITCHER CBC WITH AUTO DIFFERENTIAL Routine 09/16/2024 11:13 AM COUNTER STITCHER XR CHEST PA LATERAL 2 VIEWS Schedule Routine, Read Routine (OP Routine) 09/05/2024 9:21 AM COUNTER STITCHER COMPREHENSIVE METABOLIC PANEL STAT 09/02/2024 1:53 PM COUNTER STITCHER Chronic congestive heart failure, unspecified heart failure type (HCC) PRO B-TYPE NATRIURETIC PEPTIDE STAT 09/02/2024 1:51 PM COUNTER STITCHER Chronic congestive heart failure, unspecified heart failure type (HCC) CARDIOLOGY DOCUMENT SCAN Routine 08/31/2024 2:52 PM COUNTER STITCHER CARDIOLOGY DOCUMENT SCAN Routine 08/30/2024 2:15 PM COUNTER STITCHER CARDIOLOGY DOCUMENT SCAN Routine 08/30/2024 1:29 PM COUNTER STITCHER POC INFLUENZA A/B, COVID-19 ANTIGEN Routine 08/29/2024 5:16 PM COUNTER STITCHER Acute cough ECG 12-LEAD Routine 07/01/2024 2:03 PM COUNTER STITCHER Permanent atrial fibrillation (CMS/HCC) (HCC) NSVT (nonsustained [...] * Cardiology Document Scan (09/20/2024 3:02 PM COUNTER STITCHER) Anatomical Region Laterality Modality Other us Historical Provider CV CARDIAC SERVICES DEBORAH THAO Final Result * (ABNORMAL) CBC with auto differential (09/16/2024 11:13 AM COUNTER STITCHER) WBC 8.5 3.8 - 10.8 Thousand/u L [facility] RBC, POC 3.85(L) 4.20 - 5.80 Million/uL [facility] Hgb 8.4(L) 13.2 - 17.1 g/dL [facility] Hct 29.8(L) 38.5 - 50.0 % [facility] MCV 77.4(L) 80.0 - 100.0 fL [facility] MCH 21.8(L) 27.0 - 33.0 pg [facility] MCHC 28.2(L) 32.0 - 36.0 g/dL [facility] Comment: For adults, a slight decrease in [...] Lymphocytes, abs 1,454 850 - 3,900 cells/uL [facility] Monocyte abs 1,080(H) 200 - 950 cells/uL [facility] Eosinophils, abs 162 15 - 500 cells/uL [facility] Basophils, abs 60 0 - 200 cells/uL [facility] Neutrophils 67.6 % [facility] Lymphocyte pct 17.1 % [facility] Monocytes 12.7 % [facility] Eosinophils 1.9 % [facility] Basophils 0.7 % [facility] 09/16/2024 11:1 3 AM COUNTER STITCHER 09/16/2024 11:14 AM COUNTER STITCHER Narrative [facility] - 09/16/2024 5:29 PM COUNTER STITCHER FASTING:YES FASTING: YES us Malachi Braden MD LAB BLOOD ORDERABLES Final Result [facility] [address] [place] [address] * Lipid panel (09/16/2024 11:13 AM COUNTER STITCHER) Pathologist [facility] Cholesterol 93 <200 mg/dL [facility] Tre[facility] HDL 45 > OR = 40 mg/dL [facility] Triglycerides 93 <150 mg/dL [facility] LDL 30 mg/dL (calc) [facility] Comment: Reference range: <100 Desirable range <100 mg/dL for primary prevention; <70 mg/dL for patients with CHD or diabetic patients with > or = 2 CHD risk factors. LDL-C is now calculated using the Chao-Gladis calculation, which is a validated novel method providing better accuracy than the Friedewald equation in the estimation of LDL-C. Chao MONSALVE et al. ELISEO. 2013;310(19): 4134-2328 (http://education.[employer]/faq/ECK846) Chol/HDL ratio 2.1 <5.0 (calc) [facility] Non-HDL, (LDL+VLDL) 48 <130 mg/dL (calc) [facility] Comment: For patients with diabetes plus 1 major ASCVD risk factor, treating to a non-HDL-C goal of <100 mg/dL (LDL-C of <70 mg/dL) is considered a therapeutic option. 09/16/2024 11:1 3 AM COUNTER STITCHER 09/16/2024 11:14 AM COUNTER STITCHER Narrative [facility] - 09/16/2024 5:29 PM COUNTER STITCHER FASTING:YES FASTING: YES Malachi Braden MD LAB BLOOD ORDERABLES Final Result [facility] [address] [place] [address] * (ABNORMAL) Comprehensive metabolic panel (09/16/2024 11:13 AM COUNTER STITCHER) Glucose 104(H) 65 - 99 mg/dL [facility] Comment: Fasting reference interval For someone without known diabetes, a glucose value between 100 and 125 mg/dL is consistent with prediabetes and should be confirmed with a follow-up test. BUN 33(H) 7 - 25 mg/dL [facility] Creatinine 1.12 0.70 - 1.22 mg/dL [facility] eGFR 64 > OR = 60 mL/min/1.7 3m2 [facility] BUN/creat ratio 29(H) 6 - 22 (calc) [facility] Sodium 138 135 - 146 mmol/L [facility] Potassium, pl 3.9 3.5 - 5.3 mmol/L [facility] Chloride 99 98 - 110 mmol/L [facility] CO2 27 20 - 32 mmol/L [facility] Calcium 9.1 8.6 - 10.3 mg/dL [facility] Protein, sr 7.3 6.1 - 8.1 g/dL [facility] Albumin 4.1 3.6 - 5.1 g/dL [facility] GLOBULIN 3.2 1.9 - 3.7 g/dL (calc) [facility] Alb/glob ratio 1.3 1.0 - 2.5 (calc) [facility] Bilirubin, total 1.0 0.2 - 1.2 mg/dL [facility] Alk phos 64 35 - 144 U/L [facility] AST 16 10 - 35 U/L [facility] ALT (SGPT) 9 9 - 46 U/L [facility] 09/16/2024 11:1 3 AM COUNTER STITCHER 09/16/2024 11:14 AM COUNTER STITCHER Narrative [facility] - 09/16/2024 5:29 PM COUNTER STITCHER FASTING:YES FASTING: YES Malachi Braden MD LAB BLOOD ORDERABLES Final Result [facility] [address] [place] [address] * XR Chest Pa Lateral 2 Views (09/05/2024 9:21 AM COUNTER STITCHER) Anatomical Region Laterality Modality Body, Chest N/A Radiographic Minerva ging Historical Provider IMG XR PROCEDURES Edited Result - Final * (ABNORMAL) Comprehensive metabolic panel (09/02/2024 1:53 PM COUNTER STITCHER) Glucose 247(H) 65 - 99 mg/dL [facility] Comment: Fasting reference interval For someone without known diabetes, a glucose value >125 mg/dL indicates that they may have diabetes and this should be confirmed with a follow-up test. BUN 39(H) 7 - 25 mg/dL [facility] Creatinine 1.30(H) 0.70 - 1.22 mg/dL [facility] eGFR 54(L) > OR = 60 mL/min/1.7 3m2 [facility] BUN/creat ratio 30(H) 6 - 22 (calc) [facility] Sodium 133(L) 135 - 146 mmol/L [facility] Potassium, pl 3.8 3.5 - 5.3 mmol/L [facility] Chloride 94(L) 98 - 110 mmol/L [facility] CO2 25 20 - 32 mmol/L [facility] Calcium 9.0 8.6 - 10.3 mg/dL [facility] Protein, sr 7.1 6.1 - 8.1 g/dL [facility] Albumin 3.9 3.6 - 5.1 g/dL [facility] GLOBULIN 3.2 1.9 - 3.7 g/dL (calc) [facility] Alb/glob ratio 1.2 1.0 - 2.5 (calc) [facility] Bilirubin, total 1.1 0.2 - 1.2 mg/dL [facility] Alk phos 71 35 - 144 U/L [facility] AST 22 10 - 35 U/L [facility] ALT (SGPT) 14 9 - 46 U/L [facility] Blood 09/02/2024 1:53 PM COUNTER STITCHER 09/02/2024 4:29 PM COUNTER STITCHER Result [facility] Neema JIANG LAB BLOOD ORDERABLES Final Result [facility] [address] [place] [address] * (ABNORMAL) Pro B-type natriuretic peptide (09/02/2024 1:51 PM COUNTER STITCHER) NT PROBNP 4,270(H) <450 pg/mL [facility] Blood 09/02/2024 1:51 PM COUNTER STITCHER 09/02/2024 5:06 PM COUNTER STITCHER Result [facility] Neema JIANG LAB BLOOD ORDERABLES Final Result [facility] [address] [place] [address] * Cardiology Document Scan (08/31/2024 2:52 PM COUNTER STITCHER) Anatomical Region Laterality Modality Other Historical Provider [facility] SERVICES PROCE DURES Final Result * Cardiology Document Scan (08/30/2024 2:15 PM COUNTER STITCHER) Anatomical Region Laterality Modality Other Historical Provider CV CARDIAC SERVICES PROCE DURES Final Result * Cardiology Document Scan (08/30/2024 1:29 PM COUNTER STITCHER) Anatomical Region Laterality Modality Other Historical Provider CV CARDIAC SERVICES PROCE [facility] Final Result * (ABNORMAL) POC Influenza A/B, COVID-19 antigen (08/29/2024 5:16 PM COUNTER STITCHER) [facility] Influenza A Ag, POC Negative Negative [facility] Influenza B Ag, POC Negative Negative [facility] COVID-19 Ag POC Positive(A) Presumptive Negative, Invalid [facility] Nasal 08/29/2024 5:16 PM COUNTER STITCHER Result [facility] Neema JIANG POINT OF CARE TEST ORDERAB LES Final Result [facility] [address] [facility] [address] [place] [address] * ECG 12-LEAD (07/01/2024 2:03 PM COUNTER STITCHER) Narrative Kostas Martinez MD - 07/01/2024 2:03 PM COUNTER STITCHER Kostas Martinez MD 07/01/2024 2:03 PM ECG 12 lead Date/Time: 07/01/2024 2:03 PM Performed by: Kostas Martinez MD Authorized by: Kostas Martinez MD Comments: Atrial fibrillation, PVC,IVCD, QRSd 124ms, QTc 432ms. Result [facility] Kostas Martinez MD ECG ORDERABLES Edited Re sult - Final * DIABETES EYE EXAM (05/30/2024 12:01 PM CDT) [facility] SCRIBED DIABETIC DILATED EYE EXAM Normal Result [facility] Historical Provider HEALTH MAINTENANCE Edited Result - Final * (ABNORMAL) Hemoglobin A1c (04/04/2024 4:15 AM CDT) [facility] Hgb A1C 7.2(H) 4.0 - 5.6 % Comment:Testing performed by : [facility], [address] [place] [address]., [id number] Estimated Average Glucose 160 mg/dL [facility] Comment: The ADA recommends reporting an estimated Average Glucose (eAG) with all Hemoglobin A1c results using the equation derived from a study of 507 normal and diabetic adults. Minority populations were underrepresented and children were not included. (Diabetes Care 31:9481-3736, 2008). The eAG is not equivalent to a fasting glucose. Testing performed by: [facility], [address] [place] [address]., [address] Blood 04/04/2024 4:15 AM CDT 04/04/2024 5:07 AM CDT us Thalia Apple MD LAB BLOOD ORDER MARTÍNEZ Final Result [facility] [address] [facility] Department [place] [address] * Albumin Creatinine Ratio, Urine (12/16/2022 10:56 AM CDT) Creatinine ur 85.5 Not Estab. mg/dL [facility] - 01 Microalbumin, ur 23.7 Not Estab. ug/mL [facility] - 01 Microalbumin/cre at ratio 28 0 - 29 mg/g creat [facility] - 01 Comment: Normal: 0 - 29 Moderately increased: 30 - 300 Severely increased: >300 Urine 12/16/2022 10:5 6 AM CDT 12/16/2022 Narrative [facility] - 12/17/2022 4:11 PM CDT Performed at: - [facility] [id number] Jewelry Bearing Maker: Ten Yang PhD, Phone: [phone] us Neema JIANG LAB URINE ORDERABLES Final Result [facility] - 01 from Last 3 Months or Most Recently Relevant to Health Maintenance Additional Health Concerns Infection Onset Date Last Indicated COVID: Recovered Comment:Added based on recent COVID infection. 09/08/2024 025 Insurance FOR LIFE FOR LIFE Advance Directives For more information, please contact: [phone] Documents on File Type Date Recorded Patient Contractor General Building Expl anation ADVANCE DIRECTIVE 03/14/2017 12:00 AM SENG R OF TIP INSERTER FINANCIAL/MEDICAL * Full Code (Latest Code Status [...] 4:36 PM 05/02/2019 8:17 PM Care Teams Linotype Mechanic Relationship Specialty Start Date End Date Neema Garay PA [address] [facility] [address] [place] [address] PCP - General Internal Medicine 12/24/20 Malachi Braden MD [address] [facility] [address] [place] [address] Consulting Physician Cardiology 01/07/21 Ag Redding MD [address] [facility] [address] [place] [address] Consulting Physician Family Medicine 07/08/23 Rosalinda Bingham MD [address] [facility] [address] [place] [address] Consulting Physician Pulmonary Disease 04/08/24 Yissel Leonard MD [address] [place] [address] Referring Physician Internal Medicine 04/26/24 Kostas Martinez MD [address] [facility] [address] [place] [address] Consulting Physician Cardiology 04/26/24 Bradley Griffin MD [address] [facility] [address] [place] [address] Consulting Physician Physical Medicine and Rehabilitation 08/29/24
--- OUTSIDE RECORDS SUMMARY | 2024-09-27 06:38 | XMS_ITS | Encounter Summary ---
Author Organization [facility] Healthcare Address [address] [place] [address] Care Team Providers Care Retail Reset Merchandiser Name Role Phone Neema Garay Primary Care Provider [phone] Malachi Braden MD Unavailable [phone] Ag Redding MD Unavailable [phone] Rosalinda Bingham MD Unavailable Yissel Leonard MD Unavailable [phone] Kostas Martinez MD Unavailable [phone] Bradley Griffin MD Unavailable Reason for Visit * Reason Comments Coronary Artery Disease Congestive Heart Failure Atrial Fibrillation Encounter Details Date Type Department Care Team (Late st Contact Info) Description 09/26/2024 2:00 PM NUTRITION TEACHER Office Visit [facility] Medical Group Cardiology [address] [address] [place] [address] [place] [id number] Permanent atrial fibrillation (CMS/HCC) (HCC) (Primary Dx); retirement current use of anticoagulant; NSVT (nonsustained ventricular tachycardia) (HCC); 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 Never 04/04/2024 Do you belong to any clubs o r organizations such as gnosticist groups, unions, fraternal or athletic groups, or [...] any time in the past 12 m [facility], were you homeless or living in a penitentiary (including now)? No 04/04/2024 Personal Safety Answer Date Recorded Have you ever been in or are you currently in a harmful physical or emotional relationship or is someone making you feel afraid or unsafe? Denies 06/08/2024 Sex and Gender Information Value Date Recorded Sex Assigned at Not on file Legal Sex Male 8:56 PM NUTRITION TEACHER Gender Identity Male 07/06/2024 6:10 PM NUTRITION TEACHER Sexual Orientation Not on file documented as of this encounter Last Filed Vital Signs Vital Sign Reading Time Taken Comments Blood Pressure 110/58 09/26/2024 2:14 PM NUTRITION TEACHER Pulse 50 09/26/2024 2:14 PM NUTRITION TEACHER Temperature - - Respiratory Rate - - Oxygen Saturation 96% 09/26/2024 2:14 PM NUTRITION TEACHER Inhaled Oxygen Concentration - - Weight 89.5 kg (197 lb 6.4 oz) 09/26/2024 2:14 P M NUTRITION TEACHER Height - - Body Mass Index 28.94 08/19/2024 11:10 AM NUTRITION TEACHER documented in this encounter Plan of Treatment Not on file documented as of this encounter Visit Diagnoses Diagnosis Permanent atrial fibrillation (CMS/HCC) (HCC)- Primary Atrial fibrillation retirement current use of anticoagulant NSVT (nonsustained ventricular tachycardia) (HCC) 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 09/08/2024 09/08/2024 documented as of this encounter Care Teams Retail Reset Merchandiser Relationship Specialty Start Date End Date Neema Garay PA [address] [place] [address] PCP - General Internal Medicine 12/24/20 Malachi Braden MD [address] [place] [address] Consulting Physician Cardiology 01/07/21 Ag Redding MD [address] [place] [address] Consulting Physician Family Medicine 07/08/23 Rosalinda Bingham MD [address] [address] Consulting Physician Pulmonary Disease 04/08/24 Yissel Leonard MD [address] [place] [address] Referring Physician Internal Medicine 04/26/24 Kostas Martinez MD [address] [place] [address] Consulting Physician Cardiology 04/26/24 Bradley Griffin MD [address] [place] [address] Consulting Physician Physical Medicine and Rehabilitation 08/29/24 documented as of this encounter
--- OUTSIDE RECORDS SUMMARY | 2024-09-27 06:38 | XMS_ITS ---
Author Organization [facility] Address [address] [place] [address] Care Team Providers Care Compliance Coordinator Name Role Phone Neema Garay Primary Care Provider [phone] Malachi Braden MD Unavailable [phone] Ag Redding MD Unavailable [phone] Rosalinda Bingham MD Unavailable Yissel Leonard MD Unavailable [phone] Kostas Martinez MD Unavailable [phone] Bradley Griffin MD Unavailable [phone] Active Problems Problem Noted Date Diagnosed Date Acute cough 08/30/2024 Assessment & Plan (08/30/2024 4:09 PM ARC AND GAS WELDER): Patient is COVID positive today COVID 08/30/2024 Assessment & Plan (08/30/2024 4:07 PM ARC AND GAS WELDER): Let pt know the newest CDC recommendations [...] 08/30/2024 Assessment & Plan (08/30/2024 4:09 PM ARC AND GAS WELDER): Patient has bilateral lower leg edema with known congestive heart failure history. It sounds like he is having more difficulty laying down. He has been working with his email marketing executive who is already doubled his Lasix. Advised [...] bladder cancer. Continue per Dr. Armas at [facility] half-way current use of anticoagulant Assessment & Plan (06/04/2024 10:04 PM CDT): Continue with [facility]i for anticoagulation for his AFib BMI 27.0-27.9,adult 04/06/2024 Assessment & Plan (08/30/2024 4:09 PM ARC AND GAS WELDER): Weight/BMI is in healthy range. Continue healthy [...] 05/04/2023 Age-related hearing loss 05/04/2023 Pulmonary fibrosis (CMS/[facility]) 02/26/2023 Assessment & Plan (06/28/2023 8:17 PM ARC AND GAS WELDER): Continue per pulmonology Dr. Allen Chronic bilateral low back pain with right-sided sciatica 09/13/2022 Assessment & Plan (09/13/2022 7:53 PM ARC AND GAS WELDER): Patient has chronic back pain with pain [...] 08/24/2022 Assessment & Plan (08/24/2022 9:30 PM ARC AND GAS WELDER): Patient is complaining about leg pain bilaterally. The pain increases when legs hit the floor and then limit his ability to walk distances. 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 Will check arterial vascular studies and follow-up pending those results. Order was provided to patient for him to schedule at his convenience. Congestive heart failure ([facility]) 12/29/2021 Assessment & Plan (08/30/2024 4:09 PM ARC AND GAS WELDER): Patient has bilateral lower leg edema with known congestive heart failure history. It sounds like he is having more difficulty laying down. He has been working with his email marketing executive who is already doubled his Lasix. Advised [...] assistance Assessment & Plan (06/28/2023 8:25 PM ARC AND GAS WELDER): Recent hospitalization for CHF. Strongly encouraged him [...] Lasix Assessment & Plan (08/24/2022 9:28 PM ARC AND GAS WELDER): Continue per Cardiology. Assessment & Plan (06/01/2022 8:52 PM CDT): Continue per Cardiology Assessment & Plan (12/29/2021 5:00 PM CDT): Patient requests refills of his Lasix. Will provide but encouraged to continue to follow with Cardiology as instructed Atrial fibrillation ([facility]) 09/09/2021 Assessment & Plan (06/04/2024 10:04 PM [...] anticoagulation. Assessment & Plan (06/28/2023 8:15 PM ARC AND GAS WELDER): Continue per Dr. Braden Patient has CHF AFib CAD history hypertension hyperlipidemia and pulmonary hypertension. He is on Eliquis 5 mg b.i.d. for anticoagulation with his AFib. Tolerating his losartan hydrochlorothiazide 100/25, isosorbide ER 30 daily, metoprolol 25 b.i.d., amlodipine 5 and Lasix 40 Assessment & Plan (10/10/2021 9:46 PM ARC AND GAS WELDER): Continue per Cardio Assessment & Plan (09/18/2021 7:33 PM ARC AND GAS WELDER): Continue per Cardiology patient is on Eliquis Bilateral carotid artery stenosis 08/07/2021 Assessment & Plan (06/02/2023 3:09 PM CDT): Status post left CEA. Right ICA with stable moderate 50-69% stenosis. Continue risk factor modification with ASA, statin therapy in good blood pressure control. Follow-up in 6 months with repeat carotid duplex. Assessment & Plan (10/01/2022 4:35 PM ARC AND GAS WELDER): Impression: Patient has patent left internal carotid [...] duplex. Assessment & Plan (09/18/2021 7:38 PM ARC AND GAS WELDER): Left carotid endarterectomy is planned with Dr. dawkins. Assessment & Plan (08/12/2021 3:05 PM ARC AND GAS WELDER): Assessment: Symptomatic left high-grade stenosis. Plan: Based off his CT I have recommended carotid endarterectomy over TCAR. Risks benefits alternatives were discussed with the patient, risks included bleeding, infection, nerve injury, stroke and need for further surgery. 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 Reviewed possible causes and need for additional workup. EKG in the office showed Aflutter. This was a new finding. Consider Carotid dopplers, MRA brain. ECHO last done 12/[address] Braden. Discussed with Dr. 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 Patient is on Eliquis for AFib so not on an aspirin. He is on a statin Assessment & Plan (09/18/2021 7:33 PM ARC AND GAS WELDER): Continue per Cardiology. He is on a beta-brooke nitrate and aspirin Assessment & Plan (05/13/2021 [...] 10/31/2020 Assessment & Plan (09/18/2021 7:33 PM ARC AND GAS WELDER): Continue per Urology. Continue Proscar Assessment & [...] 10:00 PM CDT): Diabetes is managed by [facility] Dr. Ram Assessment & Plan (06/01/2022 8:50 PM CDT): Stressed importance of continued A1c control to minimize the terminal press operator effects of diabetes. Bring accuchecks to office when instructed to do so. Check A1c about every 3-6 months. Take medication as prescribed. Get annual eye exam. Encouraged LATANYA/Statin if able to tolerate. Encouraged weight control and encouraged diabetic diet and exercise. Managed by endocrinology at [facility] Assessment & Plan (09/18/2021 7:32 PM ARC AND GAS WELDER): Stressed importance of continued A1c control to minimize the usp effects of diabetes. Bring accuchecks to office when instructed to do so. Check A1c about every 3-6 months. Take medication as prescribed. Get annual eye exam. Encouraged LATANYA/Statin if able to tolerate. Encouraged weight control and encouraged diabetic diet and exercise. Continue per Endocrinology at [facility] Assessment & Plan (05/13/2021 11:10 PM CDT): Stressed importance of continued A1c control to minimize the terminal press operator effects of diabetes. Bring accuchecks to office when instructed to do so. Check A1c about every 3-6 months. Take medication as prescribed. Get annual eye exam. Encouraged LATANYA/Statin if able to tolerate. Encouraged weight control and encouraged diabetic diet and exercise. Continue per Endo. He may consider a change of provider as having difficulty getting supplies. Discussed Kathy Caceres NP in [place] as an option. He will consider. Assessment & Plan (01/10/2021 9:02 PM CDT): Stressed importance of continued A1c control to minimize the usp effects of diabetes. Bring accuchecks to office [...] (04/25/2019): Added automatically from request for surgery [id number] HNP (herniated nucleus pulposus with myelopathy) , thoracic 02/11/2019 Overview (02/11/2019): Added automatically from request for surgery [id number] Abnormal stress test 03/05/2018 Overview (02/06/2019): Stress [...] resolved. Assessment & Plan (07/28/2021 10:18 AM ARC AND GAS WELDER): History of CVAs in the past. Has [...] of continued A1c control to minimize the terminal press operator effects of diabetes. Bring accuchecks to office [...] Continue atorvastatin 20 Diabetes is managed by [facility] Dr. Ram Assessment & Plan (04/17/2024 10:30 PM CDT): Stressed importance of continued A1c control to minimize the usp effects of diabetes. Bring accuchecks to office [...] Atorvastatin. Assessment & Plan (06/28/2023 8:16 PM ARC AND GAS WELDER): Encouraged patient to follow low fat/low chol diet like the Mediterranean diet. Increase good fats in the diet. Increase exercise. Monitor labs as needed. Continue atorvastatin 20 Assessment & Plan (06/02/2023 3:10 PM CDT): Stable continue Lipitor and metformin. Assessment & Plan (10/01/2022 4:37 PM ARC AND GAS WELDER): Impression: Chronic diabetes mellitus with good glucose control. Plan: Continue insulin Assessment & Plan (06/01/2022 8:51 PM CDT): Stressed importance of continued A1c control to minimize the terminal press operator effects of diabetes. Bring accuchecks to office when instructed to do so. Check A1c about every 3-6 months. Take medication as prescribed. Get annual eye exam. Encouraged LATANYA/Statin if able to tolerate. Encouraged weight control and encouraged diabetic diet and exercise. Managed by the endocrinology group [facility]. Encouraged patient to follow low fat/low chol diet like the Mediterranean diet. Increase good fats in the diet. Increase exercise. Monitor labs as needed. Continue atorvastatin Assessment & Plan (04/12/2022 7:55 PM CDT): Stressed importance of continued A1c control to minimize the usp effects of diabetes. Bring accuchecks to office [...] Lipitor Assessment & Plan (09/18/2021 7:31 PM ARC AND GAS WELDER): Encouraged patient to follow fat/low chol diet [...] of continued A1c control to minimize the usp effects of diabetes. Bring accuchecks to office when instructed to do so. Check A1c about every 3-6 months. Take medication as prescribed. Get annual eye exam. Encouraged LATANYA/Statin if able to tolerate. Encouraged weight control and encouraged diabetic diet and exercise. Endocrinology and [facility] manages his diabetes. Continue losartan hydrochlorothiazide 100/25, isosorbide XR 30, amlodipine 5 and Lasix 20 Assessment & Plan (12/04/2023 12:54 PM CDT): Impression: Chronic and stable. Plan: Continue amlodipin, Hyzaar, isosorbide Assessment & Plan (06/28/2023 8:16 PM ARC AND GAS WELDER): Bp is stable/in acceptable range for any co-morbidities. Encouraged to limit sodium intake and exercise for weight control. Stressed importance of continued A1c control to minimize the terminal press operator effects of diabetes. Bring accuchecks to office when instructed to do so. Check A1c about every 3-6 months. Take medication as prescribed. Get annual eye exam. Encouraged LATANYA/Statin if able to tolerate. Encouraged weight control and encouraged diabetic diet and exercise. Dr. Braden manages HTN Endo at [facility] manages his DM Assessment & Plan (06/02/2023 3:11 PM CDT): Stable continue amlodipine 5 mg. Assessment & Plan (12/28/2022 7:50 PM CDT): Bp is stable/in acceptable range for any co-morbidities. Encouraged to limit sodium intake and exercise for weight control. Continue losartan hydrochlorothiazide, metoprolol and amlodipine Assessment & Plan (10/01/2022 4:36 PM ARC AND GAS WELDER): Impression: Chronic hypertension. Plan: Continue Norvasc, Imdur, metoprolol, Hyzaar Assessment & Plan (08/24/2022 9:27 PM ARC AND GAS WELDER): Bp is stable/in acceptable range for any co-morbidities. Encouraged to limit sodium intake and exercise for weight control. Stressed importance of continued A1c control to minimize the terminal press operator effects of diabetes. Bring accuchecks to office [...] instructed Assessment & Plan (09/18/2021 7:31 PM ARC AND GAS WELDER): Bp is stable/in acceptable range for any [...] 08/15/2014 Assessment & Plan (06/28/2023 8:27 PM ARC AND GAS WELDER): Patient with MRI showing multiple changes. Spinal stenosis after history of 2 surgeries. There is a fluid collection. In February recommended he see neurosurgery. Was referred but he was unable to keep this appointment. He prefers now a referral to neurosurgery at [facility]. Appointment placed will await recommendations. Will go [...] catheter present 08/15/2014 Deep vein thrombosis (DVT) ([facility]) 08/07/2014 Gastric reflux Assessment & Plan (09/18/2021 7:33 PM ARC AND GAS WELDER): Continue omeprazole Current Oncology Plans Intravesicular BCG (JOHANNY??) Induction Weekly x 6 - Bladder* Plan Start Date: 07/13/2024 Plan Provider:Tariq Armas MD Linked Problems Malignant neoplasm of urinar y bladder, unspecified site (HCC) Treatment Medications BCG live (JOHANNY) syringe 50 mg (JOHANNY) Past Plans No past plan information found. Radiation Treatments * No radiation treatments are documented for this patient in [facility]. Treatments may have been administered in another system. Lifetime Dose Tracking * Chemical Lifetime Dose Automatic Entry Manual Entr y Fluoro Time 2 minutes 2 minutes 0 minutes DLP 2,820 mGycm 2,820 mGycm 0 mGycm Resolved Problems Problem Noted Date Diagnosed Date [...] maintain. Assessment & Plan (06/28/2023 8:18 PM ARC AND GAS WELDER): Weight/BMI is in healthy range. Continue healthy [...] calf to get the correct size. Showed [employer] website as how to order. If his [...] calf to get the correct size. Showed [employer] website as how to order. If his [...] the lung cancer. BMI 27.0-27.9,adult 12/15/2022 03/24/20 Assessment & Plan (12/15/2022 2:30 PM CDT): Weight/BMI is in healthy range. Continue healthy lifestyle to maintain. Other thrombophilia 12/15/2022 12/16/19 Frequency of urination 09/13/202201/10 Assessment & Plan (09/13/2022 7:53 PM ARC AND GAS WELDER): octavio has chronic back pain with pain [...] He verbalizes understanding. BMI 26.0-26.9,adult 09/13/2022 03/24/20 Assessment & Plan (09/13/2022 7:53 PM ARC AND GAS WELDER): Weight/BMI is in healthy range. Continue healthy [...] 24 Assessment & Plan (10/01/2022 4:38 PM ARC AND GAS WELDER): Impression: Patient has a history of spinal [...] 01/11/2024 Assessment & Plan (10/14/2021 1:48 PM ARC AND GAS WELDER): Assessment/a: Left lower extremity symptomatic carotid stenosis [...] duplex. Assessment & Plan (10/10/2021 9:47 PM ARC AND GAS WELDER): Status post carotid endarterectomy. Patient tolerated procedure well. No s/s infection during the post-op period. . Keep followup with Dr Wolfe BMI 27.0-27.9,adult 09/16/2021 12/16/19 23 Assessment & Plan (08/24/2022 9:28 PM ARC AND GAS WELDER): Weight/BMI is in healthy range. Continue healthy lifestyle to maintain. Assessment & Plan (06/01/2022 8:51 PM CDT): Weight/BMI is in healthy range. Continue healthy lifestyle to maintain. Assessment & Plan (12/17/2021 2:01 PM CDT): Weight/BMI is in healthy range. Continue healthy lifestyle to maintain. Assessment & Plan (09/18/2021 7:50 PM ARC AND GAS WELDER): Weight/BMI is in healthy range. Continue healthy lifestyle to maintain. Assessment & Plan (09/16/2021 3:08 PM ARC AND GAS WELDER): Weight/BMI is in healthy range. Continue healthy lifestyle to maintain. Preoperative clearance 09/09/202108/24 Essential hypertension, benign 09/09/2021 12/29/2021 Atypical atrial flutter (CMS/HCC) 07/29/2021 06/04/2024 Assessment & Plan (08/07/2021 9:49 AM ARC AND GAS WELDER): Assessment/plan: Continue Eliquis. He is scheduled to undergo a cardioversion tomorrow. Mixed hyperlipidemia 07/29/2021 022 Assessment & Plan (08/12/2021 3:05 PM ARC AND GAS WELDER): Assessment/plan: Continue statin. Essential hypertension 07/29/202109/09 Assessment & Plan (08/12/2021 3:05 PM ARC AND GAS WELDER): Assessment/plan: Continue amlodipine Assessment & Plan (08/07/2021 9:49 AM ARC AND GAS WELDER): Assessment/plan: Continue amlodipine. BMI 27.0-27.9,adult 07/18/2021 09/16/19 Assessment & Plan (07/18/2021 1:27 PM ARC AND GAS WELDER): Weight/BMI is in healthy range. Continue healthy lifestyle to maintain. 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 Spinal stenosis after history of 2 surgeries. There is a fluid collection. In February recommended he see neurosurgery. Was referred but he was unable to keep this appointment. He prefers now a referral to neurosurgery at [facility]. Appointment placed will await recommendations. Will go ahead and make a referral for pain management so he is in the waiting process as may end up needing neurosurgery and pain management simultaneously. Diabetes mellitus 08/15/2014 01/10/2021
--- OUTSIDE RECORDS SUMMARY | 2024-09-27 06:38 | XMS_ITS | Encounter Summary ---
Author Organization [facility] Healthcare Address [address] [place] [address] Care Team Providers Care Military Equipment Specialist Name Role Phone Neema Garay Primary Care Provider [phone] Malachi Braden MD Unavailable Ag Redding MD Unavailable [phone] Rosalinda Bingham MD Unavailable Yissel Leonard MD Unavailable [phone] Kostas Martinez MD Unavailable Bradley Griffin MD Unavailable [phone] Reason for Visit * Reason Onset Date Comments Test Results 09/05/2024 BNP Encounter Details Date Type Department Care Team (Late st Contact Info) Description 09/05/2024 Telephone [facility] Medical [facility] Cardiology [address] [facility] [address] [address] Malachi Braden MD [address] [address] Test Results (BNP) Social History Tobacco Use Types Packs/Day Years Used Date Smoking Tobacco: Former Cigarettes 1.1 26.7 0 03/30/1966 - 03/30/1986 Smokeless Tobacco: Never Alcohol Use Standard Drinks/Week Comments Yes 1 (1 standard drink = 0.6 oz pur e alcohol) rare [facility] Utilities Answer Date Recorded In the past [...] often do you attend chur ch or rastafari services? Never 04/04/2024 Do you belong to any clubs o r organizations such as restoration groups, unions, fraternal or athletic groups, or [...] any time in the past 12 m [facility], were you homeless or living in a correction (including now)? No 04/04/2024 Personal Safety Answer Date Recorded Have you ever been in or are you currently in a harmful physical or emotional relationship or is someone making you feel afraid or unsafe? Denies 06/08/2024 Sex and Gender Information Value Date Recorded Sex Assigned at Not on file Legal Sex Male 8:56 PM DRILLING FOREMAN Gender Identity Male 07/06/2024 6:10 PM DRILLING FOREMAN Sexual Orientation Not on file documented as of this encounter Miscellaneous Notes * Telephone Encounter - Meghana Abbott MA - 09/06/2024 3:03 PM DRILLING FOREMAN Called pt. Pt stated that he already had a chest xray. Please media tab. Advised pt to go to ER if he has SOB. LING FOREMAN * Telephone Encounter - Malachi Braden MD - 09/05/2024 3:06 PM DRILLING FOREMAN Advised patient to have a chest x-ray PA and lateral. I am not sure why they check the BNP. If has any congestive heart failure then patient needs Lasix. Patient was follow-up appointment on the September and at that time I will leave re-evaluate him. Advised him to go to emergency room if has any shortness of breath LING FOREMAN * Telephone Encounter - Meghana Abbott MA - 09/05/2024 2:18 PM DRILLING FOREMAN LEATHER CURRIER Tanisha's office called regarding pt's BNP. Airam states pt had covid. Pt received xray and now has pneumonia. Pt's BNP is 4270. LEANDRO Garay wants to know what Dr Braden wants to do with pt's lasix. LING FOREMAN documented in this encounter Plan of Treatment Not on file documented as of this encounter Visit Diagnoses Not on filedocumented in this encounter Additional Health Concerns Infection Onset Date Last Indicated Resolved Time COVID19 08/29/2024 08/29/2024 09/08/2024 3:05 AM DRILLING FOREMAN COVID: Recovered Comment:Added based on recent COVID infection. 09/08/2024 09/08/2024 documented as of this encounter Care Teams Military Equipment Specialist Relationship Specialty Start Date End Date Neema Garay PA [address] [facility] [address] [place] [address] PCP - General Internal Medicine 12/24/20 Malachi Braden MD [address] [facility] [address] [place] [address] [address] Consulting Physician Cardiology 01/07/21 Ag Redding MD [address] [facility] [address] [place] [address] [place] [address] Consulting Physician Family Medicine 07/08/23 Rosalinda Bingham MD [address] [address] Consulting Physician Pulmonary Disease 04/08/24 Yissel Leonard MD [address] [address] [place] [address] Referring Physician Internal Medicine 04/26/24 Kostas Martinez MD [address] [address] Consulting Physician Cardiology 04/26/24 Bradley Griffin MD [address] [address] Consulting Physician Physical Medicine and Rehabilitation 08/29/24 documented as of this encounter
--- OUTSIDE RECORDS SUMMARY | 2024-09-27 06:38 | XMS_ITS | Referral Summary ---
Author Organization [facility] Address [address] [place] [address] Care Team Providers Care Sales Representative Name Role Phone Unavailable Primary Care Provider Unavailabl e Source Comments [facility],non-owned Affiliates and Associated Physician Practices is amultiple site organization consisting of ambulatory clinics and hospital sitesin [place], [place], [place] and [place]. This disclosure is being madepursuant to the Care Everywhere program and may not contain all information available regarding this patient. Last updated 18.[facility] Social History Tobacco Use Types Packs/Day Years Used Date Smoking Tobacco: Never Assessed Sex and Gender Information Value Date Recorded Sex Assigned at Not on file Gender Identity Not on file Sexual Orientation Not on file Plan of Treatment Not on file
--- OUTSIDE RECORDS SUMMARY | 2024-09-27 06:39 | XMS_ITS | Clinical Summary ---
Author Organization [facility] Address [address] [place] [address] Care Team Providers Care Cap Sizer Name Role Phone Neema Garay Primary Care Provider [phone] Allergies Active Allergy Reactions Criticality Noted Date Comments Gabapentin Other (see comment) 04/02/2023 Patient stated they had every side effect. Medications albuterol sulfate HFA 108 (90 Base) MCG/ACT inhalerIndicatio ns:SOB Inhale 2 puffs into the lungs every 6 (six) hours as needed. Indications: SOB 10/31/19 23 Active amLODIPine (NORVASC) 5 MG tabletIndication s:HTN Take 1 tablet by mouth daily. Indications: HTN 01/22/20 23 Active apixaban (ELIQUIS) 5 MG tabletIndication s:Atrial Fibrillation Take 1 tablet by mouth 2 (two) times daily. Indications: Atrial Fibrillation 12/16/19 23 Active TRULICITY 0.75 MG/0.5ML injectionIndicat ions:Diabetes Mellitus Inject 0.75 mg into the skin once a week. Indications: Diabetes 09/10/19 23 Active finasteride (PROSCAR) 5 MG tabletIndication s:BPH Take 1 tablet by mouth daily. Indications: BPH 01/22/20 23 Active folic acid (FOLVITE) 400 MCG tabletIndication s:supplement Take 2.5 tablets by mouth daily. Indications: supplement Active FREESTYLE PRECISION SARWAT TEST test strip 1 strip by Other route see administration instructions. 12/30/19 23 Active HUMALOG MIX 75/25 KWIKPEN (75-25) 100 UNIT/ML injection (PEN)Indications :Diabetes 09/10/19 Active SURE COMFORT PEN NEEDLES 31G X 8 MM Misc 11/13/19 Active isosorbide mononitrate ER (IMDUR) 30 MG 24 hr tabletIndication s:HTN Take 1 tablet by mouth daily. Indications: HTN 11/12/19 Active losartan-hydroCH LOROthiazide (HYZAAR) 100-25 MG tabletIndication s:HTN Take 1 tablet by mouth daily. Indications: HTN 12/16/19 Active metFORMIN ER (GLUCOPHAGE-XR) 500 MG 24 hr tabletIndication s:Diabetes Take 1 tablet by mouth 2 (two) times daily. Indications: Diabetes 11/13/19 Active metoprolol tartrate (LOPRESSOR) 25 MG tabletIndication s:HTN Take 1 tablet by mouth 2 (two) times daily. Indications: HTN 08/20/19 Active Multiple Vitamins-Mineral s (CEROVITE SENIOR) TabIndications:s upplement Take 1 tablet by mouth daily. Indications: supplement Active pantoprazole EC (PROTONIX) 40 MG tabletIndication s:GERD Take 1 tablet by mouth daily. Indications: GERD 12/16/19 Active triamcinolone (KENALOG) 0.1 % creamIndications :itching Apply 1 Application. topically 3 (three) times daily as needed. Indications: itching 03/23/20 Active diphenhydrAMINE (BENADRYL) 25 MG capsuleIndicatio ns:itching Take 1 capsule by mouth every 6 (six) hours as needed for Itching. Indications: itching Active furosemide (LASIX) 40 MG tabletIndication s:CHF Take 2 tablets (80 mg total) by mouth daily. 30 tablet 2 04/08/20 Active atorvastatin (LIPITOR) 20 MG tabletIndication s:HLD Take 4 tablets (80 mg total) by mouth daily. 30 tablet 2 04/08/20 Active OXYGENIndication s:SOB 1-3 L/min by Nasal route continuous. Indications: SOB 04/09/20 Active Active Problems Problem Noted Date Diagnosed Date Actinic keratosis 05/04/2023 Age-related hearing loss 05/04/2023 Fracture of phalanx of toe 05/04/2023 Gastric reflux 05/04/2023 Overview (05/04/2023): Last Assessment & Plan: Continue omeprazole Hyperlipidemia 05/04/2023 Essential hypertension 05/04/2023 Pain in joint involving ankle and foot 3 Status post coronary artery bypass graft 023 Sensation of chest tightness 05/04/2023 Overview (05/04/2023): O2 provided and patient already with ASA on board. Would consider inpatient vs outpatient ETT myoview. Called cardiology office but waiting for return call. Patient now symptom free and will review with his PCM, Dr. iRvas. Diabetes mellitus ([facility]) 05/04/2023 CHF (congestive heart failure) ([facility]) 04/01/2023 Lower extremity edema 03/18/2023 Overview (05/04/2023): Last Assessment & Plan: Has been on Keflex and triamcinolone for [...] calf to get the correct size. Showed [employer] as how to order. If his symptoms worsen or return he is to follow up immediately. Cellulitis of lower extremity 03/18/2023 Overview (05/04/2023): Last Assessment & Plan: Has been on Keflex and triamcinolone for [...] calf to get the correct size. Showed [employer] as how to order. If his symptoms worsen or return he is to follow up immediately. Pulmonary fibrosis ([facility]/HCC) 02/26/2023 Leg swelling 02/11/2023 Overview (05/04/2023): Last Assessment & Plan: Patient being treated with Lasix 40 mg daily Leg swelling improved today Advised to contact PCP and/or pulmonology for recommendations regarding Lasix prescription Go to ER if you develop severe leg swelling, shortness of breath or chest pain Chronic cough 02/11/2023 Overview (05/04/2023): Last Assessment & Plan: Patient currently being seen by pulmonology, recently had CT and PFTs Patient has a appointment scheduled in 2 weeks, recommended following up with pulmonology at that time regarding chronic cough Continue Xyzal and medications as prescribed by pulmonology Go to ER if you develop severe leg swelling, shortness of breath or chest pain Shortness of breath 01/27/2023 Abnormal x-ray 12/28/2022 Overview (05/04/2023): Last Assessment & Plan: X-ray on October of 2022 showed a little pacer in the left base. It was uncertain if this could be due to infection or other etiology. Recommended follow-up. Recheck x-ray and follow-up pending those results. Patient is little anxious as his was just diagnosed with the lung cancer. Fatigue 12/28/2022 Overview (05/04/2023): Last Assessment & Plan: Probably multifactorial. Check labs and followup to re-evaluate Chronic bilateral low back pain with right-sided sciatica 09/13/2022 Overview (05/04/2023): Last Assessment & Plan: Patient has chronic back pain with pain [...] go to the ER. He verbalizes understanding. Frequency of urination 09/13/2022 Overview (05/04/2023): Last Assessment & Plan: octavio has chronic back pain with pain [...] the ER. He verbalizes understanding. Claudication 08/24/2022 Overview (05/04/2023): Last Assessment & Plan: Patient is complaining about leg pain bilaterally. The pain increases when legs hit the floor and then limit his ability to walk distances. 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 Will check arterial vascular studies and follow-up pending those results. Order was provided to patient for him to schedule at his convenience. Leg pain, bilateral 04/12/2022 Overview (05/04/2023): Last Assessment & Plan: Impression: Patient has a history of spinal stenosis requiring surgical interventions to include rods in 2014 and 2018. He is complaining of left lower extremity shooting pain. Bilateral ABIs reveals triphasic waveforms with normal ABIs. Plan: No surgical interventions required at this time. Recommend patient to follow-up with neurosurgeon for re-evaluation of his back. Atrial fibrillation ([facility]) 09/09/2021 Overview (05/04/2023): Last Assessment & Plan: Continue per Cardio Bilateral carotid artery stenosis 08/07/2021 Overview (05/04/2023): Last Assessment & Plan: Impression: Patient has patent left internal carotid artery and mild right internal carotid artery stenosis. Patient remains asymptomatic. Plan: Continue ongoing risk factor modifications. Continue Eliquis. Follow-up in 6 months for re-evaluation with repeat carotid duplex. Atypical atrial flutter ([facility]) 2020 Overview (05/04/2023): Last Assessment & Plan: Assessment/plan: Continue Eliquis. He is scheduled to undergo a cardioversion tomorrow. Retinal artery occlusion 07/18/2021 Overview (05/04/2023): Last Assessment & Plan: Discussed with patient the pathophys behind the [...] bid dosing) Discussed referral to Ophthamology at [facility] -- Will first work on Cardio evaluation due to timing. EKG done 07/18/2022 53 bpm A Flutter with variable AV block with premature aberrantly conducted complexes LBBB Gait instability 02/16/2021 Overview (05/04/2023): Last Assessment & Plan: Continue PT Neck pain 02/16/2021 Overview (05/04/2023): Last Assessment & Plan: EncouragedTylenol. Topical preparations like Lidocaine patches, Biofreeze, ICYHOT etc as needed. Heat, stretching Encouraged PT. Benign prostatic hyperplasia with incomplete bladder emptying 10/31/2020 Overview (05/04/2023): Last Assessment & Plan: Continue per Urology. Continue Proscar Coronary artery disease of b ypass graft of [place] heart with stable angina pectoris 10/31/2020 Overview (05/04/2023): Last Assessment & Plan: Continue per Cardiology. He is on a beta-brooke nitrate and aspirin Self-catheterizes urinary bladder 10/31/2020 Overview (05/04/2023): Last Assessment & Plan: Continue per Urology. Has needed supplies At risk for venous thromboembolism (VTE) 019 Overview (05/04/2023): Problem added by Discern Expert Problem added by Discern Expert High risk medication use 05/02/2019 Overview (05/04/2023): Last Assessment & Plan: Monitoring insulins, which could cause serious hypoglycemia. 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 Calculated ejection fraction is 65%. Abnormal EKG 07/08/2016 History of back surgery 07/08/2016 Overview (05/04/2023): Last Assessment & Plan: No change History of CVA (cerebrovascular accident) 2015 Overview (05/04/2023): Treated with thrombolytics and has no residual effects of CVA. In February 2017 had a TIA symptoms with the numbness in his left hand which resolved. Last Assessment & Plan: History of CVAs in the past. Has not been on thrombolytics as has been essentially symptom-free. 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 A flutter was confirmed in the office. Fracture of lumbar vertebra ([facility]) Obstructive sleep apnea syndrome 09/07/2014 Paresis of single lower extremity ([facility]/H CC) 09/07/2014 Ankle swelling 08/15/2014 Difficulty in urination 08/15/2014 Osteoarthritis of lumbar spine 08/15/2014 Overview (05/04/2023): Last Assessment & Plan: Patient has known osteoarthritis of the spine [...] need to further evaluate his lumbar spine. Urinary catheter present 08/15/2014 Deep vein thrombosis ([facility]/HCC) 4 Family History Medical History Relation Comments Heart Father Heart Sister Relation Status Comments Father Sister Social History Tobacco Use Types Packs/Day Years Used Date Smoking Tobacco: Never Smokeless Tobacco: Never Tobacco Cessation:Counseling Given: Not Answered Alcohol Use Standard Drinks/Week Comments Not Currently 0 (1 standard drink = 0.6 oz pur e alcohol) OASIS D0700: Social Isolation Answer Da te Recorded Frequency of experiencing loneliness or isolatio n Never 04/23/2023 OASIS A1250: Transportation Answer Date Recorded Lack of Transportation (Medical) No 04/23/2023 Lack of Transportation (Non-Medical) No 04/23/2023 Patient Unable or Declines to Respond No 04/23/2023 OASIS B1300: Health Literacy Answer Sae e Recorded Frequency of needing help to read materials from doctor or pharmacy Never 04/23/2023 Humiliation, Afraid, Rape, and Kick questionnair e Answer Date Recorded Within the last year, have y ou been afraid of your partner or ex-partner? No 04/01/2023 Within the last year, have y ou been humiliated or emotionally abused in other ways by your partner or ex-partner? No Within the last year, have y ou been kicked, hit, slapped, or otherwise physically hurt by your partner or ex-partner? No 04/01/2023 Within the last year, have y ou been raped or forced to have any kind of sexual activity by your partner or ex-partner? No 04/01/2023 Overall Financial Resource Strain (CARDIA) Answe r Date Recorded How hard is it for you to pa y for the very basics like food, housing, medical care, and heating? Not hard at all 04/01/2023 Hunger Vital Sign Answer Date Recorded Within the past 12 months, y ou worried that your food would run out before you got the money to buy more. Never true 04/01/20 23 Within the past 12 months, t he food you bought just didn't last and you didn't have money to get more. Never true 04/01/2023 PRAPARE - Transportation Answer Date Re corded In the past 12 months, has l ack of transportation kept you from medical appointments or from getting medications? No 03/17 In the past 12 months, has l ack of transportation kept you from meetings, work, or from getting things needed for daily living? No 04/01/2023 Housing Stability Vital Sign Answer Sae e Recorded In the last 12 months, was t here a time when you were not able to pay the mortgage or rent on time? No 04/01/2023 In the last 12 months, how many places have you lived? 1 04/01/2023 In the last 12 months, was t here a time when you did not have a steady place to sleep or slept in a halfway (including now)? No 04/01/2023 Sex and Gender Information Value Date Recorded Sex Assigned at Not on file Legal Sex Male 8:27 PM CDT Gender Identity Not on file Sexual Orientation Not on file Last Filed Vital Signs Vital Sign Reading Time Taken Comments Blood Pressure 110/56 04/14/2023 10:29 AM CDT Pulse 56 04/14/2023 10:29 AM CDT Temperature 36.6 C (97.9 F) 04/14/2023 10:29 AM CDT Respiratory Rate 18 04/14/2023 10:2 9 AM CDT Oxygen Saturation 96% 04/14/2023 10: 29 AM CDT room air at rest Inhaled Oxygen Concentration - - Weight 89.5 kg (197 lb 5 oz) 04/08/2023 3:00 AM CDT Height 182.9 cm (6') 04/03/2023 4:01 AM CDT Body Mass Index 26.76 04/03/2023 4:01 AM CDT Plan of Treatment Health Maintenance Due Date Last Done Comments ASCVD LDL 1938 ASCVD Statin 1938 Lipid Panel 1938 Diabetes: Retinopathy Eye Exam 1956 Annual Medicare Wellness Visit 2003 RSV Immunization or 60+ Years (1 - 1-dose 75+ series) 2013 Pneumococcal Vaccine: 65+ Years (3 of 3 - PPSV23 or PCV20) 12/17/2022 12/17/2021, 05/30/2003 Hemoglobin A1C 07/03/2023 04/02/2023 COVID-19 Vaccine ( season) 2024 06/09/2022, 11/23/2021, 05/20/2021, Additional history exists Influenza Adult (#1) 2024 05/03/2020, 05/19/2018, 05/17/2016, Additional history exists DTaP, Tdap and Td Vaccines (4 - Td or Tdap) 01/30/2032 01/29/2022, 01/25/2017, 02/04/2012, Additional history exists Zoster Vaccines Completed 11/11/2021, 08/17, 06/09/2011 Meningococcal B Vaccine Aged Out No l onger eligible based on patient's age to complete this topic Meningococcal Vaccine Aged Out No danay jam eligible based on patient's age to complete this topic RSV Immunizations Under 20 Months Aged Out No longer eligible based on patient's age to complete this topic Procedures Procedure Name Priority Date/Time Associated Diagnosis Comments HEMOGLOBIN, GLYCOSYLATED Routine 04/02/2023 2:50 AM CDT from Last 3 Months or Most Recently Relevant to Health Maintenance Results * (ABNORMAL) HEMOGLOBIN, GLYCOSYLATED (04/02/2023 2:50 AM CDT) HGB A1C 9.3(H) <5.7 % 04/02/2023 9:30 AM CDT [facility] Comment: ADA GUIDELINES 2010 5.7 TO 6.4% INCREASED RISK OF DIABETES > OR = 6.5% CONSISTENT WITH DIABETES ESTIMATED AVG GLUCOSE 220 mg/dL 04/02/2023 9:30 AM CDT [facility] 04/02/2023 2:50 AM CDT [facility] Final Resul t [facility] [address] [place] [address], [place] [phone] from Last 3 Months or Most Recently Relevant to Health Maintenance Insurance MEDICARE [facility] [employer] Advance Directives * Full Code (Latest Code Status on File) Date Activated Date Inactivated Comments 04/09/2023 3:16 PM * Full Code Date Activated Date Inactivated Comments 04/01/2023 6:55 PM 04/08/2023 1:29 PM Care Teams Cap Sizer Relationship Specialty Start Date End Date Neema Garay PA [address] [place] [address] PCP - General 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
[2024-09-28 10:09] LABS: Glucose Point of Care 177 mg/dl (65-105)
== END 2024-09-27 02:40 | disposition expired ==
LOC: ANHED 06:35
PROVIDERS: Emergency Provider Student in an Organized Health Care Education/Training Program; PCP Physician Assistant
DX: I46.9 Cardiac arrest, cause unspecified (principal); I11.0 Hypertensive heart disease with heart failure; I50.9 Heart failure, unspecified; E78.5 Hyperlipidemia, unspecified; E11.9 Type 2 diabetes mellitus without complications
CPT/HCPCS: 82948; 92950; 96374; 96375; 99285; J0171